=== PATIENT | female | born 1945 | race Caucasian/White ===

== ENCOUNTER 2019-03-09 13:08 | Outpatient (CLI) | payer MEDICARE, OTHER, SELFPAY ==
--- NOTE | 2019-03-09 12:45 | USCV_ITS ---
Josephine Ellis Age: 73 Gender: F : 1945 Exam Date: 03/09/2019 13:18 Ordering Phys: Osbaldo Garza DPM Technologist: [place] [facility] [place]: PVD RIGHT LEFT Brachial 139.00 mmHg Brachial 124.00 mmHg Pressure (mmHg) Waveform Pressure (mmHg) Waveform 168.00 High Thigh 165.00 151.00 Below Knee 160.00 163.00 [employer] 163.00 183.00 DPA 162.00 1.32 Ankle/Brachial Index 1.17 125.00 Pre-Exercise Toe Pressure 57.00 0.90 Pre-Exercise Toe/Brachial Index 0.41 FINDINGS Normal resting ABIs bilaterally Normal resting TBI on the right side Moderately diminished resting TBI on the left side PVR waveforms showing slight blunting of the dicrotic notch bilaterally CONCLUSIONS Normal resting BISI and TBI on the right side, s suggesting no significant arterial obstruction Normal BISI with abnormal TBI on the left side, suggestive of moderate peripheral artery disease, possibly involving the distal vessels Dr Gisela Conn MD [facility] (Electronically Signed) Final Date: 09 March 2019 18:55 S
--- NOTE | 2019-03-09 13:30 | US_ITS ---
WS: [id number] Ultrasound of the distal lateral aspect of the right leg, 03/09/2019 Clinical Data: right ankle bite Comparison: None. Findings: There is a large amount of subcutaneous fluid in the soft tissue superior to the right ankle. No absc ess is seen. There are no cysts or abnormal masses. US/US soft tissue/extremity [id number] Impression: 1. Subcutaneous fluid in the soft tissue superior to the right ankle. 2. Negative for abscess, seroma or cyst.
== END 2019-03-09 13:09 | disposition home or self-care (01) ==
PROVIDERS: Family Provider Family Medicine; PCP Family Medicine; Visit Provider Podiatrist Foot & Ankle Surgery
DX: S91.051A Open bite, right ankle, initial encounter (principal); X58.XXXA Exposure to other specified factors, initial encounter; I73.9 Peripheral vascular disease, unspecified; M79.9 Soft tissue disorder, unspecified
CPT/HCPCS: 76882; 93923

== ENCOUNTER 2019-03-20 12:47 | Outpatient (CLI) | payer MEDICARE, OTHER, SELFPAY ==
[2019-03-20 13:43] LABS: Immunoglobulin IGG 1360 mg/dL (700-1600)
== END 2019-03-20 12:48 | disposition home or self-care (01) ==
LOC: LAB 13:00
PROVIDERS: Family Provider Family Medicine; PCP Family Medicine; Visit Provider Podiatrist Foot & Ankle Surgery
DX: R21 Rash and other nonspecific skin eruption (principal)
CPT/HCPCS: 36415; 82784

== ENCOUNTER → 2019-04-03 08:30 | Outpatient (BNVA) | payer MEDICARE, OTHER, SELFPAY | PROVIDERS: Family Provider Family Medicine; PCP Family Medicine; Visit Provider Podiatrist Foot & Ankle Surgery | DX: R21 Rash and other nonspecific skin eruption (principal); A69.20 Lyme disease, unspecified; D49.2 Neoplasm of unspecified behavior of bone, soft tissue, and skin; L81.9 Disorder of pigmentation, unspecified | CPT/HCPCS: 88305 ==

== ENCOUNTER 2019-07-09 13:16 | Outpatient (CLI) | payer MEDICARE, OTHER, SELFPAY | END 2019-07-09 13:17 | disposition home or self-care (01) | LOC: WOUND 13:17 | PROVIDERS: Family Provider Family Medicine; PCP Family Medicine; Visit Provider Nurse Practitioner Family | DX: I96 Gangrene, not elsewhere classified (principal); L97.812 Non-pressure chronic ulcer of other part of right lower leg with fat layer exposed | CPT/HCPCS: 11042; 87070; 87077; 87176; 87186; 87205 ==

== ENCOUNTER 2019-07-16 07:55 | Outpatient (CLI) | payer MEDICARE, OTHER, SELFPAY | END 2019-07-16 07:56 | disposition home or self-care (01) | LOC: WOUND 07:58 | PROVIDERS: Family Provider Family Medicine; PCP Family Medicine; Visit Provider Nurse Practitioner Family | DX: I96 Gangrene, not elsewhere classified (principal); L97.812 Non-pressure chronic ulcer of other part of right lower leg with fat layer exposed | CPT/HCPCS: 11042 ==

== ENCOUNTER 2019-07-23 09:23 | Outpatient (CLI) | payer MEDICARE, OTHER, SELFPAY | END 2019-07-23 09:24 | disposition home or self-care (01) | LOC: WOUND 09:24 | PROVIDERS: Family Provider Family Medicine; PCP Family Medicine; Visit Provider Nurse Practitioner Family | DX: I87.2 Venous insufficiency (chronic) (peripheral) (principal); L97.812 Non-pressure chronic ulcer of other part of right lower leg with fat layer exposed | CPT/HCPCS: 11042 ==

== ENCOUNTER 2019-07-24 13:07 | Outpatient (CLI) | payer MEDICARE, OTHER, SELFPAY ==
--- NOTE | 2019-07-24 | USCV_ITS ---
Josephine Ellis Age: 73 Gender: F : 1945 Exam Date: 07/24/2019 13:10 Ordering Phys: Kadi Barnes Technologist: Justina Sanders [place] [facility] [place]ication: HISTORY: Patient has ulcers. PROCEDURES: Bilateral duplex Venous Insufficiency study of the Deep and Superficial systems was carried out according to normal protocol with the patient in supine positon for deep system and dependent position for the superficial system. FINDINGS: There is no evidence of bilateral deep vein thrombosis. No evidence of superficial thrombosis in the bilateral saphenous system. No evidence of reflux was noted in the bilateral deep venous system. No venous reflux noted in the bilateral greater saphenous vein. No venous reflux noted in the bilateral small saphenous vein. Venous reflux was demonstrated in the LEFT SFJ with a spectral display of greater than 500 milliseconds. CONCLUSIONS No evidence of DVT in the above-mentioned identifiable veins. No significant venous reflux in the superficial or deep veins The venous dimensions and the depth from the surface are as mentioned above Dr Gisela Conn MD [facility] (Electronically Signed) Final Date: 24 Jul 2019 15:43 S
== END 2019-07-24 13:08 | disposition home or self-care (01) ==
LOC: RAD 13:13
PROVIDERS: PCP Family Medicine; Visit Provider Nurse Practitioner Family
DX: M79.605 Pain in left leg (principal); M79.604 Pain in right leg; L97.929 Non-pressure chronic ulcer of unspecified part of left lower leg with unspecified severity; L97.919 Non-pressure chronic ulcer of unspecified part of right lower leg with unspecified severity
CPT/HCPCS: 93970

== ENCOUNTER 2019-07-30 09:15 | Outpatient (CLI) | payer MEDICARE, OTHER, SELFPAY | END 2019-07-30 09:16 | disposition home or self-care (01) | LOC: WOUND 09:16 | PROVIDERS: PCP Family Medicine; Visit Provider Nurse Practitioner Family | DX: I87.2 Venous insufficiency (chronic) (peripheral) (principal); L97.812 Non-pressure chronic ulcer of other part of right lower leg with fat layer exposed | CPT/HCPCS: 11042 ==

== ENCOUNTER 2019-08-03 14:10 | Outpatient (CLI) | payer MEDICARE, OTHER, SELFPAY | END 2019-08-03 14:11 | disposition home or self-care (01) | LOC: WOUND 14:11 | PROVIDERS: PCP Family Medicine; Visit Provider Nurse Practitioner Family | DX: I87.2 Venous insufficiency (chronic) (peripheral) (principal); L97.812 Non-pressure chronic ulcer of other part of right lower leg with fat layer exposed | CPT/HCPCS: 29581; G0463 ==

== ENCOUNTER 2019-08-05 13:11 | Outpatient (CLI) | payer MEDICARE, OTHER, SELFPAY | END 2019-08-05 13:12 | disposition home or self-care (01) | LOC: WOUND 13:13 | PROVIDERS: PCP Family Medicine; Visit Provider Thoracic Surgery (Cardiothoracic Vascular Surgery) | DX: Z51.89 Encounter for other specified aftercare (principal) | CPT/HCPCS: 29581 ==

== ENCOUNTER 2019-08-10 13:14 | Outpatient (CLI) | payer MEDICARE, OTHER, SELFPAY | END 2019-08-10 13:15 | disposition home or self-care (01) | LOC: WOUND 13:16 | PROVIDERS: PCP Family Medicine; Visit Provider Nurse Practitioner Family | DX: Z09 Encounter for follow-up examination after completed treatment for conditions other than malignant neoplasm (principal) | CPT/HCPCS: 99212; A6545 ==

== ENCOUNTER 2019-12-14 10:19 | Outpatient (CLI) | payer MEDICARE, OTHER, SELFPAY ==
--- NOTE | 2019-12-14 10:28 | MM_ITS ---
WS: [id number] BILATERAL SCREENING DIGITAL MAMMOGRAM WITH CAD HISTORY: SCREENING COMPARISON: 12/02/2018 and 09/17/2018 and 06/06/2017 Bilateral CC and MLO views submitted. Computer aided detection analyzed. Breast composition: There are scattered areas of fibroglandular density. No suspicious masses, microc alcifications or architectural distortion. Benign calcifications within each breast. MM/[place] [id number] IMPRESSION: BI-RADS: 2-Benign FOLLOW UP: 1 Year Follow-up
== END 2019-12-14 10:20 | disposition home or self-care (01) ==
LOC: RADSHAW 10:26
PROVIDERS: PCP Family Medicine; Visit Provider Family Medicine
DX: Z12.31 Encounter for screening mammogram for malignant neoplasm of breast (principal)
CPT/HCPCS: 77067

== ENCOUNTER → 2019-12-17 15:30 | Outpatient (BNVA) | payer MEDICARE, OTHER, SELFPAY | PROVIDERS: PCP Family Medicine; Visit Provider Orthopaedic Surgery | DX: M47.896 Other spondylosis, lumbar region (principal); G95.89 Other specified diseases of spinal cord; M54.5 Low back pain | CPT/HCPCS: 72100; 72114 ==

== ENCOUNTER 2020-01-04 08:31 | Outpatient (CLI) | payer MEDICARE, OTHER, SELFPAY ==
--- NOTE | 2020-01-04 09:00 | IR_ITS ---
WS: [id number] Lumbar myelogram, 01/04/2020 Clinical Data: Lumbar spine pain Comparison: Lumbar spine, 12/17/2019. Fluoroscopy time: 1.1 minutes. Findings: With the usual technique, a 22 gauge spinal needle was inserted into the lumbar subarachnoid space at L2-L3. The contrast material was hand injected. Approximately 15 mL of 240 mg/mL Omnipaque entered the lumba r subarachnoid space. No intramedullary or intradural defects could be seen. There are extradural def ects noted posteriorly at L1-L2, L2-L3, and L3-L4. The contrast material did not penetrate below the L5-S1 level. Flexion, extension and neutral lateral views demonstrated no change in subluxation. The osteoporosis, osteoarthritis and degenerative disc narrowing seen on the prior study remain the same. There is a d extroscoliosis. Again the retrolisthesis of L3 on L4 and L2 on L3 remain unchanged. There is limitati on of motion on flexion and extension. There is no change in the retrolisthesis. There is an anteroli sthesis of L5-S1 also unchanged and unaffected by flexion or extension. Wedging of the T12 and L1 gagan tebral bodies is seen again. There is sclerosis of both SI joints. IR/IR myelogram sp lumbar [id number] Impression: 1. Negative for intramedullary or intradural defects. 2. Extradural defects seen posteriorly at L1-L2, L2-L3 and L3-L4. 3. Osteoarthritis, osteoporosis, and limitation of motion on flexion or and ext ension unchanged. 4. Retrolisthesis at L2-L3, L3-L4 and anterolateral listhesis at L5-S1 unchange d. 5. Sclerosis of both SI joints. 6. Probable extradural defect at L5-S1 with lack of penetration of the contrast material distally.
--- NOTE | 2020-01-04 09:03 | CT_ITS ---
WS: [id number] CT of the lumbar spine, post myelogram, additional two-dimensional coronal and sagittal imaging was o btained. 01/04/2020 Clinical Data: Lumbar stenosis with neurogenic claudication Comparison: CT lumbar spine, 07/11/2016. DLP: 1840.[address] scans at [facility] use at least one of these dose optimization techniques: automat ed exposure control; mA and/or kV adjustment per patient size (includes targeted exams where dose is matched to clinical indication); or iterative reconstruction. Findings: There is extradural narrowing at L2-L3, L3-L4 and L5-S1. There is osteoarthritis of all lum bar vertebral bodies from L1 through L3. There is degenerative disc disease at T12-L1, L1-L2, L2-L3, L3-L4 and L5-S1. Retrolisthesis of L2 on L3 and L3 on L4 remain unchanged. There is an anterolisthesi s of L5 on S1. No compression fractures are seen. There is sclerosis of both SI joints. T12-L1: No canal stenosis, disc bulge or foraminal narrowing is seen. L1-L2: There is mild disc protrusion on the right causing minimal canal stenosis. Osteoarthritis of f acet joints can be seen. L2-L3: There is a posterior disc bulge causing canal stenosis along with facet joint hypertrophy caus ing bilateral foraminal stenosis. L3-L4: There is a posterior disc bulge worse on the left than the right along with facet joint hypert rophy causing canal and foraminal stenosis. L4-L5: There is a posterior uniform disc bulge causing canal stenosis along with facet joint hypertro phy causing bilateral foraminal stenosis. L5-S1: There is a posterior disc bulge causing mild canal stenosis along with facet joint arthritis c ausing foraminal stenosis. CT/CT lumbar spine w con [id number] Impression: 1. Retrolisthesis of L2 on L3 and L3 on L4 unchanged. 2. Anterolisthesis of L5 on S1 unchanged. 3. Multilevel degenerative disc disease and osteoarthritis. 4. Multilevel canal and foraminal stenosis.
[2020-01-04] MEDS: iohexol 240 mg/mL 50 mL Btl INTRATHECA (09:50)
== END 2020-01-04 08:32 | disposition home or self-care (01) ==
LOC: RADWPI 08:33
PROVIDERS: PCP Family Medicine; Visit Provider Orthopaedic Surgery
DX: M48.062 Spinal stenosis, lumbar region with neurogenic claudication (principal); M81.0 Age-related osteoporosis without current pathological fracture; M47.819 Spondylosis without myelopathy or radiculopathy, site unspecified; M51.36 Other intervertebral disc degeneration, lumbar region; M48.061 Spinal stenosis, lumbar region without neurogenic claudication
CPT/HCPCS: 62304; 72120; 72132; Q9966

== ENCOUNTER → 2020-01-08 09:59 | Outpatient (BNVA) | payer MEDICARE, OTHER, SELFPAY | PROVIDERS: PCP Family Medicine; Visit Provider Surgery | DX: Z11.59 Encounter for screening for other viral diseases (principal); R13.10 Dysphagia, unspecified | CPT/HCPCS: 87635 ==

== ENCOUNTER 2020-01-13 08:49 | Day surgery (SDC) | payer MEDICARE, OTHER, SELFPAY ==
[2020-01-12 15:09] VITALS: BMI 30.6
[2020-01-13 08:53] VITALS: BP 142/79; PULSE 71; RESP 18; TEMP 36.6; O2SAT 96
[2020-01-13] MEDS: sodium chloride 0.9% 1,000 ML 30 ML IV (09:14)
--- NOTE | 2020-01-13 09:50 | ANES.PREANE2 ---
Pre-Anesthetic Assessment Pre-Anesthetic Assessment: Height/Weight: Height 1.65 m Weight 83.461 kg Temp Pulse Resp BP Pulse Ox 97.9 F 71 18 142/79 96 01/13/20 08:53 01/13/20 08:53 01/13/20 08:53 01/13/20 08:53 01/13/20 08:53 Preop Diagnosis: dysphagia Proposed Procedure: Operation Date: 01/13/20 10:20 Proposed Procedures p EGD Dilation W/ Balloon 27768 R13.10(Not Applicable) - Adolfo Pearson MD Familial anesthetic complications: None Was Beta Michelle taken within 24 hours: N/A Last intake: Intake Last Liquid Date 01/12/20 Last Liquid Time 21:00 Last Solid Date 01/12/20 Last Solid Time 21:00 Social: Social History: No alcohol and No tobacco Exam: Pre-Anes Outpt Exam: alert, oriented x 3, clear to auscultation bilaterally and regular rate & rhythm Airway: Cervical ROM: WNL MP: 2 Dentition: Full CV/HEM: CV/HEM: HTN GI: Comments: dysphagia Anesthetic Plan: ASA status: 2 Anesthesia: MAC Risk of > 500 ml blood loss (7ml/kg in children): No Meds/Allergies Current Medications: Current Medications Generic Name Dose Route Start Last Admin Trade Name Freq PRN Reason Stop Dose Admin Sodium Chloride 1,000 mls @ 30 ml s/hr 01/13/20 09:00 01/13/20 09:14 Sodium Chloride 0.9% IV 30 mls/hr .Q24H KARO Administration PFSH Anesthesia PFSH: Medical History (Updated 12/17/19 @ 16:27 by Enio Bojorquez DO) Squamous cell carcinoma of right lower leg Surgical History H/O esophagogastroduodenoscopy H/O knee surgery H/O right knee surgery History of hysterectomy for indication other than cancer S/P foot surgery, left Status post colonoscopy Status post laparoscopic cholecystectomy Social History Smoking and tobacco status: never smoked Alcohol intake: never Lives independently: Yes Household members: spouse Marital status: Current occupational status: retired History of recent travel: No Data Anesthesia Cardiac Studies: No Data to Display
[2020-01-13 12:03] VITALS: BP 128/78; PULSE 85; RESP 18; TEMP 36.6; O2SAT 96
[2020-01-13 12:19] VITALS: BP 132/89; PULSE 81; RESP 18; TEMP 36.6; O2SAT 96
--- NOTE | 2020-01-13 21:03 | ANE.PACU2 ---
Inpatient post-anesthesia follow up: Airway intact: Yes Vital signs: Temperature 97.9 F Pulse Rate 81 Respiratory Rate 18 Blood Pressure 132/89 Pulse Oximetry 96 Oxygen Delivery Me thod Room Air Oxygen Flow Rate Fraction of Inspir ed Oxygen Hydration adequate: Yes Nausea and vomiting: No Pain level: 2 Mental status: Baseline
--- NOTE | 2020-01-14 14:45 | W.PM.OPSUD ---
Surgery/Procedure H&P Update DATE OF PROCEDURE: January 13, 2020 DATE H&P PERFORMED: 12/14/19 H&P UPDATE INFORMATION: I have reviewed H&P completed within last 30 days, I have examined patient prior to procedure and No changes to prior documentation PREOP DIAGNOSIS: dysphagia PLANNED PROCEDURE: Operation Date: 01/13/20 10:20 Proposed Procedures p EGD Dilation W/ Balloon 72434 R13.10(Not Applicable) - Adolfo Pearson MD
== END 2020-01-13 13:04 | disposition home or self-care (01) ==
PROVIDERS: PCP Family Medicine; Visit Provider Surgery
DX: R13.10 Dysphagia, unspecified (principal); K44.9 Diaphragmatic hernia without obstruction or gangrene; K22.2 Esophageal obstruction; I10 Essential (primary) hypertension; Z90.710 Acquired absence of both cervix and uterus; Z90.49 Acquired absence of other specified parts of digestive tract; Z79.82 Long term (current) use of aspirin; K21.9 Gastro-esophageal reflux disease without esophagitis; Z85.828 Personal history of other malignant neoplasm of skin
CPT/HCPCS: 12345; 43249; J2704; J3490; J7030

== ENCOUNTER 2020-01-27 09:50 | Outpatient (CLI) | payer MEDICARE, OTHER, SELFPAY ==
--- NOTE | 2020-01-27 09:55 | FL_ITS ---
WS: [id number] Barium swallow and esophagram, upper GI series with air, 01/27/2020 Clinical Data: R13.10 - Dysphagia, unspecified Comparison: Upper GI series, 04/06/2016. Fluoroscopy time: 1.0 minutes. Findings: The patient swallowed the thick and thin barium, and it flowed to the hypopharynx without hesitation. No stricture, mass, polyp or erosion was seen. No aspiration or penetration was seen. The barium passed into the esophagus and there was normal motility throughout. There is moderate narr owing of the distal esophagus which may represent the site of the dilatation. No hiatal hernia, reflu x, stricture, polyp, mass, erosion or ulcer was noted. No reflux was present. The patient has a large paraesophageal hiatal hernia unchanged in position. The stomach showed no erosion, polyp mass or ulcer. The rotation of the stomach and its location in t he lower chest have not changed. The duodenal bulb filled normally without ulcer or erosion. The smal l bowel is located on the right side of the abdomen which has been noted before.. FL/FL upper GI w air* [id number] Impression: 1. Smooth narrowing of the distal esophagus which may be the site of the dilata tion. 2. Large paraesophageal hiatal hernia with a malrotation of the stomach unchang ed. 3. Negative for ulcer, reflux, mass or erosion. 4. Malrotation of small bowel unchanged.
== END 2020-01-27 09:51 | disposition home or self-care (01) ==
LOC: RADWPI 09:55
PROVIDERS: PCP Family Medicine; Visit Provider Surgery
DX: R13.10 Dysphagia, unspecified (principal); K44.9 Diaphragmatic hernia without obstruction or gangrene
CPT/HCPCS: 74246

== ENCOUNTER → 2020-02-11 14:44 | Outpatient (BNVA) | payer MEDICARE, OTHER, SELFPAY | PROVIDERS: PCP Family Medicine; Referring Provider Family Medicine; Visit Provider Nurse Practitioner Family | DX: N39.0 Urinary tract infection, site not specified (principal); Z87.440 Personal history of urinary (tract) infections | CPT/HCPCS: 81003; 87086 ==

== ENCOUNTER → 2020-03-11 10:20 | Outpatient (BNVA) | payer MEDICARE, SELFPAY | PROVIDERS: PCP Family Medicine; Visit Provider Urology | DX: N39.0 Urinary tract infection, site not specified (principal) | CPT/HCPCS: 81003 ==

== ENCOUNTER → 2020-03-21 10:30 | Outpatient (BNVA) | payer MEDICARE, SELFPAY | PROVIDERS: PCP Family Medicine; Visit Provider Anesthesiology Pain Medicine | DX: M48.062 Spinal stenosis, lumbar region with neurogenic claudication (principal); M47.816 Spondylosis without myelopathy or radiculopathy, lumbar region; M51.36 Other intervertebral disc degeneration, lumbar region; M43.10 Spondylolisthesis, site unspecified; Z79.891 Long term (current) use of opiate analgesic | CPT/HCPCS: 99204 ==

== ENCOUNTER → 2020-05-06 12:59 | Outpatient (BNVA) | payer MEDICARE, SELFPAY | PROVIDERS: PCP Family Medicine; Visit Provider Anesthesiology Pain Medicine | DX: M47.816 Spondylosis without myelopathy or radiculopathy, lumbar region (principal); M48.062 Spinal stenosis, lumbar region with neurogenic claudication | CPT/HCPCS: 64493; 64494; 64495 ==

== ENCOUNTER → 2020-05-26 09:24 | Outpatient (BNVA) | payer MEDICARE, SELFPAY | PROVIDERS: PCP Family Medicine; Visit Provider Anesthesiology Pain Medicine | DX: M51.36 Other intervertebral disc degeneration, lumbar region (principal); M48.062 Spinal stenosis, lumbar region with neurogenic claudication; M47.816 Spondylosis without myelopathy or radiculopathy, lumbar region; M43.10 Spondylolisthesis, site unspecified; M79.604 Pain in right leg; Z79.891 Long term (current) use of opiate analgesic | CPT/HCPCS: 99214 ==

== ENCOUNTER → 2020-08-30 14:40 | Outpatient (BNVA) | payer MEDICARE, SELFPAY | PROVIDERS: PCP Family Medicine; Visit Provider Nurse Practitioner Family | DX: N39.0 Urinary tract infection, site not specified (principal) | CPT/HCPCS: 81003 ==

== ENCOUNTER → 2021-04-03 07:57 | Outpatient (BNVA) | payer MEDICARE, SELFPAY | PROVIDERS: PCP Family Medicine; Visit Provider Nurse Practitioner Family | DX: N39.0 Urinary tract infection, site not specified (principal) | CPT/HCPCS: 81003 ==

== ENCOUNTER 2021-07-20 12:24 | Outpatient (CLI) | payer MEDICARE, SELFPAY ==
--- NOTE | 2021-07-20 12:41 | CT_ITS ---
WS: [id number] CT LUMBAR SPINE, noncontrast. HISTORY: BACK PAIN ACUTE TECHNIQUE: Contiguous 2.5 mm axial imaging are performed. Sagittal and coronal reformats are submitte d and reviewed. All CT scans at [facility] use at least one of these dose optimization techni ques: automated exposure control; mA and/or kV adjustment per patient size (includes targeted exams w here dose is matched to clinical indication); or iterative reconstruction. IV contrast: None DLP: 2150.47 mGy.cm COMPARISON: 01/04/2020 Severe degenerative thoracolumbar scoliosis. Increase in the lumbar lordosis. Marked osteopenia. Retr olisthesis of L2 and L3 by 3 and 4 mm, respectively. L5 anterolisthesis by 4.6 mm. New fracture noted through the L4 vertebral body. Fracture extends to the mid body anterior to posterior with only mini mal loss of height by approximately 10-15% on the RIGHT. No additional new fracture. No acute sacral fracture is identified. L1-2: Mild osteophytic ridging and facet arthritis. Annular disc bulging with no stenosis. L2-3: Annular disc bulging and osteophytic ridging. Very small LEFT subarticular disc protrusion. L3-4: Mild diffuse annular disc bulging with ligamentum flavum and facet arthritis. Osteophytic ridgi ng. Disc and osteophyte encroachment upon the ventral thecal sac resulting in mild central and bilate ral subarticular recess stenosis and mild foraminal stenosis. L4-5: Marked facet joint arthritis with moderate annular disc bulging and osteophytic ridging. Modera te RIGHT and mild LEFT foraminal stenosis. L5-S1: Mild osteophytic ridging and annular disc bulging. Osteophytes encroach into the subarticular recesses. Mild bilateral foraminal stenosis. Marked sclerosis involving the RIGHT SI joint. Sclerosis involves the sacral and iliac side of the poncho int. There is air and mild widening of the SI joints and erosions. These findings were also present i 2019 with only mild progression. CT/CT lumbar spine wo con* [id number] IMPRESSION: 1. New L4 compression fracture by approximately 10-15%. No retropulsion. New s arthur 01/04/2020. Appears acute to subacute. 2. Advanced degenerative disc and spondylitic changes throughout the lumbar sp ine with rotary scoliosis and increased lumbar lordosis. 3. Mild central and bilateral subarticular recess and foraminal stenosis at L3 -4 with disc encroachment into the subarticular recesses. 4. Ligamentum flavum hypertrophy at L4-5 and facet arthritis resulting in mild central and subarticular recess stenosis and moderate RIGHT foraminal stenosis . 5. L5 anterolisthesis by 4.6 mm.
--- NOTE | 2021-07-20 12:51 | CT_ITS ---
WS: [id number] CT PELVIS WITHOUT CONTRAST. HISTORY: ACUTE BACK PAIN TECHNIQUE: Contiguous imaging is performed of the pelvis without contrast. Coronal and sagittal refor mats are reviewed. All CT scans at [facility] use at least one of these dose optimization leora hniques: automated exposure control; mA and/or kV adjustment per patient size (includes targeted exam s where dose is matched to clinical indication); or iterative reconstruction. DLP: 2150.47 mGy.cm COMPARISON: 05/22/2018 Diffuse osteopenia. No pelvic fracture is identified. Severe RIGHT SI joint sclerosis with degenerati ve air, erosions and mild widening. Similar findings but to a lesser extent on the LEFT. No insuffici ency fracture is identified. Patient does have known L4 vertebral body fracture which is incompletely visualized on this examination. 5 mm anterolisthesis of L5. No pubic rami fracture. Mild narrowing o f the hip joints. Very mild osteoarthritic changes at the hip joints. No hip fracture. Small umbilical hernia contains fat only. Atherosclerosis aorta. CT/CT pelvis wo con [id number] IMPRESSION: 1. Severe bilateral sacroiliitis, likely osteoarthritis. Psoriatic arthritis i s also a possible etiology for the SI joint degeneration. 2. No pelvic fracture. 3. Partially visualized and recently reported L4 compression fracture.
== END 2021-07-20 12:25 | disposition home or self-care (01) ==
PROVIDERS: PCP Family Medicine; Visit Provider Family Medicine
DX: M54.89 Other dorsalgia (principal); M46.1 Sacroiliitis, not elsewhere classified; M85.80 Other specified disorders of bone density and structure, unspecified site
CPT/HCPCS: 72131; 72192

== ENCOUNTER → 2021-10-02 13:41 | Outpatient (BNVA) | payer MEDICARE, SELFPAY | PROVIDERS: PCP Family Medicine; Visit Provider Nurse Practitioner Family | DX: N39.0 Urinary tract infection, site not specified (principal) | CPT/HCPCS: 81003; 99213 ==

== ENCOUNTER → 2021-10-10 07:50 | Outpatient (BNVA) | payer MEDICARE, SELFPAY | PROVIDERS: PCP Family Medicine; Visit Provider Orthopaedic Surgery | DX: M43.10 Spondylolisthesis, site unspecified (principal); M48.062 Spinal stenosis, lumbar region with neurogenic claudication | CPT/HCPCS: 99214 ==

== ENCOUNTER → 2021-10-17 15:05 | Outpatient (BNVA) | payer MEDICARE, SELFPAY | PROVIDERS: PCP Family Medicine; Visit Provider Family Medicine | DX: M51.36 Other intervertebral disc degeneration, lumbar region (principal); M48.062 Spinal stenosis, lumbar region with neurogenic claudication; M54.9 Dorsalgia, unspecified | CPT/HCPCS: 80053; 85025; 85610 ==

== ENCOUNTER 2021-11-13 08:51 | Outpatient (CLI) | payer MEDICARE, OTHER, SELFPAY ==
--- NOTE | 2021-11-13 08:58 | MM_ITS ---
WS: [id number] BILATERAL SCREENING DIGITAL TOMOSYNTHESIS MAMMOGRAM WITH CAD HISTORY: SCREENING COMPARISON: 12/14/2019 and 09/17/2018 Bilateral CC and MLO views with tomosynthesis and synthetic mammography submitted. Computer aided det ection analyzed. Breast composition: There are scattered areas of fibroglandular density. No suspicious masses, microc alcifications or architectural distortion. Benign scattered calcifications within each breast. MM/[place] [id number] IMPRESSION: BI-RADS: 2-Benign FOLLOW UP: 1 Year Follow-up
== END 2021-11-13 08:52 | disposition home or self-care (01) ==
PROVIDERS: PCP Family Medicine; Visit Provider Family Medicine
DX: Z12.31 Encounter for screening mammogram for malignant neoplasm of breast (principal)
CPT/HCPCS: 77063; 77067

== ENCOUNTER 2021-12-05 10:08 | Outpatient (CLI) | payer MEDICARE, OTHER, SELFPAY | END 2021-12-05 10:09 | disposition home or self-care (01) | PROVIDERS: PCP Family Medicine; Visit Provider Orthopaedic Surgery | DX: Z01.818 Encounter for other preprocedural examination (principal) | CPT/HCPCS: 93005 ==

== ENCOUNTER 2021-12-11 15:50 | Inpatient (IN) | payer MEDICARE, SELFPAY ==
[2021-12-05 09:46] VITALS: BMI 28.9
--- NOTE | 2021-12-05 10:08 | ECG_ITS ---
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 Measurements Intervals [place] Rate: 62 P: 18 HI: 179 QRS: -5 QRSD: 98 T: 27 QT: 386 QTc: 394 Interpretive Statements SINUS RHYTHM Compared to ECG 06/10/2017 14:22:17 No significant changes Electronically Signed On 12-06-2021 8:20:20 CDT by Sandor Kumar M.D. [email or web address] Processing Devices [email or web address]/[id number]
--- NOTE | 2021-12-05 10:22 | ANES.PREANE2 ---
Pre-Anesthetic Assessment Height/Weight: Height 1.65 m Weight 78.925 kg Preop Diagnosis: dysphagia Operation Date: 12/11/21 10:15 Proposed Procedures p Spinal Fusion T9 [id number]/M43.10(Not Applicable) - Enio Bojorquez DO s Posterior Lumbar Interbody Fusion L5/S1(Not Applicable) - Enio Bojorquez DO s Lumbar Spine Decompression L3/4 L4/5 L5/S1(Not Applicable) - Enio Bojorquez DO Familial anesthetic complications: Feels she gets memory loss after each anesthesia, post-op shivering Social No alcohol and No tobacco Exam alert, oriented x 3, clear to auscultation bilaterally and regular rate & rhythm Airway Mallampati: Class II Dentition: full Pulmonary None reported CV/HEM Hypertension None reported Hepatic None reported GI Gastroesophageal Reflux Disease and Hiatal Hernia causes L arm pain Musc/skel Lower Back Pain leg edema, states her mother even had it Neuropsych None reported Anesthetic Plan ASA status: 3 Anesthesia: General Risk of > 500 ml blood loss (7ml/kg in children): No Medications/Allergies Home Medications Medication Instructions Recorded Confirmed Last Taken Type ascorbic acid (vitamin C) 500 mg 1,000 mg PO DAILY 02/26/19 12/05/21 1 Day Ago History capsule ~01/12/20 diclofenac potassium 25 mg capsule 25 mg PO BID 02/26/19 12/05/21 1 Day Ago History ~01/12/20 furosemide 40 mg tablet 40 mg PO QAM 02/26/19 12/05/21 1 Day Ago History ~01/12/20 calcium carbonate 500 mg calcium 500 mg PO DAILY 02/11/20 12/05/21 Unknown History (1,250 mg) tablet (Calcium 500) cinnamon bark 500 mg capsule 500 mg PO DAILY 02/11/20 12/05/21 Unknown History (Cinnamon) multivitamin,gx-wpbf-perzafgh 1 tab PO DAILY 02/11/20 12/05/21 Unknown History (Complete Multivitamin tablet) potassium chloride 20 mEq 20 meq PO DAILY 02/11/20 12/05/21 Unknown History tablet,extended release vitamin B complex (B 1 tab PO DAILY 02/11/20 12/05/21 Unknown History Complex-Vitamin B12 tablet) biotin 5 mg capsule 5 mg PO DAILY 04/03/21 12/05/21 Unknown History hydrocodone 5 mg-acetaminophen 325 0.5 tab PO Q8H PRN pain 1 month 11/27/21 12/05/21 Unknown Rx mg tablet #20 tabs tramadol 50 mg tablet 50 mg PO QID PRN pain 15 days #90 11/27/21 12/05/21 Unknown Rx tabs Allergies Allergy/AdvReac Type Severity Reaction Status Date / Time acetaminophen [From Percocet] Allergy Unknown Unknown Verified 12/05/21 09:41 ketorolac [From Toradol] Allergy Unknown Unknown Verified 12/05/21 09:41 oxycodone [From Percocet] Allergy Unknown Unknown Verified 12/05/21 09:41 PFS Anesthesia Medical History Recurrent UTI Squamous cell carcinoma of right lower leg Surgical History H/O esophagogastroduodenoscopy (01/13/20) H/O knee surgery H/O right knee surgery History of hysterectomy for indication other than cancer S/P foot surgery, left Status post colonoscopy Status post laparoscopic cholecystectomy Family History Mother , AT AGE 91 Stroke Father , at age 87 No problems noted. Social History Smoking and tobacco status: former smoker Second hand smoke exposure: No Alcohol intake: never Lives independently: Yes Household members: spouse Marital status: Current occupational status: retired History of recent travel: No Data Anesthesia : 12/05/21 09:58 Cardiac Studies: No Data to Display
[2021-12-05 10:38] LABS: Anion Gap 12.3 (5-19); Blood Urea Nitrogen 18 mg/dL (8-23); Calcium 9.3 mg/dL (8.5-10.5); Carbon Dioxide 31 mmol/L (22-29); Chloride 101 mmol/L (98-107); Glucose 81 mg/dL (65-115); Osmolality Calculated 291 mOsm/kg (285-295); Potassium 4.3 mmol/L (3.5-5.1); Sodium 140 mmol/L (136-145)
[2021-12-11] VITALS (32 sets, daily range): BP systolic 89–146; BP diastolic 50–83; PULSE 68–93; RESP 12–18; TEMP 36.1–36.9; O2SAT 91–99
--- NOTE | 2021-12-11 | SCC_ITS ---
Procedure done: 1.? T19 - pelvis posterolateral fusion 2. T9to S1 instrumentation 3. lumbo pelvic instrumentation 4. Open SI joint fusion (88534) Right 5. Open SI joint fusion (19454) Left 5. L3/4 laminectomy with partial facetectomies 6. L4/5 laminectomy with partial facetectomies 7. L5/S1 laminectomy with partial facetectomies 8. computer navigation/ stereotactic for spine 9. Bone marrow aspirate from right iliac crest 10. use of autograft 11. use of allograft 0.34 seconds of fluoroscopic guidance, for a cumulative dose of 73.1 mGy, was provided to Dr. Bojorquez by the radiology department. C-arm images of the lumbar spine were saved for the patient's permanent record. [facility]
[2021-12-11] MEDS: sodium chloride 0.9% 1,000 ML 30 ML IV (09:03)
--- NOTE | 2021-12-11 09:36 | P.ANESUD_ITS ---
Pre-Anesthetic Update Pre-Anesthetic Assessment: Date of Surgery/Procedure: 12/11/21 Preop Soraya gnosis: DDD T/L spine, lumbar stenosis with neurogenic claudication Proposed Procedure: Operation Date: 12/11/21 10:00 Proposed Procedures p Spinal Fusion T9 [id number]/M43.10(Not Applicable) - Enio Bojorquez, DO s Posterior Lumbar Interbody Fusion L5/S1(Not Applicable) - Enio Bojorquez, DO s Lumbar Spine Decompression L3/4 L4/5 L5/S1(Not Applicable) - Enio Bojorquez, DO Any changes to Pre-Anesthetic Assessment?: No Last Intake: Intake Last Liquid Date 12/10/21 Last Liquid Time 20:00 Last Solid Date 12/10/21 Last Solid Time 22:30 Vitals: Temperature 97.7 F 12/11/21 08:42 Temperature Source Temporal Artery S can 12/11/21 08:42 Pulse Rate 68 12/11/21 08:42 Respiratory Rate 18 12/11/21 08:42 Blood Pressure 146/77 12/11/21 08:42 Blood Pressure Ginger n 100 12/11/21 08:42 Pulse Oximetry 96 12/11/21 08:42 Oxygen Delivery Me thod 12/11/21 08:43 Exam: Pre-Anes Outpt Exam: alert, oriented x 3, clear to auscultation bilaterally and regular rate & rhythm Cardiac Studies: No Data to Display
--- NOTE | 2021-12-11 09:56 | P.HP_ITS ---
Providers/Chief Complaint Primary Care Provider: Pato Coelho MD Chief Complaint: PSF/DECOMPRESSION/PLIF History of Present Illness Josephine Ellis is a 76 year old female ?low back pain. She rates her pain a 3/10 today to her low back and right buttocks. She states her pain increases as the day progresses to a 8/10. She enjoys working in her yard and gardening and has been unable to do so due to pain. She walks bent forward and will try to stand up straight however this does cause her pain. She has tried bilateral L3/4, L4/5, and L5/S1 facet injections and physical therapy in the past with no relief. She has a history of previous spine surgery?right L5-S1 hemilaminotomy/discectomy/foraminotomy?done by Dr. Gunderson in 03/2015. Review of Systems General: Reports: 10 or more systems reviewed and unremarkable except in HPI a nd below Const: Denies: fever(s) or chills Eyes: Denies: change in vision ENMT: Denies: throat pain Card: Denies: chest pain Resp: Denies: dyspnea or productive cough GI: Reports: abdominal pain; Denies: nausea or vomiting : Denies: urinary incontinence Musc: Reports: back pain, extremity pain and limited range of motion Skin/Breast: Denies: rash Neuro: Reports: numbness in extremities and weakness in extremities; Denies: headache(s) Psych: Denies: anxiety Endo: Denies: polyuria Hemant/Lymph: Denies: easy bleeding All/Imm: Denies: urticaria Medications/Allergies Home Medications Medication Instructions Recorded Confirmed Last Taken Type ascorbic acid (vitamin C) 500 mg 1,000 mg PO DAILY 02/26/19 12/11/21 12/10/21 History capsule diclofenac potassium 25 mg capsule 25 mg PO BID 02/26/19 12/11/21 12/10/21 History furosemide 40 mg tablet 40 mg PO QAM 02/26/19 12/11/21 12/10/21 History calcium carbonate 500 mg calcium 500 mg PO DAILY 02/11/20 12/11/21 12/10/21 History (1,250 mg) tablet (Calcium 500) cinnamon bark 500 mg capsule 500 mg PO DAILY 02/11/20 12/11/21 12/10/21 History (Cinnamon) multivitamin,er-juvt-lpetjbes 1 tab PO DAILY 02/11/20 12/11/21 12/10/21 History (Complete Multivitamin tablet) potassium chloride 20 mEq 20 meq PO DAILY 02/11/20 12/11/21 12/10/21 History tablet,extended release vitamin B complex (B 1 tab PO DAILY 02/11/20 12/11/21 12/10/21 History Complex-Vitamin B12 tablet) biotin 5 mg capsule 5 mg PO DAILY 04/03/21 12/11/21 12/10/21 History tramadol 50 mg tablet 50 mg PO QID PRN pain 15 days #90 11/27/21 12/11/21 1 Rx tabs magnesium 500 mg tablet 500 mg PO DAILY 12/11/21 12/11/21 12/10/21 History Allergies Allergy/AdvReac Type Severity Reaction Status Date / Time ketorolac [From Toradol] Allergy Unknown Unknown Verified 12/05/21 09:41 oxycodone [From Percocet] Allergy Unknown Unknown Verified 12/05/21 09:41 PFSH Acute PFSH: Medical History Recurrent UTI Squamous cell carcinoma of right lower leg Surgical History H/O esophagogastroduodenoscopy (01/13/20) H/O knee surgery H/O right knee surgery History of hysterectomy for indication other than cancer S/P foot surgery, left Status post colonoscopy Status post laparoscopic cholecystectomy Family History Mother , AT AGE 91 Stroke Father , at age 87 No problems noted. Social History Smoking and tobacco status: former smoker Second hand smoke exposure: No Alcohol intake: never Lives independently: Yes Household members: spouse Marital status: Current occupational status: retired History of recent travel: No Vitals/I&O/Wt Last Vital Signs Temp 97.7 F 12/11/21 08:42 Pulse 68 12/11/21 08:42 Resp 18 12/11/21 08:42 BP 146/77 12/11/21 08:42 Pulse Ox 96 12/11/21 08:42 O2 Del Method 12/11/21 08:43 Physical Exam Narrative: CONSTITUTIONAL: The patient is a normal appearing [] in no apparent distress. GENERAL: Patient in no acute distress. CARDIAC: Regular rate and rhythm. CHEST: Normal inspiratory effort, normal respiratory rate. ABDOMEN: Soft and nontender. SKIN: Clear, warm and intact. NEURO?PSYCH: The patient is alert and oriented to person, place and time. Sensorv /SILT Motor StrengthShoulder abduction C5 5/5Wrist extension C6 5/5Elbow extension C7 5/5Hand Correctional Program Specialist C8 5/5Finger abduction T15/5 Radial/ Ulnar/ Median n intact LowerSensory (SILT)Motor StrengthHin flexion L2/3Ant/inner thigh 5/5Hip adduction L2/3 5/5Knee extension L4 Lat thigh, 5/5Toe dorsiflexion L5 5/5Ankle dorsiflexion L5/ C76Cekavks flexion S1 5/5 DTRBleeps 2+Triceps 2+Brachioradialis 2+Patellar 2+Achilles 2+ Data : 12/05/21 09:58 A&P Assessment and plan (1) Spondylolisthesis: T9-Pelvis fusion with decompression Attestations Medical Necessity Statement*: failed conservtive tx Coding Level of Care Code Acute Toy Stuffer for Chg Fwd Diagnoses Spondylolisthesis M43.10
[2021-12-11] MEDS: ceFAZolin 2,000 MG in sodium chloride 0.9% (plus) 50 ML 100 MG IV ×3 (10:09→22:46)
[2021-12-11] MEDS: vancomycin 1,000 MG SDV 1000 MG XX (11:18)
[2021-12-11] MEDS: heparin, porcine 1,000 unit/mL INJ 10 mL 10000 UNIT XX ×2 (11:21→11:24)
[2021-12-11 15:23] LABS: Hematocrit 28.2 % (37.0-47.0)
--- NOTE | 2021-12-11 15:30 | SUR.OPER ---
family updated of surgical status
--- NOTE | 2021-12-11 16:30 | XR_ITS ---
WS: [id number] INTRAOPERATIVE TECHNIQUE: 3 Spot fluoroscopic images for intraoperative purposes. FLUOROSCOPY TIME: 34 seconds CLINICAL INFORMATION: OR PICS COMPARISON: None. FINDINGS: Pedicle screw fixation with interconnecting rides approximately T9-S1 with sacroiliac fixation screws . XR/XR lumbar spine 1V [id number] IMPRESSION: Images obtained for intraoperative purposes.
--- NOTE | 2021-12-11 16:44 | PM.OP ---
Operative Report Date of procedure: December 11, 2021 Pre-op diagnosis: Preop Diagnosis DDD T/L spine, lumbar stenosis with neurogenic claudication Post-op diagnosis: same Procedure done: 1.? T19 - pelvis posterolateral fusion 2. T9to S1 instrumentation 3. lumbo pelvic instrumentation 4. Open SI joint fusion (39221) Right 5. Open SI joint fusion (72347) Left 5. L3/4 laminectomy with partial facetectomies 6. L4/5 laminectomy with partial facetectomies 7. L5/S1 laminectomy with partial facetectomies 8. computer navigation/ stereotactic for spine 9. Bone marrow aspirate from right iliac crest 10. use of autograft 11. use of allograft Surgeon: Enio Bojorquez Platform Operations Director: Dileep Amato Platform Operations Director: The surgical garment fitter, Dileep Amato, THERON was needed for his expertise under the microscope. He was important and necessary throughout the procedure to complete in a safe and timely manner. He assisted with patient positioning prepping and draping tissue retraction suctioning of the operative field protection of the dural sac and tissue closure Estimated blood loss (mL): 1,000 Procedure: 1.? T19 - pelvis posterolateral fusion 2. T9to S1 instrumentation 3. lumbo pelvic instrumentation 4. Open SI joint fusion (77325) Right 5. Open SI joint fusion (97666) Left 5. L3/4 laminectomy with partial facetectomies 6. L4/5 laminectomy with partial facetectomies 7. L5/S1 laminectomy with partial facetectomies 8. computer navigation/ stereotactic for spine 9. Bone marrow aspirate from right iliac crest 10. use of autograft 11. use of allograft Patient is brought to the operative suite.? After undergoing anesthesia, the patient had neuro monitoring attached.? Patient was then placed in the prone position on the Taran table.? All areas of impingement were well-padded.? Patient was then prepped and draped in the normal sterile fashion.? Skin incision was then made over the T10 to S1.? Subperiosteal dissection was made out to the transverse processes of T9 down to L5.? And also exposing the sacral ala over the L5/S1 facet.? The SI joints were also exposed.? Next attention was brought to obtaining the bone marrow aspirate.? The [employer] bone marrow aspirate kit was used to aspirate bone marrow aspirate.? This was done by using the sharp probe to open up the bone.? Aspiration was performed and then the blunt probe was then used to dissect down to through the bone tunnel.? An aspirating well drawn back a millimeter approximately 20 cc of bone marrow aspirate was used.? Admixed with the allograft and autograft bone that will be used. Is brought to placing the fiducial for the computer navigation.? The computer navigation fiducial was hooked up to 2 pins were placed into the right iliac crest.? These 2 pins were later moved at the end of the case.? The C-arm was brought in and spun around the patient and then the information was linked to the computer in order to facilitate placing the screws. Next attention was brought to placing the sacral ala iliac screws.? These were done bilaterally.? The right side was done first.? The gearshift was placed using computer navigation.? And then the pedicle feeler was inserted in order to facilitate that there were no breaches.? This was also placed in order to facilitate marking where the screw was going to go.? Because Next the attention was brought to placing the open sacral iliac joint fusion.? The exposure was done over the sacroiliac joint.? Using the gearshift probe the SI joint was identified and a K wire was placed into the sacroiliac joint.? Tissue protectors were passed around the sacroiliac joint pain and then a drill was placed into the sacroiliac joint going in the parallel fashion into the SI joint.? Next a allograft cage was placed into the SI joint.? This was done superior to the plan.? The same process was repeated inferior to the pin.? Next attention was placed to placing the right sacral ala iliac screw using computer navigation this is a 80 mm 9.5 mm Adams screw. Next attention was brought to the left side.he gearshift was placed using computer navigation.? And then the pedicle feeler was inserted in order to facilitate that there were no breaches.? This was also placed in order to facilitate marking where the screw was going to go.? Because Next the attention was brought to placing the open sacral iliac joint fusion.? The exposure was done over the sacroiliac joint.? Using the gearshift probe the SI joint was identified and a K wire was placed into the sacroiliac joint.? Tissue protectors were passed around the sacroiliac joint pain and then a drill was placed into the sacroiliac joint going in the parallel fashion into the SI joint.? Next a allograft cage was placed into the SI joint.? This was done superior to the plan.? The same process was repeated inferior to the pin.? Next attention was placed to placing the right sacral ala iliac screw using computer navigation this is a 90 mm 9.5 mm Kash screw. A total of 4 cages were placed into the bilateral sacral iliac joints. Next attention was brought to placing the pedicle screws.? The technique for placing the pedicle screws was to use a drill followed by the gearshift probe.? Followed by the ball probe to feel the superior inferior medial lateral li of the pedicles.? Then placement of the screws.? Was done at each pedicle.? Screws were placed at S1 bilaterally, L5 bilaterally L4 bilaterally L3 bilaterally L2 on the left L1 on the right T12 bilaterally T11 bilaterally, T10 bilaterally and T9 bilaterally.? Next attention was brought to performing the laminectomy ofL3.? This was done using the high-speed bur Kerrisons and curettes.? Once the lamina was removed and then attention was brought to performing a partial facetectomy on the contralateral side.? This was done again using the high-speed bur curettes and Kerrisons.? The ligamentum flavum was taken down bilaterally from L3 to L4.? Attention was then brought to the facet on the ipsilateral side.? The facet was taken down.? The L4 nerve was decompressed as it passed around the L4 pedicle bilateral.? The laminectomy was done for purposes of decompressing the nerve ? The L3 nerve was identified as it traversed through the L3/4 foramen bilateral.? Next attention was brought to performing the laminectomy ofL4.? This was done using the high-speed bur Kerrisons and curettes.? Once the lamina was removed and then attention was brought to performing a partial facetectomy on the contralateral side.? This was done again using the high-speed bur curettes and Kerrisons.? The ligamentum flavum was taken down bilaterally from L4 to L5.? Attention was then brought to the facet on the ipsilateral side.? The facet was taken down.? The L5 nerve was decompressed as it passed around the L5 pedicle bilateral.? The laminectomy was done for purposes of decompressing the nerve ? The L4 nerve was identified as it traversed through the L4/5 foramen bilateral. Next attention was brought to performing the laminectomy ofL5.? This was done using the high-speed bur Kerrisons and curettes.? Once the lamina was removed and then attention was brought to performing a partial facetectomy on the contralateral side.? This was done again using the high-speed bur curettes and Kerrisons.? The ligamentum flavum was taken down bilaterally from L5 to S1.? Attention was then brought to the facet on the ipsilateral side.? The facet was taken down.? The S1 nerve was decompressed as it passed around the S1 pedicle bilateral.? The laminectomy was done for purposes of decompressing the nerve ? The L5 nerve was identified as it traversed through the L5 foramen bilateral. Attention was then brought to attaching the rods to the screws placed in the T10 down to S1 bilaterally and attaching onto the sacral ala iliac screw bilaterally.? Caps were torqued into position. Locking the construct in place. Wound was copiously irrigated and then attention was brought to decorticating the facets and transverse processes laterally.? Bone that was taken down from the lamina was used along with osteoamp fibers and sponges were packed into the lateral gutters along the facet joints.? This was done bilaterally. Wound was then closed in a layered fashion starting with the thoracolumbar fascia.? 0-vicryl was used the sub cutaneous tissue was closed with 2-0 vicryl and skin with 4-0 monocryl.? Glue was then used to seal the skin and a steril dressing was applied.? Patient was then placed in the supine position. The endotracheal tube was removed and patient was transferred to the PACU in stable condition.
[2021-12-11] MEDS: morphine 4 mg/mL SDV 1 mL 2 MG IVP ×5 (18:51→23:57)
[2021-12-11] MEDS: lactated ringers 1,000 ML 90 ML IV (18:51)
--- NOTE | 2021-12-11 18:59 | SUR.PHASEI ---
1705 SCDs on pump and working. 1750 500 cc sanginous drainage emptied from hemovac. Dr Bojorquez aware and ordered to infuse 1 unit PRBCs and H/H after blood infused.
--- NOTE | 2021-12-11 20:27 | ANE.PACU2 ---
Inpatient post-anesthesia follow up: Airway intact: Yes Vital signs: Temperature 97.5 F Pulse Rate 87 Respiratory Rate 14 Blood Pressure 105/60 Pulse Oximetry 98 Oxygen Delivery Me thod Nasal Cannula Oxygen Flow Rate 3 Fraction of Inspir ed Oxygen Hydration adequate: Yes Nausea and vomiting: No Pain level: 1 Mental status: Baseline
[2021-12-12] VITALS (14 sets, daily range): BP systolic 97–107; BP diastolic 50–58; PULSE 81–121; RESP 12–24; TEMP 37–37.8; O2SAT 90–98
[2021-12-12] MEDS: HYDROcodone-acetaminophen 5-325 mg Tablet PO ×4 (00:57→17:34)
[2021-12-12 02:09] LABS: Hematocrit 28.8 % (37.0-47.0)
[2021-12-12] MEDS: morphine 4 mg/mL SDV 1 mL 2 MG IVP ×8 (02:46→19:33)
[2021-12-12] MEDS: ceFAZolin 2,000 MG in sodium chloride 0.9% (plus) 50 ML 100 MG IV ×2 (06:23→15:14)
[2021-12-12] MEDS: FUROsemide 40 mg Tablet PO (06:24)
--- NOTE | 2021-12-12 07:19 | PM.PN ---
Subjective Subjective: POD 1 Patient resting. Denies any chest pain, shortness of breath, headaches. Vitals/I&O/Wt Last Vital Signs Temp 100.0 F H 12/12/21 05:15 Pulse 93 12/12/21 05:15 Resp 18 12/12/21 05:38 BP 103/50 12/12/21 05:15 Pulse Ox 93 12/12/21 05:15 O2 Del Method 12/12/21 05:15 O2 Flow Rate 3 12/12/21 05:15 12/11/21 12/12/21 12/12/21 22:59 06:59 14:59 Intake Total 2750 / 2800 540 / 3340 Output Total 1999 / 1999 950 / 2950 Balance 750 / 800 -410 / 390 Physical Exam Narrative: Patient presents alert very somnolent with a good general appearance normal mood and affect. Normal coordination normal stability. Moderate tenderness around the incisional site with the incision appear to have some bloody discharge with Hemovac drain intact. No signs of erythema or drainage. No signs of infection. Patient denies any fevers or chills. 4/5 motor strength both lower extremities with negative straight leg raise bilaterally. Calves are supple no medial thigh tenderness. Pulses are 2+ at the dorsalis pedis and posterior tibial region. Good capillary refill throughout normal sensation light touch both lower extremities. Urinary Catheter Management: Fair: Cath Placed During This Visit: yes Reason for Continuing Indwelling Catheter: Perioperative Use in Selected Surgeries Urinary Catheter Date of Insertion: 12/11/21 Urinary Catheter Time of Insertion: 11:00 Data : 12/12/21 01:57 12/05/21 09:58 A&P Assessment and plan (1) Acute blood loss as cause of postoperative anemia: Physical therapy to evaluate and mobilize. Encourage incentive spirometry for pulmonary toilet. We will have social services counselor evaluate for possible home health care or placement. (2) S/P spinal fusion: Attestations Medical Necessity Statement*: New labs today to evaluate acute blood loss anemia and obtain better pain control. Coding Level of Care Code Acute Window Air Conditioner Installer for Joyce Romero Diagnoses Acute blood loss as cause of postoperative anemia D62 S/P spinal fusion Z98.1
[2021-12-12 08:15] LABS: Hematocrit 27.5 % (37.0-47.0); Hemoglobin 8.7 g/dL (11.5-15.3)
[2021-12-12] MEDS: TRAMadol 50 mg Tablet PO ×2 (08:17→15:15)
[2021-12-12] MEDS: ondansetron 2 mg/ML SDV 2 mL 4 MG IVP (08:18)
[2021-12-12] MEDS: ascorbic acid 500 mg Tablet 1000 MG PO (08:18)
[2021-12-12] MEDS: lactated ringers 1,000 ML 90 ML IV ×2 (08:18→20:05)
[2021-12-12] MEDS: docusate sodium 100 mg Capsule PO ×2 (08:19→20:07)
[2021-12-12] MEDS: lanolin oint 7 gm 1 APPLIC TOPICAL (15:14)
[2021-12-13] VITALS (12 sets, daily range): BP systolic 91–111; BP diastolic 50–73; PULSE 80–119; RESP 16–22; TEMP 36.5–37.3; O2SAT 78–95
[2021-12-13] MEDS: HYDROcodone-acetaminophen 5-325 mg Tablet PO ×2 (02:19→21:25)
[2021-12-13] MEDS: FUROsemide 40 mg Tablet PO (06:02)
[2021-12-13] MEDS: TRAMadol 50 mg Tablet PO (06:02)
--- NOTE | 2021-12-13 06:39 | PM.PN ---
Subjective Subjective: POD 2 Patient resting. Complains of lightheadedness and dizziness. She states the tramadol makes her itch. Denies any chest pain, shortness of breath, headaches. Vitals/I&O/Wt Last Vital Signs Temp 97.7 F 12/13/21 04:34 Pulse 80 12/13/21 04:34 Resp 22 H 12/13/21 04:34 BP 91/56 12/13/21 04:34 Pulse Ox 95 12/13/21 04:34 O2 Del Method 12/12/21 20:24 O2 Flow Rate 3 12/12/21 13:25 12/12/21 12/12/21 12/13/21 14:59 22:59 06:59 Intake Total 0 / 0 1050 / 1050 Output Total 175 / 175 Balance 0 / 0 1050 / 1050 -175 / 875 Physical Exam Narrative: Patient presents alert and oriented x3 with a good general appearance normal mood and affect. Normal coordination normal stability. Mild tenderness around the incisional site with the incision appear clean and dry. Hemovac intact. No signs of erythema or drainage. No signs of infection. Patient denies any fevers or chills. 4/5 motor strength both lower extremities with negative straight leg raise bilaterally. Calves are supple no medial thigh tenderness. Pulses are 2+ at the dorsalis pedis and posterior tibial region. Good capillary refill throughout normal sensation light touch both lower extremities. Urinary Catheter Management: Fair: Cath Placed During This Visit: yes, but has since been removed by the nurse Reason for Continuing Indwelling Catheter: Decision to DC Catheter Urinary Catheter Date of Insertion: 12/11/21 Urinary Catheter Time of Insertion: 11:00 Date Urinary Catheter Removed: 12/12/21 Time Urinary Catheter Discontinued: 16:00 Data : 12/12/21 08:00 12/05/21 09:58 A&P Assessment and plan (1) Acute blood loss as cause of postoperative anemia: Patient is symptomatic complaining of lightheadedness and dizziness with increased heart rate blood pressures in the 90s. She denies any chest pain we will type and cross and transfuse 1 unit of packed red blood cells. Ordered H&H following got transfusion. We will also get a basic metabolic panel. Physical therapy continue to mobilize. oil well services dispatcher to evaluate for placement. Continue incentive spirometry for pulmonary toilet. Discontinue Hemovac drain. Patient states the tramadol makes her itch we will switch to hydrocodone fives 1 every 4-6 hours as needed pain (2) S/P spinal fusion: Attestations Medical Necessity Statement*: Transfuse today continue to mobilize with physical therapy once medically stable possibly home tomorrow. Coding Level of Care Code Acute Senior Stock Plan Administrator for Joyce Romero Diagnoses Acute blood loss as cause of postoperative anemia D62 S/P spinal fusion Z98.1
[2021-12-13 07:41] LABS: Anion Gap 12.8 (5-19); Blood Urea Nitrogen 12 mg/dL (8-23); Calcium 8.3 mg/dL (8.5-10.5); Carbon Dioxide 26 mmol/L (22-29); Chloride 104 mmol/L (98-107); Glucose 118 mg/dL (65-115); Osmolality Calculated 289 mOsm/kg (285-295); Potassium 3.8 mmol/L (3.5-5.1); Sodium 139 mmol/L (136-145)
[2021-12-13] MEDS: lactated ringers 1,000 ML 90 ML IV (07:50)
[2021-12-13] MEDS: docusate sodium 100 mg Capsule PO ×2 (09:49→18:42)
[2021-12-13] MEDS: ascorbic acid 500 mg Tablet 1000 MG PO (09:49)
--- NOTE | 2021-12-13 10:20 | PC.NURSE ---
dr amaro nurse dale barnard notified of non formulary home medication that the pt didnt get today ...dale is sending him a message reguarding this
--- NOTE | 2021-12-13 10:28 | PC.CHAP ---
Pastoral Care Encounter/Spiritual Assessment Type of Contact [] Declined layer out visit [] Patient/Family/Request visit [] Outpatient visit [] Follow-up visit [] Physician referral [] Code/Alert [x] Routine visit [] Staff referral [] Actively dying [] Patient sleeping [] Family support [] [] Out of room [] Palliative care [] [x] Receiving care in room [] Pre-surgical visit [] Trauma [] Long length of stay [] ICU visit [] Other: Relational/Emotional Strength [] Patient feels connected with others/family/visitors/staff [] Distress [] Loneliness/isolation [] Abandonment Spirituality of Patient [] Person of [place] [] Attends Restorationism of their [place] [] Believes in Prayer [] Reads Bible or Gnosticist materials [] There are Spiritual issues to be addressed Communication And Outreach Manager Interventions [x] Prayer [] Active listening [] Non-anxious presence [] Spiritual/emotional support [] Crisis/trauma care [] Spiritual counseling [] Bereavement support [] Provided bereavement packet [] Provided Bible/devotional materials [] Provided toy/stuffed animal, coloring book to patient or family member [] Provided Communion [] Anointing/[place] [] Salvation [] Completed spiritual assessment [] Other: Impact on Illness or Injury [] Angry [] Fearful [] Anxious [] Often cries [] Exhaustion [] Unable to work [] Unable to attend shinto [] Unable to walk/stand [] Unable to read [] Unable to drive [] Unable to eat/drink [] Unable to sleep [] Unable to be with family [] Patient intubated [] Other: Summary Time spent with patient
[2021-12-13 20:07] LABS: Hematocrit 28.1 % (37.0-47.0); Hemoglobin 9.4 g/dL (11.5-15.3)
[2021-12-14] VITALS (7 sets, daily range): BP systolic 98–113; BP diastolic 49–69; PULSE 82–91; RESP 15–18; TEMP 36.6–37.1; O2SAT 92–95
[2021-12-14] MEDS: lactated ringers 1,000 ML 90 ML IV ×2 (02:56→15:00)
[2021-12-14] MEDS: HYDROcodone-acetaminophen 5-325 mg Tablet PO ×4 (03:02→20:39)
[2021-12-14] MEDS: FUROsemide 40 mg Tablet PO (06:00)
--- NOTE | 2021-12-14 06:59 | P.PN_ITS ---
Subjective Subjective: POD 3 Patient more alert and smiling this morning. Back pain is improving. She is moving gas. Denies any shortness of breath, chest pain, headaches. Vitals/I&O/Wt Last Vital Signs Temp 97.8 F 12/14/21 04:52 Pulse 83 12/14/21 04:52 Resp 15 12/14/21 04:52 BP 113/69 12/14/21 04:52 Pulse Ox 94 12/14/21 04:52 O2 Del Method 12/14/21 04:52 O2 Flow Rate 1 12/14/21 04:52 12/13/21 12/13/21 12/14/21 14:59 22:59 06:59 Intake Total 1000 / 1000 1470 / 2470 Output Total 100 / 100 1300 / 1400 100 / 1500 Balance 900 / 900 170 / 1070 -100 / 970 Physical Exam Narrative: Patient presents alert and oriented x3 with a good general appearance normal mood and affect. Normal coordination normal stability. Moderate tenderness around the incisional site with the incision appear to be clean and dry. Extensive bruising to the thoracic region, no signs of i nfection. Patient denies any fevers or chills. 4/5 motor strength both lower extremities with negative straight leg raise bilaterally. Calves are supple no medial thigh tenderness. Pulses are 1+ at the dorsalis pedis and posterior tibial region. Good capillary refill throughout normal sensation light touch both lower extremities. Urinary Catheter Management: Fair: Cath Placed During This Visit: yes, but has since been removed by the nurse Reason for Continuing Indwelling Catheter: Decision to DC Catheter Urinary Catheter Date of Insertion: 12/11/21 Urinary Catheter Time of Insertion: 11:00 Date Urinary Catheter Removed: 12/12/21 Time Urinary Catheter Discontinued: 16:00 Data : 12/13/21 19:30 12/13/21 07:05 A&P Assessment and plan (1) S/P spinal fusion: Continue physical therapy to work on mobilizing in the halls. Discussed with the nurse for laxative of choice to help with bowel movements. Continue incentive spirometry for pulmonary toilet. Discussed at length with the nurse and the patient regarding placement and will have social media job titles evaluate. Concerned that she will need a [place] [facility] facility for more rehab prior to discharge home. She is ready for discharge at this point pending placement. We will see her back in the office in 1 week's time for a wound check. (2) Acute blood loss as cause of postoperative anemia: Attestations Medical Necessity Statement*: Ready for discharge when placement found Coding Level of Care Code Acute Bellhop Service Captain for Chg Fwd Diagnoses S/P spinal fusion Z98.1 Acute blood loss as cause of postoperative anemia D62
[2021-12-14] MEDS: ascorbic acid 500 mg Tablet 1000 MG PO (09:46)
[2021-12-14] MEDS: docusate sodium 100 mg Capsule PO ×2 (09:47→18:05)
--- NOTE | 2021-12-14 11:53 | PC.SOCIAL ---
IMM Update pg 2 of IMM updated and reviewed w/ patient. Copy provided and copy dated, initialed and placed in chart.
[2021-12-15] MEDS: lactated ringers 1,000 ML 90 ML IV (00:14)
[2021-12-15] MEDS: HYDROcodone-acetaminophen 5-325 mg Tablet PO ×3 (01:02→09:53)
[2021-12-15 03:53] VITALS: BP 111/61; PULSE 86; RESP 17; TEMP 37; O2SAT 93
[2021-12-15] MEDS: FUROsemide 40 mg Tablet PO (05:39)
--- NOTE | 2021-12-15 06:45 | PM.PN ---
Subjective Subjective: Patient states she has been getting better every day. She feels really better this morning as did yesterday. She is still struggling to get out of bed herself. She would like to stay in the hospital or go to custodial however the custodial not available. We will see how she does with physical therapy today but hopefully get her discharged this afternoon. Vitals/I&O/Wt Last Vital Signs Temp 98.6 F 12/15/21 03:53 Pulse 86 12/15/21 03:53 Resp 17 12/15/21 03:53 BP 111/61 12/15/21 03:53 Pulse Ox 93 12/15/21 03:53 O2 Del Method 12/15/21 03:53 O2 Flow Rate 1 12/14/21 04:52 12/14/21 12/14/21 12/15/21 14:59 22:59 06:59 Intake Total 1350 / 1350 150 / 1500 831 / 2331 Output Total 150 / 150 Balance 1350 / 1350 150 / 1500 681 / 2181 Physical Exam Narrative: Resting in bed comfortably moving all extremities. Urinary Catheter Management: Fair: Cath Placed During This Visit: yes, but has since been removed by the nurse Reason for Continuing Indwelling Catheter: Decision to DC Catheter Urinary Catheter Date of Insertion: 12/11/21 Urinary Catheter Time of Insertion: 11:00 Date Urinary Catheter Removed: 12/12/21 Time Urinary Catheter Discontinued: 16:00 Data : 12/13/21 19:30 12/13/21 07:05 A&P Assessment and plan (1) S/P spinal fusion: Patient is status post lumbar spine fusion. Would like to get working physical therapy today and hopefully get her discharged today. Attestations Medical Necessity Statement*: pain control Coding Level of Care Code Acute Eggs Inspector for Blug Fwd Diagnoses S/P spinal fusion Z98.1
--- NOTE | 2021-12-15 06:47 | PM.DCS ---
Discharge Providers Date of Admission: 12/11/21 15:50 Date of Discharge: December 15, 2021 Attending Provider at Admission: Enio Bojorquez DO Attending Provider at Discharge: Enio Bojorquez DO Primary Care Provider: Pato Coelho MD Diagnoses at Discharge Discharge Diagnosis (1) S/P spinal fusion: Status: Acute Reason for Visit Reason for Visit: PSF/DECOMPRESSION/PLIF Hospital Course Hospital Course uneventful Physical Exam Urinary Catheter Management: Fair: Cath Placed During This Visit: yes, but has since been removed by the nurse Reason for Continuing Indwelling Catheter: Decision to DC Catheter Urinary Catheter Date of Insertion: 12/11/21 Urinary Catheter Time of Insertion: 11:00 Date Urinary Catheter Removed: 12/12/21 Time Urinary Catheter Discontinued: 16:00 Discharge Data Studies Completed and Pending Completed Studies During Hospitalization Category Date Time Status XR lumbar spine 1V 32211 Routine Exams 12/11/21 16:30 Completed Pending at discharge Category Date Time Status Leukocyte Reduced RBC Routine Lab 12/13/21 09:00 Results Type and Screen Routine Lab 12/13/21 09:00 Results Radiology Impressions Lumbar Spine X-Ray 12/11/21 16:30 IMPRESSION: Images obtained for intraoperative purposes. Laboratory Results Hgb 9.4 g/dL (11.5-15.3) L 12/13/21 19:30 Hct 28.1 % (37.0-47.0) L 12/13/21 19:30 Sodium 139 mmol/L (136-145) 12/13/21 07:05 Potassium 3.8 mmol/L (3.5-5.1) 12/13/21 07:05 Chloride 104 mmol/L (98-107) 12/13/21 07:05 Carbon Dioxide 26 mmol/L (22-29) 12/13/21 07:05 Anion Gap 12.8 (5-19) 12/13/21 07:05 BUN 12 mg/dL (8-23) 12/13/21 07:05 Creatinine 0.6 mg/dL (0.5-0.9) 12/13/21 07:05 GFR Calculation Not Reportable 12/13/21 07:05 Glucose 118 mg/dL (65-115) H 12/13/21 07:05 Calculated Osmolality 289 mOsm/kg (285-295) 12/13/21 07:05 Calcium 8.3 mg/dL (8.5-10.5) L 12/13/21 07:05 Blood Type O Positive 12/13/21 09:00 Rho(D) Type Positive 12/13/21 09:00 Antibody Screen Negative 12/13/21 09:00 Crossmatch See Detail 12/13/21 09:00 Vitals Last Vital Signs Temp 98.6 F 12/15/21 03:53 Pulse 86 12/15/21 03:53 Resp 17 12/15/21 03:53 BP 111/61 12/15/21 03:53 Pulse Ox 93 12/15/21 03:53 O2 Del Method 12/15/21 03:53 O2 Flow Rate 1 12/14/21 04:52 Discharge Plan Discharge Patient Disposition: Home Condition: Stable Prescriptions: New hydrocodone-acetaminophen 5-325 mg tablet 1 - 2 tab PO .Q4-6H Qty: 40 0RF Continued furosemide 40 mg tablet 40 mg PO QAM diclofenac potassium 25 mg capsule 25 mg PO BID ascorbic acid (vitamin C) 500 mg capsule 1,000 mg PO DAILY cinnamon bark [Cinnamon] 500 mg capsule 500 mg PO DAILY potassium chloride 20 mEq tablet extended release 20 meq PO DAILY Complete Multivitamin Tablet 1 tab PO DAILY vitamin B complex [B Complex-Vitamin B12] Tablet 1 tab PO DAILY calcium carbonate [Calcium 500] 500 mg calcium (1,250 mg) tablet 500 mg PO DAILY biotin 5 mg capsule 5 mg PO DAILY tramadol 50 mg tablet 50 mg PO QID PRN (Reason: pain) 15 Days Qty: 90 0RF magnesium 500 mg Tablet 500 mg PO DAILY Discharge Orders: Discharge Order (Routine); Ordered 12/15/21 Ordered By: Enio Bojorquez Other Ambulatory Orders: DME: [facility] (Order) Location: None Selected Ordered By: Enio Bojorquez Discharge Diet: Advance as tolerated Discharge Activity: Limit activity as instructed Patient Instructions: Opioid Safety Activity Restrictions/Additional Instructions: Thank you for [facility] for your care! The following is a list of instructions, from your provider, to follow upon your discharge to ensure you have the optimal recovery from your recent injury orsurgery. Follow-up care is a nesbitt part of your treatment and safety. Be sure to make and go to all appointments, and call your doctor if you are having problems. If you do not already have a follow-up appointment made, call Dr. Bojorquez office in the next 1-3 days to make follow up appointment for 1 weeks at [phone]. It is also a good idea to know your test results and keep a list of the medicines you take. Medications will be prescribed for you at your provider's discretion. These medications are to be used as instructed; if they are taken more often that prescribed they will not be refilled early and in most cases will not be refilled at all. > When a refill is needed,you should contact annel lacey 2-3 business days before your prescription runs out. Medications will NOT be refilled by regional climate change analyst providers after hours! > Many pain medications contain Tylenol (Acetaminophen). Do not consume more than 4,000 mg of Tylenol per day in total with any combination ofmedications. > Pain medications can cause constipation. Please use an over the counter stool softener as directed, while taking pain medications. Consulty our local pharmacist with questions or recommendations on stool softeners. If constipation persists, contact our office or your primary care provider. > While under our care,you are not to receive pain medications or other controlled substances from any other provider unless our office is notified and approves. Any attempts to do so will result in refusal to prescribe any further pain medications and possible dismissal from our practice. ? ? Showering is permitted, however we ask that you do not take a bath, sit in a whirlpool / Jacuzzi, or go swimming for 1 month. For only the first 2 days after surgery, lt wilt be necessary for you to cover your wound/dressing with plastic and tape to keep it dry. ? Walking is essential for the healing process after surgery. We would like you to slowly advance your walking. This should be done on relatively flat clear ground (inside or out) or can be done on a treadmill. Remember this goal does not have to happen all at once, slowly increase your distance and duration. This can be broken into more more than one walk per day as tolerated. Patients who walk as directed after surgery rarely require Physical Therapy. In the unlikely event this issue arises your provider will direct hospital staff to make the appropriate arrangements. ? No lifting over 5 pounds {a gallon of milk) or bending/twisting until further notice. Each of these activities places an unnecessary amount of stress onto the body and can impede the delicate healing process. > Instead of bending at the waist, keep your back straight and bend at the knees. > Instead of twisting your torso, keep your back straight and turn your entire body with your feet. ? You may sleep in any position which makes you comfortable. Many patients find comfort sleeping in a reclining chair. It is not abnormal to have difficulty sleeping for the first several weeks following your surgery. We recommend trying Benadry! or Tylenol PM as directed to help with your sleeping difficulties. Both medications are over the counter and available withoutprescription. ? NO SMOKING!!! Smoking dramatically increases the probability of developing postoperative wound infections. ? Common complaints after lumbar and/or thoracic spine surgery include, but are not limited to: numbness and/or tingling in the legs, pain around the incision and surrounding tissues, muscle spasms, or stiffness of the middle to low back. Contact our office if these symptoms persist or if an acute change occurs. ? No driving for the first 3-5days, and not while taking narcotics [] until seen at your follow-up appointment and cleared. There are no restrictions for riding on short trips, however if you take a longer trip, arrangements should be made to make regular stops to get out of the vehicle and stretch . ? Swelling is an unfortunate event that will take place with any surgery and is the primary source of your postoperative discomfort. While walking and regular approved activities helps control inflammation, there are additional steps you can take to minimizeswelling. > Place ice over the surgical site and surrounding tissue for twenty minutes, followed by applying a low/medium heat (heating pad) for an additional twenty minutes every 1-2 hours as needed for painrelief. > You may use of over the counter anti-inflammatory medications (Ibuprofen, Motrin, Aleve, Advil, etc) as directed on the package label. These types of medicines wm significantly reduce the amount of discomfort you experience after surgery from swelling. It should be noted that if you have and allergy to any of these medications, or a history of ulcers or kidney disease you should consult you primary care provider prior to starting these medications. Discharge Attestations Time Spent in Discharge Care*: less than 30 min Quality Metrics Clinical Quality Measures [ No reported AMI, CVA or VTE this stay] Coding Level of Care Code Acute Chg FW DC note Diagnoses S/P spinal fusion Z98.1
[2021-12-15 08:00] VITALS: BP 132/67; PULSE 73; RESP 16; TEMP 36.4; O2SAT 93
[2021-12-15 08:04] VITALS: BP 111/61; PULSE 86; RESP 17; TEMP 37; O2SAT 93
[2021-12-15] MEDS: ascorbic acid 500 mg Tablet 1000 MG PO (09:16)
[2021-12-15] MEDS: docusate sodium 100 mg Capsule PO (09:16)
[2021-12-15 10:02] VITALS: BP 111/61; PULSE 86; RESP 17; TEMP 37; O2SAT 93
== END 2021-12-15 11:25 | disposition home health service (06) | DRG 457 ==
LOC: MEDSURG 15:50
PROVIDERS: Physician Assistant; Admitting Provider Orthopaedic Surgery; PCP Family Medicine; Visit Provider Orthopaedic Surgery
PROC: 0RG7071 Fusion of 2 to 7 Thoracic Vertebral Joints with Autologous Tissue Substitute, Posterior Approach, Posterior Column, Open Approach (ICD-10-PCS; principal; 2021-12-11 09:50)
PROC: 0RG7071 Fusion of 2 to 7 Thoracic Vertebral Joints with Autologous Tissue Substitute, Posterior Approach, Posterior Column, Open Approach (ICD-10-PCS; CPT 22612; 2021-12-11 09:50)
PROC: 0RG7071 Fusion of 2 to 7 Thoracic Vertebral Joints with Autologous Tissue Substitute, Posterior Approach, Posterior Column, Open Approach (ICD-10-PCS; CPT 63005; 2021-12-11 09:50)
DX: M43.16 Spondylolisthesis, lumbar region (principal); D62 Acute posthemorrhagic anemia; M48.062 Spinal stenosis, lumbar region with neurogenic claudication; Z98.1 Arthrodesis status; Z87.440 Personal history of urinary (tract) infections; Z85.828 Personal history of other malignant neoplasm of skin; Z87.891 Personal history of nicotine dependence; Z79.891 Long term (current) use of opiate analgesic
CPT/HCPCS: 36415; 36430; 51702; 72020; 76000; 80048; 85014; 85018; 86850; 86900; 86920; 97116; 97161; 97530; C1713; C1762; J1100; J1170; J1200; J1644; J2270; J2370; J2405; J2704; J3010; J3370; J3490; J7030; P9016; P9040; P9041

== ENCOUNTER → 2021-12-21 14:28 | Outpatient (BNVA) | payer MEDICARE, OTHER, SELFPAY | PROVIDERS: PCP Family Medicine; Visit Provider Orthopaedic Surgery | DX: Z98.1 Arthrodesis status (principal); Z47.89 Encounter for other orthopedic aftercare | CPT/HCPCS: 99024 ==

== ENCOUNTER → 2021-12-26 08:56 | Outpatient (BNVA) | payer MEDICARE, OTHER, SELFPAY | PROVIDERS: PCP Family Medicine; Visit Provider Orthopaedic Surgery | DX: Z47.89 Encounter for other orthopedic aftercare (principal); Z98.1 Arthrodesis status | CPT/HCPCS: 99024 ==

== ENCOUNTER → 2022-01-09 15:33 | Outpatient (BNVA) | payer MEDICARE, OTHER, SELFPAY | PROVIDERS: PCP Family Medicine; Visit Provider Physician Assistant | DX: Z98.1 Arthrodesis status (principal); Z47.89 Encounter for other orthopedic aftercare | CPT/HCPCS: 72100; 99024 ==

== ENCOUNTER → 2022-01-23 10:35 | Outpatient (BNVA) | payer MEDICARE, OTHER, SELFPAY | PROVIDERS: PCP Family Medicine; Visit Provider Orthopaedic Surgery | DX: Z47.89 Encounter for other orthopedic aftercare (principal); Z98.1 Arthrodesis status | CPT/HCPCS: 72100; 99024 ==

== ENCOUNTER → 2022-03-06 11:13 | Outpatient (BNVA) | payer MEDICARE, SELFPAY | PROVIDERS: PCP Family Medicine; Visit Provider Orthopaedic Surgery | DX: Z47.89 Encounter for other orthopedic aftercare (principal); Z98.1 Arthrodesis status | CPT/HCPCS: 72100; 99024 ==

== ENCOUNTER 2022-03-06 16:03 | Outpatient (RCR) | payer MEDICARE, SELFPAY | END 2022-03-27 23:59 | disposition home or self-care (01) | LOC: SPT 16:03 | PROVIDERS: PCP Family Medicine; Visit Provider Orthopaedic Surgery | DX: Z98.1 Arthrodesis status (principal) | CPT/HCPCS: 97110; 97161 ==

== ENCOUNTER → 2022-03-28 13:03 | Outpatient (BNVA) | payer MEDICARE, SELFPAY | PROVIDERS: PCP Family Medicine; Visit Provider Specialist | DX: M25.551 Pain in right hip (principal); Z96.651 Presence of right artificial knee joint; T84.84XA Pain due to internal orthopedic prosthetic devices, implants and grafts, initial encounter; M25.561 Pain in right knee; Y79.2 Prosthetic and other implants, materials and accessory orthopedic devices associated with adverse incidents | CPT/HCPCS: 73502; 73560; 73565 ==

== ENCOUNTER 2022-03-29 10:41 | Outpatient (RCR) | payer MEDICARE, SELFPAY | END 2022-04-14 23:59 | disposition home or self-care (01) | LOC: SPT 10:41 | PROVIDERS: PCP Family Medicine; Visit Provider Orthopaedic Surgery | DX: Z98.1 Arthrodesis status (principal) | CPT/HCPCS: 97110; 99205 ==

== ENCOUNTER → 2022-04-10 15:23 | Outpatient (BNVA) | payer MEDICARE, OTHER, SELFPAY | PROVIDERS: PCP Family Medicine; Visit Provider Orthopaedic Surgery | DX: T84.84XD Pain due to internal orthopedic prosthetic devices, implants and grafts, subsequent encounter (principal); X58.XXXD Exposure to other specified factors, subsequent encounter; Z98.1 Arthrodesis status | CPT/HCPCS: 72100; 99214 ==

== ENCOUNTER 2022-04-27 08:00 | Outpatient (CLI) | payer MEDICARE, OTHER, SELFPAY ==
--- NOTE | 2022-04-27 08:16 | NM_ITS ---
WS: [id number] THREE-PHASE BONE SCAN HISTORY: history of right knee replacement, RIGHT knee pain. COMPARISON: Radiograph 03/28/2022 Patient is is injected with 24.7 mCi Tc99m HDP intravenously. Immediate angiographic phase imaging is performed over the area of concern. Static blood pool imaging also performed. Two-hour whole-body sc intigrams performed in anterior and posterior projections. Additional large field of view imaging sub mitted as necessary. Status post RIGHT total knee replacement. Angiographic and static blood pool phases are normal. There is no increased uptake involving the RIGHT knee surrounding the prosthesis. There is a small am ount of increased uptake in the lateral compartment of the LEFT knee. Radiographically there is degen erative joint disease with bone upon bone. Moderate increased uptake in one of the midthoracic vertebral bodies, probably T8. No prior radiograp hs. This may be due to osteoporotic compression fracture. No history of malignancy. There is mild add itional moderate uptake within the AC joints, wrist and elbow joints and mid tarsal articulations. Bi lateral SI joint uptake. Normal soft tissue uptake. Activity is noted within the kidneys. NM/NM bone 3 phase 40372 IMPRESSION: 1. Normal bone scan imaging RIGHT knee status post arthroplasty. No evidence f or infection or loosening. 2. LEFT knee lateral compartment osteoarthritic changes. 3. Moderate increased uptake in one of the midthoracic vertebral bodies, proba dougie T8. With no history of prior malignancy this may represent an osteoporotic fracture. This can be further evaluated by thoracic spine radiographs.
== END 2022-04-27 08:01 | disposition home or self-care (01) ==
PROVIDERS: PCP Family Medicine; Visit Provider Specialist
DX: M25.561 Pain in right knee (principal); M17.12 Unilateral primary osteoarthritis, left knee
CPT/HCPCS: 78315; A9561

== ENCOUNTER 2022-05-04 09:07 | Inpatient (IN) | payer MEDICARE, OTHER, SELFPAY ==
[2022-05-01 13:41] VITALS: BMI 29.2
--- NOTE | 2022-05-01 13:58 | P.ANESASSM_ITS ---
Pre-Anesthetic Assessment Height/Weight: Height 1.65 m Weight 79.832 kg Preop Diagnosis: Painful lumbar hardware Operation Date: 05/04/22 12:00 Proposed Procedures p Hardware Removal Lumbar Iliac: 44191, T84.84XA(Not Applicable) - Enio Bojorquez, Familial anesthetic complications: None Social No alcohol and No tobacco Exam alert, oriented x 3, clear to auscultation bilaterally and regular rate & rhythm Airway Mallampati: Class I Dentition: other (missing) Pulmonary None reported CV/HEM None reported None reported Hepatic None reported GI None reported Metabolic None reported Musc/skel Lower Back Pain Neuropsych None reported Anesthetic Plan ASA status: 2 Anesthesia: General Risk of > 500 ml blood loss (7ml/kg in children): No Medications/Allergies Home Medications Medication Instructions Recorded Confirmed Last Taken Type ascorbic acid (vitamin C) 500 mg 1,000 mg PO DAILY 02/26/19 05/01/22 12/10/21 History capsule calcium carbonate 500 mg calcium 500 mg PO DAILY 02/11/20 05/01/22 05/01/22 History (1,250 mg) tablet (Calcium 500) cinnamon bark 500 mg capsule 500 mg PO DAILY 02/11/20 05/01/22 12/10/21 History (Cinnamon) multivitamin,ai-ymey-hzqkdvdv 1 tab PO DAILY 02/11/20 05/01/22 05/01/22 History (Complete Multivitamin tablet) vitamin B complex (B 1 tab PO DAILY 02/11/20 05/01/22 05/01/22 History Complex-Vitamin B12 tablet) biotin 5 mg capsule 5 mg PO DAILY 04/03/21 05/01/22 05/01/22 History magnesium 500 mg tablet 500 mg PO DAILY 12/11/21 05/01/22 05/01/22 History cyclobenzaprine 10 mg tablet 10 mg PO TID PRN muscle spasm #60 12/21/21 05/01/22 Unknown Rx tabs amoxicillin 875 mg-potassium See Rx Instructions .Route 01/17/22 05/01/22 Unknown Rx clavulanate 125 mg tablet .COMPLEX #60 tabs tramadol 50 mg tablet 50 mg PO QID PRN pain 15 days #90 01/23/22 05/01/22 05/01/22 Rx tabs furosemide 40 mg tablet See Rx Instructions .Route 0105/01/22 05/01/22 Rx .COMPLEX #90 tabs potassium chloride 20 mEq See Rx Instructions .Route 03/27/22 05/01/22 05/01/22 Rx tablet,extended release(part/cryst) .COMPLEX #270 tabs Allergies Allergy/AdvReac Type Severity Reaction Status Date / Time ketorolac [From Toradol] Allergy Unknown Unknown Verified 04/10/22 15:28 oxycodone [From Percocet] Allergy Unknown Unknown Verified 04/10/22 15:28 PENDING SALE TO [facility] Anesthesia Medical History Recurrent UTI Squamous cell carcinoma of right lower leg Surgical History H/O esophagogastroduodenoscopy (01/13/20) H/O knee surgery H/O right knee surgery History of hysterectomy for indication other than cancer S/P foot surgery, left Status post colonoscopy Status post laparoscopic cholecystectomy Family History Mother , AT AGE 91 Stroke Father , at age 87 No problems noted. Social History Smoking and tobacco status: former smoker Second hand smoke exposure: No Alcohol intake: never Lives independently: Yes Household members: spouse Marital status: Current occupational status: retired History of recent travel: No Data Anesthesia Cardiac Studies: No Data to Display
[2022-05-01 14:23] LABS: Blood Urea Nitrogen 19 mg/dL (8-23); Calcium 9.7 mg/dL (8.5-10.5); Carbon Dioxide 33 mmol/L (22-29); Chloride 98 mmol/L (98-107); Glucose 115 mg/dL (65-115); Osmolality Calculated 289 mOsm/kg (285-295); Sodium 138 mmol/L (136-145)
[2022-05-04] VITALS (9 sets, daily range): BP systolic 107–161; BP diastolic 50–79; PULSE 73–97; RESP 10–18; TEMP 36.1–36.8; O2SAT 94–100
--- NOTE | 2022-05-04 | XR_ITS ---
WS: [id number] Lumbar spine, C-arm fluoroscopy, 05/04/2022 Clinical Data: BELLA PICS Comparison: Lumbar spine, 04/10/2022 Findings: Dr. Bojorquez adjusted the articulation of the connecting kacey and attachment of one of the orthopedic scr ews fusing the SI joint. XR/XR lumbar spine 1V 33803 Impression: Posterior lumbosacral fusion.
--- NOTE | 2022-05-04 09:24 | ECG_ITS ---
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 Measurements Intervals Bronson Rate: 66 P: 30 OH: 188 QRS: 5 QRSD: 104 T: 31 QT: 390 QTc: 412 Interpretive Statements SINUS RHYTHM Compared to ECG 12/05/2021 10:08:45 No significant changes Electronically Signed On 05-04-2022 15:18:06 PATIENT BILLER by Vazquez Walter M.D. [email or web address] Hoopslawrence county hospitalHeliKo Aviation Servicesupper valley medical center.[id number]
--- NOTE | 2022-05-04 09:37 | P.ANESUD_ITS ---
Pre-Anesthetic Update Pre-Anesthetic Assessment: Date of Surgery/Procedure: 05/04/22 Preop Soraya gnosis: Painful lumbar hardware Proposed Procedure: Operation Date: 05/04/22 10:15 Proposed Procedures p Hardware Removal Lumbar Iliac: 20620, T84.84XAMETAL CUTTING TRINIDAD NEEDED(Not Applicable) - Enio H Maryellen, DO Changes from Pre-Anesthetic Assessment: Increased lower extremity swelling since Saturday from knees to feet, no SOB, chest pain, dizziness. Already took an extra lasix Last Intake: Intake Last Liquid Date 05/03/22 Last Liquid Time 22:00 Last Solid Date 05/03/22 Last Solid Time 22:00 Vitals: Temperature 98.3 F 05/04/22 09:07 Temperature Source Temporal Artery S can 05/04/22 09:07 Pulse Rate 81 05/04/22 09:07 Pulse Rhythm 05/04/22 09:10 Respiratory Rate 18 05/04/22 09:07 Blood Pressure 131/67 05/04/22 09:07 Blood Pressure Ginger n 88 05/04/22 09:07 Pulse Oximetry 95 05/04/22 09:07 Oxygen Delivery Me thod 05/04/22 09:10 Exam: Pre-Anes Outpt Exam: alert, oriented x 3, clear to auscultation bilaterally and regular rate & rhythm Additional Exam Findings (including area of procedure): fine rales Cardiac Studies: No Data to Display
[2022-05-04] MEDS: sodium chloride 0.9% 1,000 ML 30 ML IV (09:57)
--- NOTE | 2022-05-04 10:21 | W.PM.OPSUD ---
Surgery/Procedure H&P Update DATE OF PROCEDURE: May 04, 2022 DATE H&P PERFORMED: 04/10/22 H&P UPDATE INFORMATION: I have reviewed H&P completed within last 30 days, I have examined patient prior to procedure and No changes to prior documentation PREOP DIAGNOSIS: Painful lumbar hardware PLANNED PROCEDURE: Operation Date: 05/04/22 10:15 Proposed Procedures p Hardware Removal Lumbar Iliac: 37792, T84.84XAMETAL CUTTING TRINIDAD NEEDED(Not Applicable) - Enio Bojorquez DO
[2022-05-04] MEDS: ceFAZolin 2,000 MG in sodium chloride 0.9% (plus) 50 ML 100 MG IV (10:23)
[2022-05-04] MEDS: lidocaine-epi 1% 20 mL INJ INJECTION (10:53)
[2022-05-04] MEDS: vancomycin 1,000 MG SDV 1000 MG XX (11:17)
--- NOTE | 2022-05-04 11:40 | P.OP_ITS ---
Operative Report Date of procedure: May 04, 2022 Pre-op diagnosis: Preop Diagnosis Painful lumbar hardware Post-op diagnosis: same Procedure done: Removal of deep hardware from spine. Surgeon: Enio Bojorquez Keypunch Operators Supervisor: Dileep Amato Estimated blood loss (mL): 25 Procedure: Removal of deep hardware from spine Patient is brought the operative suite after undergoing anesthesia was placed in prone position. All areas impingement well-padded. Patient was prepped and draped normal sterile fashion. Skin incision made over the distal part of the incision that was previously there. Wiltsie type approach was made through the soft tissue. The right iliac screw was identified as well as the isai above it. Retractors were made the The Screw Was Removed. The Metal Cutting Bur Was Used To Cut off the Isai between the S1 and the Iliac Screw. The Screw Was Then Backed out. Wounds Were Irrigated and Then the Attention Was Then Brought to the Left Screw Again Ability to Approach Was Used through the Soft Tissue Screw Was Identified the Was Then Removed from the Screw the Isai Was Cut with a Metal Cutting Bur and Then the Screw Was Backed out. Wounds Were Irrigated and Then the Wound Was Closed in Layered Fashion with Vicryl and Monocryl. Sterile Dressings Were Applied and Patient Was Transferred to the PACU in Stable Condition.
--- NOTE | 2022-05-04 12:27 | ANE.PACU2 ---
Inpatient post-anesthesia follow up: Airway intact: Yes Vital signs: Temperature 97.3 F Pulse Rate 77 Respiratory Rate 18 Blood Pressure 126/50 Pulse Oximetry 94 Oxygen Delivery Me thod Room Air Oxygen Flow Rate 6 Fraction of Inspir ed Oxygen Hydration adequate: Yes Nausea and vomiting: No Pain level: 1 Mental status: Baseline
[2022-05-04] MEDS: HYDROcodone-acetaminophen 5-325 mg Tablet 1 TAB PO (12:42)
[2022-05-04] MEDS: cetylpyridinium Lozenge 1 EACH MUCOUS MEM (12:58)
== END 2022-05-04 13:55 | disposition home or self-care (01) | DRG 497 ==
LOC: OR 12:12 → MS 2A 13:50
PROVIDERS: Anesthesiology; Admitting Provider Orthopaedic Surgery; PCP Family Medicine; Visit Provider Orthopaedic Surgery
PROC: 0QP204Z Removal of Internal Fixation Device from Right Pelvic Bone, Open Approach (ICD-10-PCS; principal; 2022-05-04 10:05)
DX: T84.84XA Pain due to internal orthopedic prosthetic devices, implants and grafts, initial encounter (principal); Y79.3 Surgical instruments, materials and orthopedic devices (including sutures) associated with adverse incidents; Z98.1 Arthrodesis status; Z79.891 Long term (current) use of opiate analgesic; Z87.891 Personal history of nicotine dependence; Z85.118 Personal history of other malignant neoplasm of bronchus and lung
CPT/HCPCS: 36415; 72020; 76000; 80048; 93005; J0690; J1100; J2370; J2405; J2704; J2710; J3010; J3370; J3490; J7030

== ENCOUNTER → 2022-05-15 14:59 | Outpatient (BNVA) | payer MEDICARE, OTHER, SELFPAY | PROVIDERS: PCP Family Medicine; Visit Provider Orthopaedic Surgery | DX: Z47.89 Encounter for other orthopedic aftercare (principal); Z98.1 Arthrodesis status | CPT/HCPCS: 99024 ==

== ENCOUNTER → 2022-06-05 13:51 | Outpatient (BNVA) | payer MEDICARE, SELFPAY | PROVIDERS: PCP Family Medicine; Visit Provider Orthopaedic Surgery | DX: M47.814 Spondylosis without myelopathy or radiculopathy, thoracic region (principal); M47.816 Spondylosis without myelopathy or radiculopathy, lumbar region | CPT/HCPCS: 72100; 99024 ==

== ENCOUNTER → 2022-07-26 10:37 | Outpatient (BNVA) | payer MEDICARE, OTHER, SELFPAY | PROVIDERS: PCP Family Medicine; Visit Provider Orthopaedic Surgery | DX: Z47.89 Encounter for other orthopedic aftercare (principal); Z98.1 Arthrodesis status | CPT/HCPCS: 72100; 99024 ==

== ENCOUNTER → 2022-09-18 12:55 | Outpatient (BNVA) | payer MEDICARE, OTHER, SELFPAY | PROVIDERS: PCP Family Medicine; Visit Provider Clinical Nurse Specialist Adult Health | DX: N39.0 Urinary tract infection, site not specified (principal); R39.89 Other symptoms and signs involving the genitourinary system; N81.11 Cystocele, midline | CPT/HCPCS: 81003; 87077; 87086; 87184 ==

== ENCOUNTER → 2022-09-25 12:39 | Outpatient (BNVA) | payer MEDICARE, OTHER, SELFPAY | PROVIDERS: PCP Family Medicine; Visit Provider Family Medicine | DX: E87.6 Hypokalemia (principal); M47.816 Spondylosis without myelopathy or radiculopathy, lumbar region; M47.24 Other spondylosis with radiculopathy, thoracic region | CPT/HCPCS: 80048 ==

== ENCOUNTER → 2022-10-17 10:36 | Outpatient (BNVA) | payer MEDICARE, OTHER, SELFPAY | PROVIDERS: PCP Family Medicine; Visit Provider Family Medicine | DX: N39.0 Urinary tract infection, site not specified (principal) | CPT/HCPCS: 81000; 87086 ==

== ENCOUNTER → 2022-10-30 10:48 | Outpatient (BNVA) | payer MEDICARE, OTHER, SELFPAY | PROVIDERS: PCP Family Medicine; Visit Provider Orthopaedic Surgery | DX: Z98.1 Arthrodesis status (principal); Z47.89 Encounter for other orthopedic aftercare | CPT/HCPCS: 99214 ==

== ENCOUNTER 2022-11-13 16:08 | Inpatient (IN) | payer MEDICARE, SELFPAY ==
--- NOTE | 2022-11-13 16:11 | XRR_ITS ---
PROCEDURE INFORMATION: Exam: XR Right Hip Exam date and time: 11/13/2022 4:16 PM Age: 77 years old Clinical indication: Hip pain; Right hip; Additional info: Right hip pain post fall TECHNIQUE: Imaging protocol: Radiologic exam of the right hip. Views: 1 view hip with pelvis when performed. COMPARISON: CR XR hip RT 2-3V wo/w pel* [id number] 03/28/2022 1:26 PM FINDINGS: Bones/joints: Right hip intertrochanteric oblique minimally displaced fracture. Lumbar spine surgical hardware seen. Soft tissues: Unremarkable. XR/XR hip RT 2-3V wo/w pel* [id number] IMPRESSION: 1. Right hip intertrochanteric oblique minimally displaced fracture. 2. Lumbar spine surgical hardware seen.
--- NOTE | 2022-11-13 16:11 | XRR_ITS ---
PROCEDURE INFORMATION: Exam: XR Chest Exam date and time: 11/13/2022 4:15 PM Age: 77 years old Clinical indication: Injury or trauma; Injury date: 11/13/2022; Injury details: Cough; Post fall TECHNIQUE: Imaging protocol: Radiologic exam of the chest. Views: 1 view. COMPARISON: CR XR chest 1V [id number] 07/11/2016 6:57 PM FINDINGS: Lungs: See Heart/Mediastinum finding. Pleural spaces: Unremarkable. No pleural effusion. No pneumothorax. Heart/Mediastinum: Large hiatal hernia. Cardiomegaly and mild pulmonary vascular congestion. Bones/joints: Unremarkable. XR/XR chest 1V portable [id number] IMPRESSION: 1. Large hiatal hernia. 2. Cardiomegaly and mild pulmonary vascular congestion.
[2022-11-13 16:16] VITALS: BP 166/78; PULSE 97; RESP 18; TEMP 36.8; O2SAT 91; BMI 28.3
--- NOTE | 2022-11-13 16:26 | W.ED.FALL ---
HPI - Fall General: Chief Complaint: Fall Stated Complaint: Fall Time Seen by Provider: 11/13/22 16:09 Source: patient and EMS Mode of arrival: EMS Limitations: no limitations History of Present Illness: 77-year-old female states she tripped and fell on a ground-level fall landed on her right side. States laying on her right hip she had pain in that hip since the fall she has not been able ambulate. Patient received fentanyl in route and her pain is since resolved but is worse if she tries to move. Denies any other injuries denies hitting her head denies any loss consciousness. Associated symptoms-after fall: Denies abdominal pain, chest pain, headache(s) or neck pain Review of Systems Const: Denies: fever(s) or chills ENMT: Denies: throat pain or dental pain Card: Denies: chest pain Resp: Denies: dyspnea GI: Denies: abdominal pain, nausea, vomiting or diarrhea Musc: Reports: extremity pain; Denies: neck pain or back pain Skin/Breast: Denies: rash Neuro: Denies: headache(s) PFSH ED PFSH: Medical History Recurrent UTI Squamous cell carcinoma of right lower leg Urinary incontinence Surgical History H/O esophagogastroduodenoscopy (01/13/20) H/O knee surgery H/O right knee surgery History of hysterectomy for indication other than cancer History of shoulder surgery Hx of bladder repair surgery bladder tied S/P foot surgery, left Status post colonoscopy Status post laparoscopic cholecystectomy Family History Mother , AT AGE 91 Stroke Father , at age 87 No problems noted. Social History Smoking and tobacco status: former smoker Second hand smoke exposure: No Alcohol intake: never Substance/Drug Use: never Lives independently: Yes Household members: spouse Marital status: Current occupational status: retired Physical Exam Const: COMMON NORMALS: no acute distress and patient oriented x3 HENMT: COMMON NORMALS: normocephalic and atraumatic HEAD & SCALP: normocephalic and atraumatic Eye: COMMON NORMALS: conjunctivae normal CONJUNCTIVA: Yes conjunctivae normal Neck/C-Spine: COMMON NORMALS: supple CERVICAL SPINE: No pain with cervical ROM and No Cervical spine tenderness Chest: COMMONS NORMALS: normal inspection of the chest Resp: COMMON NORMALS: normal respiratory effort Cardio: COMMON NORMALS: regular rate and regular rhythm RATE: regular rate RHYTHM: regular rhythm Back/Pelvis: OTHER: p Extremity: NARRATIVE EXTREMITY EXAM: Tenderness over right hip Neuro: COMMON NORMALS: patient oriented x3 Psych: COMMON NORMALS: mental status grossly normal Skin: COMMON NORMALS: no rashes or lesions noted GENERAL SKIN EXAM: no rashes or lesions noted Course Vital Signs: Vital signs: Vital Signs Temperature 98.2 F 11/13/22 16:16 Pulse Rate 97 11/13/22 16:16 Respiratory Rate 18 11/13/22 16:16 Blood Pressure 166/78 11/13/22 16:16 Pulse Oximetry 91 11/13/22 16:16 Oxygen Delivery Me thod Room Air 11/13/22 16:16 MDM - Fall Medical Decision Making Patient presents with a right hip fracture from a fall spoke to orthopedist along with hospitalist will admit at this time. Medical Records I reviewed the patient's medical records. 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
--- NOTE | 2022-11-13 16:27 | ECG_ITS ---
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 Measurements Intervals [place] Rate: 75 P: 53 NE: 187 QRS: 21 QRSD: 89 T: 50 QT: 363 QTc: 407 Interpretive Statements SINUS RHYTHM WITH SINUS ARRHYTHMIA Compared to ECG 05/04/2022 09:46:01 No significant changes Electronically Signed On 11-13-2022 16:34:42 CDT by Sandor Kumar M.D. [id number]
--- NOTE | 2022-11-13 16:43 | PM.HP ---
Providers/Chief Complaint Primary Care Provider: Pato Coelho MD Chief Complaint: Fall History of Present Illness Josephine Ellis is a 77 year old female with no significant past medical history other than recurrent UTIs, presented to the ER today after tripping over a chair and falling. Post fall she complained of pain on the right side of her hip so presented to the ER. In the ER patient was found to have a greater trochanteric fracture of the right hip hence hospitalist service was consulted. No blood work so far available though CBC CMP and INR has been ordered. Patient otherwise denies any nausea, vomiting, headache, dizziness, runny nose, chest pain. Previous surgical procedure was spinal fusion and removal of deep hardware which was complicated by acute blood loss anemia. On examination patient laying in antalgic position denies any chest pain with saturation of around low 80s to low 90s on room air. Patient herself denies any difficulty in breathing. Review of Systems General: Reports: 10 or more systems reviewed and unremarkable except in HPI and below Const: Denies: fever(s), chills, body aches, change in appetite, change in weight, malaise, night sweats, diaphoresis, change in sleep pattern, daytime sleepiness or snoring Eyes: Denies: change in vision, blurry vision, photophobia, eye discomfort or eye discharge ENMT: Denies: throat pain, enlarged tonsils, hoarseness, mouth pain, oral sores, dry mouth, tinnitus, nasal congestion or post nasal drip Card: Denies: chest pain, palpitations, irregular heart rhythm, edema, swelling of feet/ankles, lightheadedness, syncope, pre-syncope, dyspnea on exertion, orthopnea, leg pain with exertion or acrocyanosis Resp: Denies: dyspnea, productive cough, non-productive cough, wheezing, stridor, pain on inspiration, change in phlegm color, hemoptysis or chest congestion GI: Denies: abdominal pain, nausea, vomiting, hematemesis, coffee ground emesis, dysphagia, heartburn, diarrhea, constipation, bloating, GI cramping, change in bowel habits, pain on defecation, hematochezia or melena : Denies: flank pain, dysuria, urinary frequency, urinary urgency, urinary hesitancy, nocturia or hematuria Musc: Denies: neck pain, back pain, extremity pain, joint pain, joint swelling, joint redness, joint stiffness or limited range of motion Neuro: Denies: headache(s), numbness in extremities, weakness in extremities, sensory changes, lack of coordination, difficulty walking, frequent falls, dizziness, vertigo, confusion, Slurred speech present, difficulty communicating thoughts or seizure-like activity Psych: Denies: anxiety, depression, mood swings, panic attacks, hopelessness or irritability Endo: Denies: polyuria, polydipsia, tired all the time, cold intolerance, excessive sweating, flushing or heat intolerance Hemant/Lymph: Denies: easy bruising or easy bleeding All/Imm: Denies: tongue swelling, facial swelling or acute wheezing Medications/Allergies Home Medications Medication Instructions Recorded Confirmed Last Taken Type ascorbic acid (vitamin C) 500 mg 1,000 mg PO DAILY 02/26/19 10/30/22 05/03/22 History capsule calcium carbonate 500 mg calcium 500 mg PO DAILY 02/11/20 10/30/22 05/03/22 History (1,250 mg) tablet (Calcium 500) cinnamon bark 500 mg capsule 500 mg PO DAILY 02/11/20 10/30/22 04/25/22 History (Cinnamon) multivitamin,cf-[id number]-[id number] 1 tab PO DAILY 02/11/20 10/30/22 05/03/22 History (Complete Multivitamin tablet) vitamin B complex (B 1 tab PO DAILY 02/11/20 10/30/22 05/03/22 History Complex-Vitamin B12 tablet) biotin 5 mg capsule 5 mg PO DAILY 04/03/21 10/30/22 05/03/22 History magnesium 500 mg tablet 500 mg PO DAILY 12/11/21 10/30/22 05/03/22 History furosemide 40 mg tablet See Rx Instructions .Route 03/27/22 10/30/22 05/03/22 Rx .COMPLEX #90 tabs potassium chloride 20 mEq See Rx Instructions .Route 03/27/22 10/30/22 05/03/22 Rx tablet,extended release(part/cryst) .COMPLEX #270 tabs TLSO Brace #1 ea 06/05/22 10/30/22 Unknown Rx hydrocodone 5 mg-acetaminophen 325 1 tab PO BID PRN pain 1 month #60 09/25/22 10/30/22 Unknown Rx mg tablet tabs nitrofurantoin 100 mg PO Q12H 10 days #20 caps 10/05/22 10/30/22 Unknown Rx monohydrate/macrocrystals 100 mg capsule (Macrobid) ciprofloxacin HCl 250 mg tablet 250 mg PO BID #20 tabs 10/17/22 10/30/22 Unknown Rx Allergies Allergy/AdvReac Type Severity Reaction Status Date / Time ketorolac [From Toradol] Allergy Unknown Unknown Verified 11/13/22 16:26 oxycodone [From Percocet] Allergy Unknown Unknown Verified 11/13/22 16:26 PFSH Acute PFSH: Medical History (Updated 11/13/22 @ 16:58 by Sidney Smith MD) Acute blood loss as cause of postoperative anemia Dysphagia Lumbar stenosis with neurogenic claudication Painful orthopaedic hardware Recurrent UTI Squamous cell carcinoma of right lower leg Thoracic radiculopathy due to osteoarthritis of spine Urinary incontinence Surgical History (Updated 11/13/22 @ 16:44 by Sidney Smith MD) H/O esophagogastroduodenoscopy (01/13/20) H/O knee surgery H/O right knee surgery History of hysterectomy for indication other than cancer History of shoulder surgery History of total right knee replacement Hx of bladder repair surgery bladder tied S/P foot surgery, left S/P spinal fusion Status post colonoscopy Status post laparoscopic cholecystectomy Family History Mother , AT AGE 91 Stroke Father , at age 87 No problems noted. Social History Smoking and tobacco status: former smoker Second hand smoke exposure: No Alcohol intake: never Substance/Drug Use: never Lives independently: Yes Household members: spouse Marital status: Current occupational status: retired Vitals/I&O/Wt Last Vital Signs Temp 98.2 F 11/13/22 16:16 Pulse 97 11/13/22 16:16 Resp 18 11/13/22 16:16 BP 166/78 11/13/22 16:16 Pulse Ox 91 11/13/22 16:16 O2 Del Method Room Air 11/13/22 16:16 Weight last 48 hrs Weight 77.111 kg Physical Exam Narrative: General: No acute distress, AO x3 HEENT: PERRLA, pupils bilaterally equal and reactive Chest: Normal vesicular breath sounds, no added sounds, equal good air entry bilaterally CVS: S1-S2 regular, no murmurs, no tachycardia, no gallops, no rubs Abdomen: Soft, nontender, no organomegaly, bowel sounds present Neuro: No focal deficits, no facial deformity, AO x3, power 5/5 in all limbs A&P Assessment and plan (1) Closed fracture of right hip: Mechanical fall. Orthopedics has been consulted from the ER. Plan for ORIF. N.p.o. after midnight. Monitor hemoglobin. PT postoperatively, perioperative antibiotics as per orthopedic team. SCD for DVT prophylaxis hold off on medical prophylaxis given need for OR. Morphine 2 mg every 4 hourly as needed for pain along with home dose of [place] twice daily as needed for pain. Qualifiers: Encounter type: initial encounter Qualified Code(s): S72.001A - Fracture of unspecified part of neck of right femur, initial encounter for closed fracture (2) Hypoxia: Most likely in setting of pain as patient is slightly tachycardic as well. EKG appreciated. Patient denies any chest pain. Check D-dimer. X-ray negative for any consolidation. Oxygen supplementation keeping saturation over 90%. Plan Further treatment plan as per CBC, CMP and INR ordered in the ER which are still awaited. Full code Regular diet, n.p.o. after midnight SCDs for DVT prophylaxis Famotidine for PUD prophylaxis Discharge plan: Plan to discharge home with home health versus SNF depending on PT evaluation postoperatively. Attestations Medical Necessity Statement*: Admission: 2 midnights for management of right hip fracture Diagnoses Closed fracture of right hip S72.001A Encounter type: initial encounter Hypoxia R09.02
[2022-11-13 16:57] VITALS: BP 132/64; PULSE 74; RESP 18; O2SAT 98
[2022-11-13 17:01] LABS: Basophils # 0.1 10^3/uL (0.0-0.1); Basophils % 0.7 %; Eosinophils # 0.2 10^3/uL (0.0-0.8); Hematocrit 35.7 % (36-47); Lymphocytes # 1.1 10^3/uL (0.8-4.8); Lymphocytes % 7.6 %; Mean Corpuscular HGB Conc 31.1 g/dL (30-55); Mean Corpuscular Hemoglobin 30.3 pg (27-33); Mean Corpuscular Volume 97.5 fl (85-98); Mean Platelet Volume 8.9 fL (7.4-10.4); Monocytes # 0.7 10^3/uL (0.2-0.9); Monocytes % 4.6 %; Neutrophils # 12.51 10^3/uL (1.8-7.7); Neutrophils % 85.1 %; Nucleated Red Blood Cells % 0 %; Platelet Count 292 10^3/cmm (157-399); Red Blood Count 3.66 10^6/uL (3.85-5.65); Red Cell Distribution Width 13.8 % (12.1-15.1)
[2022-11-13 17:07] VITALS: RESP 18; O2SAT 99
[2022-11-13] MEDS: morphine 4 mg/mL SDV 1 mL IVP (17:07)
[2022-11-13 17:13] LABS: INR 1.06 (0.8-1.2)
[2022-11-13 17:24] LABS: Alanine Aminotransferase 12 U/L (0-33); Albumin Level 3.7 g/dL (3.5-5.2); Alkaline Phosphatase 130 U/L (35-105); Anion Gap 14.3 (5-19); Aspartate Amino Transferase 23 U/L (0-32); Blood Urea Nitrogen 15 mg/dL (8-23); Calcium 9.2 mg/dL (8.5-10.5); Carbon Dioxide 30 mmol/L (22-29); Chloride 101 mmol/L (98-107); Creatinine Clr Calc Pharmacy 62.3907; Globulin 3.7 g/dL (1.3-4.6); Glucose 98 mg/dL (65-115); Osmolality Calculated 293 mOsm/kg (285-295); Potassium 4.3 mmol/L (3.5-5.1); Sodium 141 mmol/L (136-145); Total Bilirubin 0.3 mg/dL (0.15-1.2); Total Protein 7.4 g/dL (6.6-8.7)
[2022-11-13 17:30] LABS: D Dimer >= 20.00 ug/mLFEU (0-0.59); Procalcitonin 0.04 ng/mL (0-0.5)
[2022-11-13] MEDS: cefTRIAXone 1,000 MG in sodium chloride 0.9% (plus) 50 ML 100 MG IV (17:44)
[2022-11-13 18:02] LABS: Thyroid Stimulating Hormone 2.55 uIU/mL (0.27-4.20); Vitamin B12 486 pg/mL (232-1245)
[2022-11-13 18:17] VITALS: BP 167/82; PULSE 74; RESP 18; O2SAT 92
[2022-11-13 19:02] LABS: Add Urine Culture? No; Add Urine Microscopic? YES; Bacteria Urine TRACE /hpf; Bilirubin Urine Neg (Negative); Blood Urine 3+ (Negative); Glucose Urine UA Norm (Normal); Ketones Urine Negative (Negative); Leukocyte Esterase Urine 2+ (Negative); Nitrate Urine Negative (Negative); Protein Urine Neg (Negative); RBC Urine 0-4 /hpf (0-2); Specific Gravity, Urine 1.005 (1.005-1.030); Squamous Epithelial Cell Urine 15-25 /hpf (0-5); Urine Appearance Hazy (CLEAR); Urine Color Yellow (Yellow); Urobilinogen Urine Norm (Negative); pH Urine 5 (5-7)
[2022-11-13 19:11] VITALS: BP 167/82; PULSE 74; RESP 18; TEMP 36.8; O2SAT 92
[2022-11-13 21:26] VITALS: BP 129/61; PULSE 85; RESP 16; TEMP 36.7; O2SAT 92
[2022-11-13] MEDS: sodium chloride 0.9% 1,000 ML 75 ML IV (21:40)
[2022-11-13] MEDS: famotidine 20 mg Tablet PO (21:40)
[2022-11-13] MEDS: HYDROcodone-acetaminophen 5-325 mg Tablet 1 TAB PO (21:40)
[2022-11-14] VITALS (19 sets, daily range): BP systolic 104–140; BP diastolic 47–82; PULSE 81–100; RESP 14–22; TEMP 36.6–38.4; O2SAT 83–99
--- NOTE | 2022-11-14 | XR_ITS ---
WS: [id number] XR hip RT 1V wo/w pel [id number] REASON FOR EXAM: OR PICS FINDINGS: Short intramedullary kacey and large femoral nail fixation of intertrochanteric fracture. Fracture fragments are in good position and alignment. Surgical appliances are intact and in proper position and alignment. IMPRESSION: Fixation of right hip fracture without abnormality as above.
[2022-11-14 04:51] LABS: Basophils # 0.1 10^3/uL (0.0-0.1); Basophils % 0.8 %; Eosinophils # 0.2 10^3/uL (0.0-0.8); Eosinophils % 3.1 %; Lymphocytes % 12.6 %; Mean Corpuscular HGB Conc 30.9 g/dL (30-55); Mean Corpuscular Hemoglobin 30.5 pg (27-33); Mean Corpuscular Volume 98.8 fl (85-98); Mean Platelet Volume 8.6 fL (7.4-10.4); Monocytes # 0.4 10^3/uL (0.2-0.9); Monocytes % 4.9 %; Neutrophils # 5.89 10^3/uL (1.8-7.7); Neutrophils % 78.2 %; Nucleated Red Blood Cells % 0 %; Platelet Count 231 10^3/cmm (157-399); Red Blood Count 3.44 10^6/uL (3.85-5.65); Red Cell Distribution Width 13.8 % (12.1-15.1); White Blood Count 7.53 10^3/uL (3.29-11.43)
[2022-11-14] MEDS: morphine 4 mg/mL SDV 1 mL 2 MG IVP ×4 (04:51→20:46)
[2022-11-14 05:15] LABS: Chol HDL Ratio 2.54 mg/dL (0.0-4.40); Cholesterol 127 mg/dL (0-200); HDL Cholesterol 50 mg/dL (60-100); LDL Cholesterol Calculated 59 mg/dL (50-129); LDL HDL Ratio 1.18 RATIO (0.00-3.22); Triglycerides 90 mg/dL (0-150)
[2022-11-14 05:16] LABS: Estmated Average Glucose 108; Hemoglobin A1C 5.4 % (4.0-6.0)
[2022-11-14 05:26] LABS: Alanine Aminotransferase 9 U/L (0-33); Albumin Level 3.2 g/dL (3.5-5.2); Alkaline Phosphatase 107 U/L (35-105); Anion Gap 10.1 (5-19); Aspartate Amino Transferase 18 U/L (0-32); Blood Urea Nitrogen 12 mg/dL (8-23); Calcium 8.8 mg/dL (8.5-10.5); Carbon Dioxide 29 mmol/L (22-29); Chloride 105 mmol/L (98-107); Creatinine Clr Calc Pharmacy 62.3907; Globulin 3.1 g/dL (1.3-4.6); Glucose 96 mg/dL (65-115); Magnesium 1.8 mg/dL (1.7-2.3); Osmolality Calculated 290 mOsm/kg (285-295); Phosphorus 3.5 mg/dL (2.5-4.5); Potassium 4.1 mmol/L (3.5-5.1); Sodium 140 mmol/L (136-145); Total Bilirubin 0.4 mg/dL (0.15-1.2); Total Protein 6.3 g/dL (6.6-8.7)
[2022-11-14 05:32] LABS: Folate Level < 20.0 ng/mL (4.8-37.3)
[2022-11-14] MEDS: sodium chloride 0.9% 1,000 ML 75 ML IV ×2 (09:40→19:22)
[2022-11-14] MEDS: acetaminophen 325 mg Tablet 650 MG PO (09:46)
[2022-11-14 10:45] LABS: Adenovirus Not Detected (NOT DETECT); Chlamydia Pneumoniae Not Detected (NOT DETECT); Coronavirus 229E,HKU1,NL63,OC4 Not Detected (NOT DETECT); Human Metapneumovirus Not Detected (NOT DETECT); Human Rhinovirus/Enterovirus Not Detected (NOT DETECT); Influenza A Not Detected (NOT DETECT); Influenza A H1 Not Detected (NOT DETECT); Influenza A H1-2009 Not Detected (NOT DETECT); Influenza A H3 Not Detected (NOT DETECT); Influenza B Not Detected (NOT DETECT); Mycoplasma Pneumoniae Not Detected (NOT DETECT); Parainfluenza Virus Type 1 Not Detected (NOT DETECT); Parainfluenza Virus Type 2 Not Detected (NOT DETECT); Parainfluenza Virus Type 3 Not Detected (NOT DETECT); Parainfluenza Virus Type 4 Not Detected (NOT DETECT); Respiratory Syncytial Virus A Not Detected (NOT DETECT); Respiratory Syncytial Virus B Not Detected (NOT DETECT); SARS-COV-2 Not Detected (NOT DETECT)
--- NOTE | 2022-11-14 10:47 | PC.CHAP ---
Pastoral Care Encounter/Spiritual Assessment Type of Contact [] Declined laborer high density press visit [] Patient/Family/Request visit [] Outpatient visit [] Follow-up visit [] Physician referral [] Code/Alert [x] Routine visit [] Staff referral [] Actively dying [] Patient sleeping [x] Family support [] [] Out of room [] Palliative care [] [] Receiving care in room [] Pre-surgical visit [] Trauma [] Long length of stay [] ICU visit [] Other: Relational/Emotional Strength [x] Patient feels connected with others/family/visitors/staff [] Distress [] Loneliness/isolation [] Abandonment Spirituality of Patient [] Person of [place] [] Attends Rastafari of their [place] [x] Believes in Prayer [] Reads Bible or Congregational materials [] There are Spiritual issues to be addressed Decorator Inspector Interventions [x] Prayer [x] Active listening [] Non-anxious presence [] Spiritual/emotional support [] Crisis/trauma care [] Spiritual counseling [] Bereavement support [] Provided bereavement packet [] Provided Bible/devotional materials [] Provided toy/stuffed animal, coloring book to patient or family member [] Provided Communion [] Anointing/[place] [] Salvation [] Completed spiritual assessment [] Other: Impact on Illness or Injury [] Angry [] Fearful [] Anxious [] Often cries [] Exhaustion [] Unable to work [] Unable to attend anabaptism [] Unable to walk/stand [] Unable to read [] Unable to drive [] Unable to eat/drink [] Unable to sleep [] Unable to be with family [] Patient intubated [] Other: Summary Time spent with patient 10 min
--- NOTE | 2022-11-14 12:34 | PM.CONSULT ---
Providers/Reason For Consult Consulting Physician/Specialty*: Isabell Umanzor MD Reason for Consult*: Right intertrochanteric hip fracture Requesting Physician: Dr. Agnes Boyle Attending Physician: Sidney Smith MD Primary Care Provider: Pato Coelho MD History of Present Illness History of Present Illness Josephine Ellis is a 77 year old female who is known to me through my prior treatment of her . The patient presented through the emergency department yesterday with history of a fall at home. Reportedly, she tripped over a chair and fell onto her right side. She was unable to ambulate and had significant pain on the right side, so she presented to the emergency department. Upon evaluation there, she was found to have a right intertrochanteric hip fracture. The patient has previously had spinal fusion. My review of the x-rays demonstrates an intertrochanteric hip fracture with minimal displacement. Review of Systems General: Reports: 10 or more systems reviewed and unremarkable except in HPI and below Const: Denies: fever(s), chills, body aches, change in appetite, change in weight, malaise, night sweats, diaphoresis, change in sleep pattern, daytime sleepiness or snoring Eyes: Denies: change in vision, blurry vision, photophobia, eye discomfort or eye discharge ENMT: Denies: throat pain, enlarged tonsils, hoarseness, mouth pain, oral sores, dental pain, dry mouth, tinnitus, nasal congestion or post nasal drip Card: Denies: chest pain, palpitations, irregular heart rhythm, edema, swelling of feet/ankles, lightheadedness, syncope, pre-syncope, dyspnea on exertion, orthopnea, leg pain with exertion or acrocyanosis Resp: Denies: dyspnea, productive cough, non-productive cough, wheezing, stridor, pain on inspiration, change in phlegm color, hemoptysis or chest congestion GI: Denies: abdominal pain, nausea, vomiting, hematemesis, coffee ground emesis, dysphagia, heartburn, diarrhea, constipation, bloating, GI cramping, change in bowel habits, pain on defecation, hematochezia or melena : Denies: flank pain, dysuria, urinary frequency, urinary urgency, urinary hesitancy, nocturia or hematuria Musc: Denies: neck pain, back pain, extremity pain, joint pain, joint swelling, joint redness, joint stiffness or limited range of motion Skin/Breast: Denies: rash Neuro: Denies: headache(s), numbness in extremities, weakness in extremities, sensory changes, lack of coordination, difficulty walking, frequent falls, dizziness, vertigo, confusion, Slurred speech present, difficulty communicating thoughts or seizure-like activity Psych: Denies: anxiety, depression, mood swings, panic attacks, hopelessness or irritability Endo: Denies: polyuria, polydipsia, tired all the time, cold intolerance, excessive sweating, flushing or heat intolerance Hemant/Lymph: Denies: easy bruising or easy bleeding All/Imm: Denies: tongue swelling, facial swelling or acute wheezing Medications/Allergies Home Medications Medication Instructions Recorded Confirmed Last Taken Type ascorbic acid (vitamin C) 500 mg 1,000 mg PO DAILY 02/26/19 11/14/22 11/13/22 History capsule calcium carbonate 500 mg calcium 500 mg PO DAILY 02/11/20 11/14/22 11/13/22 History (1,250 mg) tablet (Calcium 500) cinnamon bark 500 mg capsule 500 mg PO DAILY 02/11/20 11/14/22 11/13/22 History (Cinnamon) multivitamin,wh-smmm-moiniyng 1 tab PO DAILY 02/11/20 11/14/22 11/13/22 History (Complete Multivitamin tablet) vitamin B complex (B 1 tab PO DAILY 02/11/20 11/14/22 11/13/22 History Complex-Vitamin B12 tablet) biotin 5 mg capsule 5 mg PO DAILY 04/03/21 11/14/22 11/13/22 History magnesium 500 mg tablet 500 mg PO DAILY 12/11/21 11/14/22 11/13/22 History TLSO Brace #1 ea 06/05/22 11/14/22 Unknown Rx hydrocodone 5 mg-acetaminophen 325 1 tab PO BID PRN pain 1 month #60 09/25/22 11/14/22 Unknown Rx mg tablet tabs furosemide 40 mg tablet 40 mg PO DAILY 11/14/22 11/14/22 11/13/22 History potassium chloride 20 mEq 60 meq PO DAILY 11/14/22 11/14/22 11/13/22 History tablet,extended release(part/cryst) Allergies Allergy/AdvReac Type Severity Reaction Status Date / Time ketorolac [From Toradol] Allergy Unknown Unknown Verified 11/13/22 16:26 oxycodone [From Percocet] Allergy Unknown Unknown Verified 11/13/22 16:26 Current Medications Generic Name Dose Route Start Last Admin Trade Name Freq PRN Reason Stop Dose Admin Acetaminophen 650 mg 11/13/22 21:26 11/14/22 09:46 Acetaminophen 325 Mg Tablet PO 650 mg Q6H PRN Administration Mild Pain Or Temp >/= 101 Hydrocodone Bitart/Acetaminophen 1 tab 11/13/22 21:26 11/13/22 21:40 Hydrocodone-Acetaminophen 5-325 Mg Tablet PO 1 tab BID PRN Administration moderate pain Famotidine 20 mg 11/13/22 21:26 11/14/22 07:42 Famotidine 20 Mg Tablet PO Not Given BID KARO Ceftriaxone Sodium 1,000 mg/ 50 mls @ 100 mls/hr 11/13/22 17:15 11/13/22 23:12 Sodium Chloride IV Infused Q24H KARO Infusion Protocol Sodium Chloride 1,000 mls @ 75 mls/hr 11/13/22 21:26 11/14/22 09:40 Sodium Chloride 0.9% IV 75 mls/hr .[id number] KARO Administration Morphine Sulfate 2 mg 11/13/22 21:26 11/14/22 09:40 Morphine 4 Mg/Ml Sdv 1 Ml IVP 2 mg Q4H PRN Administration SEVERE PAIN PFSH Acute PFSH: Medical History (Updated 11/14/22 @ 13:28 by Isabell Umanzor MD) Acute blood loss as cause of postoperative anemia Dysphagia Lumbar stenosis with neurogenic claudication Painful orthopaedic hardware Recurrent UTI Squamous cell carcinoma of right lower leg Thoracic radiculopathy due to osteoarthritis of spine Urinary incontinence Surgical History (Updated 11/13/22 @ 16:44 by Sidney Smith MD) H/O esophagogastroduodenoscopy (01/13/20) H/O knee surgery H/O right knee surgery History of hysterectomy for indication other than cancer History of shoulder surgery History of total right knee replacement Hx of bladder repair surgery bladder tied S/P foot surgery, left S/P spinal fusion Status post colonoscopy Status post laparoscopic cholecystectomy Family History Mother , AT AGE 91 Stroke Father , at age 87 No problems noted. Social History Smoking and tobacco status: former smoker Second hand smoke exposure: No Alcohol intake: never Substance/Drug Use: never Lives independently: Yes Household members: spouse Marital status: Current occupational status: retired Dietary Habits: Current diet type/program: regular Caffeine: Yes Caffeine intake frequency: coffee Exercise: What type of physical activity do you participate in?: walking Safety: Seatbelt use: always Drive intoxicated or ride with intoxicated hazardous materials driver?: never Home Safety: Working smoke detector in home: Yes Fire extinguisher in home: Yes Carbon monoxide detector in home: Yes Firearms in home: Yes Personal Safety: Do you feel safe at home: Yes Victim of physical abuse: No Victim of emotional abuse: No Victim of sexual abuse: No NHANES Social Connection/Isolation: Are you now , , , , never or living with a partner?: Social isolation score (0-1 are the most socially isolated patients): 1 Vitals/I&O/Wt Last Vital Signs Temp 99.2 F 11/14/22 11:38 Pulse 81 11/14/22 11:38 Resp 22 H 11/14/22 11:38 BP 108/51 11/14/22 11:38 Pulse Ox 91 11/14/22 11:38 O2 Del Method Room Air 11/14/22 11:38 FiO2 96 11/14/22 02:00 11/13/22 11/14/22 11/14/22 22:59 06:59 14:59 Intake Total 50 / 50 900 / 900 Balance 50 / 50 900 / 900 Weight last 48 hrs Weight 170 lb Physical Exam Const: COMMON NORMALS: no acute distress, average body habitus, patient oriented x3 and alert GENERAL APPEARANCE: cooperative and comfortable ORIENTATION/CONSCIOUSNESS: Yes awake HENMT: COMMON NORMALS: normocephalic and atraumatic HEAD & SCALP: normocephalic and atraumatic Eye: GENERAL EYE: appearance normal, both eyes and all related structures Chest: COMMONS NORMALS: normal inspection of the chest Resp: COMMON NORMALS: normal respiratory effort EFFORT & INSPECTION: Yes able to speak in complete sentences and Yes symmetric chest movement Extremity: RIGHT LOWER EXTREMITY: Yes hip joint (There is discomfort to any range of motion of the right lower extremity) Right hip: Yes inspection (No obvious deformity), Yes ROM (Not evaluated secondary to fracture), Yes neurovascular exam (Intact distally) and Yes other (No evidence of DVT) Neuro: COMMON NORMALS: patient oriented x3 SENSORIUM/ORIENTATION: Yes alert Psych: COMMON NORMALS: mental status grossly normal APPEARANCE: Yes grossly normal ATTITUDE: Yes calm and Yes engaged ATTENTION/CONCENTRATION: Yes attention grossly intact Skin: COMMON NORMALS: no rashes or lesions noted GENERAL SKIN EXAM: no rashes or lesions noted Urinary Catheter Management: Fair: Cath Placed During This Visit: yes Reason for Continuing Indwelling Catheter: Perioperative Use in Selected Surgeries Urinary Catheter Date of Insertion: 11/13/22 Urinary Catheter Time of Insertion: 18:19 Data 11/14/22 04:37 11/14/22 04:37 Xray Ortho: My impression: X-rays were obtained at the emergency department. These images demonstrate a minimally displaced intertrochanteric right hip fracture with no evidence of shortening. The AP pelvis view also demonstrates previous spine hardware. A&P Assessment and plan (1) Closed intertrochanteric fracture of right hip: Patient was seen and admitted through the emergency department as noted above. She was admitted to the hospitalist service for medical evaluation and optimization for open reduction internal fixation of her right intertrochanteric hip fracture. The patient is seen in the room with her family. She is advised of the plan for surgery, and she is educated as to the risks and complication of the surgical procedure. She wishes to proceed. At this time, we are planning open reduction internal fixation of a right intertrochanteric hip fracture with gamma nail. The patient will remain in the hospital at least another night following this for postoperative rehab. Consult Attestations Medical Necessity Statement: Treatment of acute right intertrochanteric hip fracture Coding Level of Care Code Acute Code for [facility] Diagnoses Closed intertrochanteric fracture of right hip S72.141A
[2022-11-14] MEDS: sodium chloride 0.9% 1,000 ML 30 ML IV (14:58)
[2022-11-14] MEDS: acetaminophen 1,000 MG/100 ML PIGGYBACK 400 MG IV (14:59)
[2022-11-14] MEDS: gabapentin 300 mg Capsule PO (15:00)
--- NOTE | 2022-11-14 15:11 | P.ANESASSM_ITS ---
Pre-Anesthetic Assessment Height/Weight: Height 1.65 m Weight 77.111 kg Temp Pulse Resp BP Pulse Ox O2 Del Method FiO2 99.2 F 81 18 108/51 91 Room Air 96 11/14/22 11:38 11/14/22 11:38 11/14/22 13:24 11/14/22 11:38 11/14/22 11:38 11/14/22 11:38 11/14/22 02:00 Operation Date: 11/14/22 15:30 Proposed Procedures p Open reduction internal fixation right intertrochanteric hip fracture(Right) - Isabell Umanzor MD Was Beta Michelle taken within 24 hours: N/A Was Clonidine taken within 24 hours: N/A Last intake: Intake Last Liquid Date 11/13/22 Last Liquid Time 08:00 Last Solid Date 11/13/22 Last Solid Time 17:00 Social No tobacco Exam alert, oriented x 3, clear to auscultation bilaterally and regular rate & rhythm Airway Submandibular: within normal limits Cervical ROM: within normal limits Mallampati: Class II History/ROS No significant history except as noted and No significant complaints Anesthetic Plan ASA status: 3 Anesthesia: General Risk of > 500 ml blood loss (7ml/kg in children): No Medications/Allergies Home Medications Medication Instructions Recorded Confirmed Last Taken Type ascorbic acid (vitamin C) 500 mg 1,000 mg PO DAILY 02/26/19 11/14/22 11/13/22 History capsule calcium carbonate 500 mg calcium 500 mg PO DAILY 02/11/20 11/14/22 11/13/22 History (1,250 mg) tablet (Calcium 500) cinnamon bark 500 mg capsule 500 mg PO DAILY 02/11/20 11/14/22 11/13/22 History (Cinnamon) multivitamin,[id number] 1 tab PO DAILY 02/11/20 11/14/22 11/13/22 History (Complete Multivitamin tablet) vitamin B complex (B 1 tab PO DAILY 02/11/20 11/14/22 11/13/22 History Complex-Vitamin B12 tablet) biotin 5 mg capsule 5 mg PO DAILY 04/03/21 11/14/22 11/13/22 History magnesium 500 mg tablet 500 mg PO DAILY 12/11/21 11/14/22 11/13/22 History TLSO Brace #1 ea 06/05/22 11/14/22 Unknown Rx hydrocodone 5 mg-acetaminophen 325 1 tab PO BID PRN pain 1 month #60 09/25/22 11/14/22 Unknown Rx mg tablet tabs furosemide 40 mg tablet 40 mg PO DAILY 11/14/22 11/14/22 11/13/22 History potassium chloride 20 mEq 60 meq PO DAILY 11/14/22 11/14/22 11/13/22 History tablet,extended release(part/cryst) Allergies Allergy/AdvReac Type Severity Reaction Status Date / Time ketorolac [From Toradol] Allergy Unknown Unknown Verified 11/13/22 16:26 oxycodone [From Percocet] Allergy Unknown Unknown Verified 11/13/22 16:26 Current Medications Generic Name Dose Route Start Last Admin Trade Name Freq PRN Reason Stop Dose Admin Acetaminophen 650 mg 11/13/22 21:26 11/14/22 09:46 Acetaminophen 325 Mg Tablet PO 650 mg Q6H PRN Administration Mild Pain Or Temp >/= 101 Hydrocodone Bitart/Acetaminophen 1 tab 11/13/22 21:26 11/13/22 21:40 Hydrocodone-Acetaminophen 5-325 Mg Tablet PO 1 tab BID PRN Administration moderate pain Famotidine 20 mg 11/13/22 21:26 11/14/22 07:42 Famotidine 20 Mg Tablet PO Not Given BID KARO Ceftriaxone Sodium 1,000 mg/ 50 mls @ 100 mls/hr 11/13/22 17:15 11/13/22 23:12 Sodium Chloride IV Infused Q24H KARO Infusion Protocol Sodium Chloride 1,000 mls @ 75 mls/hr 11/13/22 21:26 11/14/22 09:40 Sodium Chloride 0.9% IV 75 mls/hr .[id number] KARO Administration Sodium Chloride 1,000 mls @ 30 mls/hr 11/14/22 15:00 11/14/22 14:58 Sodium Chloride 0.9% IV 11/15/22 14:59 30 mls/hr .Q24H KARO Administration Morphine Sulfate 2 mg 11/13/22 21:26 11/14/22 13:24 Morphine 4 Mg/Ml Sdv 1 Ml IVP 2 mg Q4H PRN Administration SEVERE PAIN PFSH Anesthesia Medical History (Updated 11/14/22 @ 13:28 by Isabell Umanzor MD) Acute blood loss as cause of postoperative anemia Dysphagia Lumbar stenosis with neurogenic claudication Painful orthopaedic hardware Recurrent UTI Squamous cell carcinoma of right lower leg Thoracic radiculopathy due to osteoarthritis of spine Urinary incontinence Surgical History (Updated 11/13/22 @ 16:44 by Sidney Smith MD) H/O esophagogastroduodenoscopy (01/13/20) H/O knee surgery H/O right knee surgery History of hysterectomy for indication other than cancer History of shoulder surgery History of total right knee replacement Hx of bladder repair surgery bladder tied S/P foot surgery, left S/P spinal fusion Status post colonoscopy Status post laparoscopic cholecystectomy Family History Mother , AT AGE 91 Stroke Father , at age 87 No problems noted. Social History Smoking and tobacco status: former smoker Second hand smoke exposure: No Alcohol intake: never Substance/Drug Use: never Lives independently: Yes Household members: spouse Marital status: Current occupational status: retired Data Anesthesia 11/14/22 04:37 11/14/22 04:37 Short CBC 11/13/22 11/14/22 Range/Units 16:54 04:37 WBC 14.70 H 7.53 (3.29-11.43) 10^3/uL Hgb 11.10 L 10.50 L (11.27-16.99) g/dL Hct 35.7 L 34.0 L (36-47) % MCV 97.5 98.8 H (85-98) fl Plt Count 292 231 (157-399) 10^3/cmm Neut % (Auto) 85.1 78.2 % Neut # (Auto) 12.51 H 5.89 (1.8-7.7) 10^3/uL BMP 11/13/22 11/14/22 16:54 04:37 Sodium 141 140 Potassium 4.3 4.1 Chloride 101 105 Carbon Dioxide 30 H 29 BUN 15 12 Creatinine 0.7 0.6 Glucose 98 96 Calcium 9.2 8.8 Liver Function 11/13/22 11/14/22 Range/Units 16:54 04:37 Total Bilirubin 0.3 0.4 (0.15-1.2) mg/dL AST 23 18 (0-32) U/L ALT 12 9 (0-33) U/L Alkaline Phosphatase 130 H 107 H (35-105) U/L Albumin 3.7 3.2 L (3.5-5.2) g/dL Urine 11/13/22 Range/Units 18:40 Urine Color Yellow (Yellow) Urine Appearance Hazy A (CLEAR) Urine pH 5 (5-7) Ur Specific [place] 1.005 (1.005-1.030) Urine Protein Neg (Negative) Urine Glucose (UA) Norm (Normal) Urine Ketones Negative (Negative) Urine Nitrate Negative (Negative) Urine Bilirubin Neg (Negative) Ur Leukocyte Esterase 2+ H (Negative) Urine RBC 0-4 H (0-2) /hpf Urine WBC 10-15 H (0-5) /hpf COVID Results 11/14/22 08:43 Coronavirus 229E (PCR) Not detected SARS-CoV-2 (PCR) Not detected Coags 11/13/22 16:54 PT 14.20 INR 1.06 D-Dimer >= 20.00 H Cardiac Studies: No Data to Display
--- NOTE | 2022-11-14 15:57 | P.PN_ITS ---
Subjective Subjective: No acute events overnight. Patient has remained hemodynamically stable but had a fever earlier today morning with Tmax of 101.1 Fahrenheit. On examination seen with multiple family members at bedside. Denies any new complaints. Remains comfortable with pain only on moving the leg. Blood was appreciated for resolving leukocytosis, stable hemoglobin, stable CMP. Vitals/I&O/Wt Last Vital Signs Temp 99.2 F 11/14/22 11:38 Pulse 81 11/14/22 11:38 Resp 18 11/14/22 13:24 BP 108/51 11/14/22 11:38 Pulse Ox 91 11/14/22 11:38 O2 Del Method Room Air 11/14/22 11:38 FiO2 96 11/14/22 02:00 11/14/22 11/14/22 11/14/22 06:59 14:59 22:59 Intake Total 50 / 50 900 / 900 100 / 1000 Balance 50 / 50 900 / 900 100 / 1000 Weight last 48 hrs Weight 77.111 kg Physical Exam Narrative: General: No acute distress, AO x3 HEENT: PERRLA, pupils bilaterally equal and reactive Chest: Normal vesicular breath sounds, no added sounds, equal good air entry bilaterally CVS: S1-S2 regular, no murmurs, no tachycardia, no gallops, no rubs Abdomen: Soft, nontender, no organomegaly, bowel sounds present Neuro: No focal deficits, no facial deformity, AO x3, power 5/5 in all limbs Urinary Catheter Management: Fair: Cath Placed During This Visit: yes Reason for Continuing Indwelling Catheter: Perioperative Use in Selected Surgeries Urinary Catheter Date of Insertion: 11/13/22 Urinary Catheter Time of Insertion: 18:19 Data 11/14/22 04:37 11/14/22 04:37 A&P Assessment and plan (1) Closed fracture of right hip: Mechanical fall. Day 1 of admission. NPO. Awaiting orthopedic consultation. Plan for ORIF. Orthopedic consulted from ER. Postoperatively monitor hemoglobin. PT postoperatively. Anticoagulation postoperatively as per surgical team SCD for DVT prophylaxis hold off on medical prophylaxis given need for OR. Morphine 2 mg every 4 hourly as needed for pain along with home dose of [place] twice daily as needed for pain. Qualifiers: Encounter type: initial encounter Qualified Code(s): S72.001A - Fracture of unspecified part of neck of right femur, initial encounter for closed fracture (2) Hypoxia: Hypoxia has resolved. Most likely in setting of pain as patient is slightly tachycardic as well. EKG appreciated. Patient denies any chest pain. D-dimer elevated on admission most likely secondary to fracture. As patient is currently on room air comfortable saturating over 90% concerns for PE very low. X-ray negative for any consolidation. Oxygen supplementation keeping saturation over 90%. Plan Febrile episode: 1 episode of fever earlier today morning. Follow-up blood culture, urine culture. Continue with empiric ceftriaxone for now. Check respiratory viral panel, blood culture. Full code N.p.o. for possible ORIF SCDs for DVT prophylaxis Famotidine for PUD prophylaxis Discharge plan: Plan to discharge home with home health versus SNF depending on PT evaluation postoperatively. Attestations Medical Necessity Statement*: Requires further hospitalization for hip fracture requiring ORIF Diagnoses Closed fracture of right hip S72.001A Encounter type: initial encounter Hypoxia R09.02
[2022-11-14] MEDS: ceFAZolin 2,000 MG in sodium chloride 0.9% (plus) 50 ML 100 MG IV (16:22)
[2022-11-14] MEDS: ceFAZolin 1,000 mg SDV 1000 MG IRRIGATION (17:18)
[2022-11-14] MEDS: BUPivacaine 0.5% INJ 30 mL INJECTION (17:27)
[2022-11-14] MEDS: lidocaine-epi 1% 20 mL INJ INJECTION (17:27)
--- NOTE | 2022-11-14 18:23 | P.OP_ITS ---
Operative Report Date of procedure: November 14, 2022 Pre-op diagnosis: Right intertrochanteric hip fracture Post-op diagnosis: Right intertrochanteric hip fracture Procedure done: Open reduction internal fixation right intertrochanteric hip fracture Implants: [place] gamma 3 nail system with a size 11 mm x 180 mm x 125 degree trochanteric nail, a 10.5 mm x 105 mm proximal lag screw and a distal screw size 5 mm x 40 mm Pathology: none sent Surgeon: Isabell Umanzor MD Emergency Medical Technician Basic: [facility] operating room technicians Anesthesia: General (Per LMA, ASA 3) Estimated blood loss (mL): 120 IV fluids (mL): 1,000 Urine output (mL): 1,400 Complications: None Findings: Minimally displaced slightly angulated right intertrochanteric hip fracture Condition: stable Brief History: Josephine Ellis is a 77 year old female who is known to me through my prior treatment of her .? The patient presented through the emergency department yesterday with history of a fall at home.? Reportedly, she tripped over a chair and fell onto her right side.? She was unable to ambulate and had significant pain on the right side, so she presented to the emergency department.? Upon evaluation there, she was found to have a right intertrochanteric hip fracture.? The patient has previously had spinal fusion.? My review of the x-rays demonstrates an intertrochanteric hip fracture with minimal displacement. Patient was seen in her room, and x-rays were evaluated. Plans were made for an open reduction internal fixation of her right intertrochanteric hip fracture. Questions were asked and answered. Consents were signed. Procedure: Patient is brought to the operating theater. After undergoing adequate general anesthesia with LMA, ASA 3, the patient was transferred to the fracture table, positioned on the table and fluoroscopic guidance obtained throughout the surgical procedure. Prior to the commencement of the surgical procedure, a surgical pause was performed. At the time of the surgical pause, we confirmed the site and side of surgery as well as preoperative surgical markings and appropriate and timely administration of IV antibiotics, Ancef 2 g. Availability of equipment was also confirmed. Fluoroscopy was used to confirm the fracture was appropriately reduced in both AP and lateral planes. An incision was then made slightly above the greater trochanter to allow access to the greater trochanter. An awl was used to enter the greater trochanter and a guidewire was subsequently placed. Once the guidewire was confirmed to be in appropriate position in AP and lateral planes, reaming was accomplished over this to allow for the proximal diameter of the nail. Guidewire was then re moved. An 11 mm x 180 mm x 125 degree gamma 3 trochanteric nail was placed into appropriate position with positioning being confirmed in AP and lateral planes on the x-ray. It passed without difficulty. Guidewire was then passed through the jigging system into the femoral head. We wanted to be center or slightly inferior and posterior to center. Guidewire was placed into appropriate position. Once the guidewire was in appropriate position and this position was confirmed by x-ray. This was then measured and we chose a 10.5 mm x 105 mm mm lag screw. We reamed to allow for the lag screw to be placed. The lag screw was then passed into the femoral head through the trochanteric nail. This was passed uneventfully and again position was confirmed in AP and lateral planes. Compression was obtained under fluoroscopic guidance. The set screw was then placed in position, tightened completely, and subsequently backed off one-eighth turn. The construct was left in position and attention was directed distally. Cannulas were again used to determine appropriate placement for the distal screw. This was placed in position without difficulty. It was measured off of the drill. The appropriate length screw was then obtained and placed in position without difficulty. Once the screw was in position, we confirmed appropriate placement of the components, and we removed the jigging system. Attention was then directed to closure. The hip was copiously irrigated with normal saline with antibiotics. Following this it was dried and closed. Tensor fascia annabel was closed proximally with 0 Vicryl in an interrupted fashion. Subcutaneous tissues were closed with 2-0 Monocryl, and the skin was closed with a continuous 3-0 Monocryl subcuticular stitch. This was then covered with Dermabond, Steri-Strip s, and OpSite. Prior to dressing placement, the wound was injected with a local anesthetic. The patient was removed from the fracture table and returned to recovery in satisfactory condition. The patient will be discharged to the floor for postoperative rehabilitation and pain management. There were no specimens obtained. Related Problem List Diagnoses (1) Closed intertrochanteric fracture of right hip:
--- NOTE | 2022-11-14 18:24 | ANE.PACU2 ---
Inpatient post-anesthesia follow up: Airway intact: Yes Vital signs: Temperature 98.1 F Pulse Rate 94 Respiratory Rate 17 Blood Pressure 135/55 Pulse Oximetry 96 Oxygen Delivery Me thod Nasal Cannula Oxygen Flow Rate 2 Fraction of Inspir ed Oxygen 96 Hydration adequate: Yes Nausea and vomiting: No Pain level: 3 Mental status: Baseline
[2022-11-14] MEDS: cefTRIAXone 1,000 MG in sodium chloride 0.9% (plus) 50 ML 100 MG IV (19:30)
[2022-11-15] VITALS (10 sets, daily range): BP systolic 93–111; BP diastolic 49–57; PULSE 67–94; RESP 14–17; TEMP 36.6–37.1; O2SAT 91–96
[2022-11-15] MEDS: ceFAZolin 2,000 MG in sodium chloride 0.9% (plus) 50 ML 100 MG IV ×3 (01:06→17:00)
[2022-11-15 05:00] LABS: Basophils % 0.1 %; Hematocrit 29.4 % (36-47); Lymphocytes # 0.5 10^3/uL (0.8-4.8); Lymphocytes % 6.3 %; Mean Corpuscular HGB Conc 30.3 g/dL (30-55); Mean Corpuscular Hemoglobin 29.7 pg (27-33); Mean Platelet Volume 9.1 fL (7.4-10.4); Monocytes # 0.2 10^3/uL (0.2-0.9); Monocytes % 2.7 %; Neutrophils # 7.04 10^3/uL (1.8-7.7); Neutrophils % 90.5 %; Nucleated Red Blood Cells % 0 %; Platelet Count 214 10^3/cmm (157-399); Red Cell Distribution Width 13.4 % (12.1-15.1); White Blood Count 7.78 10^3/uL (3.29-11.43)
[2022-11-15 05:20] LABS: Alanine Aminotransferase 8 U/L (0-33); Alkaline Phosphatase 90 U/L (35-105); Anion Gap 11.2 (5-19); Aspartate Amino Transferase 17 U/L (0-32); Blood Urea Nitrogen 7 mg/dL (8-23); Calcium 8.5 mg/dL (8.5-10.5); Carbon Dioxide 27 mmol/L (22-29); Chloride 107 mmol/L (98-107); Creatinine Clr Calc Pharmacy 62.3907; Globulin 2.9 g/dL (1.3-4.6); Glucose 152 mg/dL (65-115); Osmolality Calculated 293 mOsm/kg (285-295); Potassium 4.2 mmol/L (3.5-5.1); Sodium 141 mmol/L (136-145); Total Bilirubin 0.2 mg/dL (0.15-1.2); Total Protein 5.9 g/dL (6.6-8.7)
[2022-11-15] MEDS: aspirin 325 mg EC Tablet PO (08:17)
[2022-11-15] MEDS: famotidine 20 mg Tablet PO ×2 (08:17→17:58)
[2022-11-15] MEDS: docusate sodium 100 mg Capsule PO ×2 (08:17→17:58)
[2022-11-15] MEDS: multivitamin therapeutic Tablet 1 TAB PO (08:17)
[2022-11-15] MEDS: HYDROcodone-acetaminophen 5-325 mg Tablet 1 TAB PO (09:35)
[2022-11-15] MEDS: morphine 4 mg/mL SDV 1 mL 2 MG IVP (13:38)
--- NOTE | 2022-11-15 14:09 | P.PN_ITS ---
Subjective Subjective: No acute events overnight. Patient underwent ORIF yesterday. Tolerated procedure well. Working with physical therapy today. Patient otherwise has remained hemodynamically stable and afebrile in last 24 hours. Blood work appreciated for drop in hemoglobin to 8.9, stable CBC otherwise, CMP stable. Vitals/I&O/Wt Last Vital Signs Temp 98.6 F 11/15/22 11:34 Pulse 80 11/15/22 11:34 Resp 17 11/15/22 13:38 BP 111/55 11/15/22 11:34 Pulse Ox 96 11/15/22 11:34 O2 Del Method Room Air 11/15/22 03:59 O2 Flow Rate 2 11/14/22 20:03 FiO2 96 11/14/22 02:00 11/14/22 11/15/22 11/15/22 22:59 06:59 14:59 Intake Total 3277.5 / 4177.5 50 / 4227.5 1650 / 1650 Output Total 3120 / 3120 250 / 3370 700 / 700 Balance 157.5 / 1057.5 -200 / 857.5 950 / 950 Weight last 48 hrs Weight 77.111 kg Physical Exam Narrative: General: No acute distress, AO x3 HEENT: PERRLA, pupils bilaterally equal and reactive Chest: Normal vesicular breath sounds, no added sounds, equal good air entry bilaterally CVS: S1-S2 regular, no murmurs, no tachycardia, no gallops, no rubs Abdomen: Soft, nontender, no organomegaly, bowel sounds present Neuro: No focal deficits, no facial deformity, AO x3, power 5/5 in all limbs Urinary Catheter Management: Fair: Cath Placed During This Visit: yes Reason for Continuing Indwelling Catheter: Perioperative Use in Selected Surgeries Urinary Catheter Date of Insertion: 11/13/22 Urinary Catheter Time of Insertion: 18:19 Data 11/15/22 04:20 11/15/22 04:20 Micro: Microbiology 11/14/22 19:40 Blood Culture - Preliminary Blood SPECIMEN COLLECTED 11/14/22 19:32 Blood Culture - Preliminary Blood SPECIMEN COLLECTED A&P Assessment and plan (1) Closed fracture of right hip: Mechanical fall. Post-ORIF day 1. PT, perioperative antibiotics, anticoagulation as per surgical team. Hemoglobin down to 8.9 today. Will repeat in evening. Most likely postoperative anemia. Transfuse if hemoglobin drops below 8 or patient is hemodynamically unstable. Stop IV fluids. Patient tolerating oral well. Morphine 2 mg every 4 hourly as needed for pain along with home dose of [place] every 6 as needed for pain. Qualifiers: Encounter type: initial encounter Qualified Code(s): S72.001A - Fracture of unspecified part of neck of right femur, initial encounter for close d fracture (2) Hypoxia: Hypoxia has resolved. Most likely in setting of pain as patient is slightly tachycardic as well. EKG appreciated. Patient denies any chest pain. D-dimer elevated on admission most likely secondary to fracture. As patient is currently on room air comfortable saturating over 90% concerns for PE very low. X-ray negative for any consolidation. Oxygen supplementation keeping saturation over 90%. Plan Febrile episode: No leukocytosis. No fever in last 24 hours. Respiratory viral panel negative. Follow-up blood culture and urine culture. For now continue with empiric ceftriaxone. Full code Regular diet SCDs for DVT prophylaxis Famotidine for PUD prophylaxis Discharge plan: Patient would prefer to go with home health for further physical therapy. Plan to discharge possible home with home health though awaiting PT evaluation. Attestations Medical Necessity Statement*: Requires further hospitalization for postoperative care for post ORIF in setting of hip fracture while hemoglobin is monitored Diagnoses Closed fracture of right hip S72.001A Encounter type: initial encounter Hypoxia R09.02
--- NOTE | 2022-11-15 16:00 | P.PN_ITS ---
Subjective Subjective: Patient is status post open reduction internal fixation of her closed right intertrochanteric hip fracture. She tolerated this well and has been working with physical therapy. She is planning discharge to home, and she is not quite yet safe for independent ambulation. Her help at home is her who recently also had a hip fracture and is limited in his abilities to help her. Medications: Reviewed: Yes Vitals/I&O/Wt Last Vital Signs Temp 98.2 F 11/16/22 07:26 Pulse 82 11/16/22 07:26 Resp 18 11/16/22 07:26 BP 113/55 11/16/22 07:26 Pulse Ox 90 11/16/22 07:26 O2 Del Method Room Air 11/16/22 07:26 O2 Flow Rate 2 11/14/22 20:03 FiO2 96 11/14/22 02:00 11/15/22 11/16/22 11/16/22 22:59 06:59 14:59 Intake Total 340 / 1990 Balance 340 / 1290 Physical Exam Const: COMMON NORMALS: no acute distress, average body habitus, patient oriented x3 and alert GENERAL APPEARANCE: cooperative and comfortable ORIENTATION/CONSCIOUSNESS: Yes awake HENMT: COMMON NORMALS: normocephalic and atraumatic HEAD & SCALP: normocephalic and atraumatic Eye: GENERAL EYE: appearance normal, both eyes and all related structures Chest: COMMONS NORMALS: normal inspection of the chest Resp: COMMON NORMALS: normal respiratory effort EFFORT & INSPECTION: Yes able to speak in complete sentences and Yes symmetric chest movement Extremity: RIGHT LOWER EXTREMITY: Yes hip joint (Dressings are dry and intact.) Right hip: Yes inspection (There is no significant swelling noted.), Yes palpation (No fluid collections are palpable.), Yes ROM (Not evaluated.) and Yes neurovascular exam (Intact distally) Neuro: COMMON NORMALS: patient oriented x3 SENSORIUM/ORIENTATION: Yes alert Psych: COMMON NORMALS: mental status grossly normal APPEARANCE: Yes grossly normal ATTITUDE: Yes calm and Yes engaged ATTENTION/CONCENTRATION: Yes attention grossly intact Skin: COMMON NORMALS: no rashes or lesions noted GENERAL SKIN EXAM: no rashes or lesions noted Urinary Catheter Management: Fair: Cath Placed During This Visit: yes Reason for Continuing Indwelling Catheter: Perioperative Use in Selected Surgeries Urinary Catheter Date of Insertion: 11/13/22 Urinary Catheter Time of Insertion: 18:19 Data 11/16/22 04:15 11/16/22 04:15 Micro: Microbiology 11/14/22 19:40 Blood Culture - Preliminary Blood NEGATIVE TO DATE 11/14/22 19:32 Blood Culture - Preliminary Blood NEGATIVE TO DATE A&P Assessment and plan (1) Closed intertrochanteric fracture of right hip: Patient was seen and admitted through the emergency department with a diagnosis of right intertrochanteric hip fracture. She was admitted to the hospitalist service for medical evaluation and optimization for open reduction internal fixation of her right intertrochanteric hip fracture. Patient underwent open reduction internal fixation of her fracture on November 14. She tolerated this well. Today is her first postoperative day, and the patient worked with physical therapy. She is still somewhat limited in her ability to be independent, and therefore, she will need to remain an additional night as she is planning to be discharged home. Her currently is limited in his ability to help her secondary to recent hip fracture himself. Attestations Medical Necessity Statement*: Patient requires ongoing hospitalization for follow-up after hip fracture with ORIF. Coding Level of Care Code Acute Code for [facility] Fwd Diagnoses Closed intertrochanteric fracture of right hip S72.141A
[2022-11-15] MEDS: cefTRIAXone 1,000 MG in sodium chloride 0.9% (plus) 50 ML 100 MG IV (17:58)
[2022-11-15 19:16] LABS: Hematocrit 27.6 % (36-47)
[2022-11-15] MEDS: acetaminophen 325 mg Tablet 650 MG PO (21:54)
[2022-11-16] VITALS (14 sets, daily range): BP systolic 105–133; BP diastolic 47–76; PULSE 67–86; RESP 14–18; TEMP 36.6–36.9; O2SAT 90–97
[2022-11-16] MEDS: HYDROcodone-acetaminophen 5-325 mg Tablet 1 TAB PO ×2 (05:02→12:54)
[2022-11-16 05:05] LABS: Basophils # 0.1 10^3/uL (0.0-0.1); Basophils % 0.7 %; Eosinophils # 0.2 10^3/uL (0.0-0.8); Eosinophils % 3.1 %; Hematocrit 24.6 % (36-47); Lymphocytes # 1.3 10^3/uL (0.8-4.8); Mean Corpuscular HGB Conc 31.3 g/dL (30-55); Mean Corpuscular Hemoglobin 30.8 pg (27-33); Mean Corpuscular Volume 98.4 fl (85-98); Mean Platelet Volume 9.6 fL (7.4-10.4); Monocytes # 0.5 10^3/uL (0.2-0.9); Monocytes % 6.4 %; Neutrophils # 5.31 10^3/uL (1.8-7.7); Neutrophils % 72.3 %; Nucleated Red Blood Cells % 0 %; Platelet Count 215 10^3/cmm (157-399); Red Cell Distribution Width 13.8 % (12.1-15.1); White Blood Count 7.35 10^3/uL (3.29-11.43)
[2022-11-16 05:22] LABS: Alanine Aminotransferase 7 U/L (0-33); Albumin Level 2.9 g/dL (3.5-5.2); Alkaline Phosphatase 83 U/L (35-105); Anion Gap 10.1 (5-19); Aspartate Amino Transferase 16 U/L (0-32); Blood Urea Nitrogen 10 mg/dL (8-23); Calcium 8.4 mg/dL (8.5-10.5); Carbon Dioxide 28 mmol/L (22-29); Chloride 108 mmol/L (98-107); Creatinine Clr Calc Pharmacy 62.3907; Globulin 2.7 g/dL (1.3-4.6); Glucose 98 mg/dL (65-115); Osmolality Calculated 293 mOsm/kg (285-295); Potassium 4.1 mmol/L (3.5-5.1); Sodium 142 mmol/L (136-145); Total Bilirubin 0.2 mg/dL (0.15-1.2); Total Protein 5.6 g/dL (6.6-8.7)
--- NOTE | 2022-11-16 09:37 | P.DS_ITS ---
Discharge Providers Date of Admission: 11/13/22 21:26 Date of Discharge: November 16, 2022 Attending Provider at Admission: Sidney Smith MD Attending Provider at Discharge: Sidney Smith MD Primary Care Provider: Pato Coelho MD Diagnoses at Discharge Discharge Diagnosis (1) Closed intertrochanteric fracture of right hip: Status: Acute Reason for Visit Reason for Visit: Fall Hospital Course Hospital Course Josephine Ellis is a 77 year old female with no significant past medical history other than recurrent UTIs, presented to the ER today after tripping over a chair and falling.? Post fall she complained of pain on the right side of her hip so presented to the ER.? In the ER patient was found to have a greater trochanteric fracture of the right hip hence hospitalist service was consulted.? No blood work so far available though CBC CMP and INR has been ordered. Patient otherwise denies any nausea, vomiting, headache, dizziness, runny nose, chest pain.? Previous surgical procedure was spinal fusion and removal of deep hardware which was complicated by acute blood loss anemia.? On examination patient laying in antalgic position denies any chest pain with saturation of around low 80s to low 90s on room air.? Patient herself denies any difficulty in breathing. Admitted to the hospital for further evaluation and management of hip fracture. Orthopedics was consulted. She underwent ORIF on 11/14. Postoperative stay was consulted by her developing postoperative anemia for which she required 1 unit of blood transfusion. Patient worked well with physical therapy though was slightly limited because of pain. Safe discharge planning was discussed in detail with the patient and she expressed wishes for discharge home with home health for physical therapy. Patient does have good support around home to take care of her needs. Physical Exam Narrative: General: No acute distress, AO x3 HEENT: PERRLA, pupils bilaterally equal and reactive Chest: Normal vesicular breath sounds, no added sounds, equal good air entry bilaterally CVS: S1-S2 regular, no murmurs, no tachycardia, no gallops, no rubs Abdomen: Soft, nontender, no organomegaly, bowel sounds present Neuro: No focal deficits, no facial deformity, AO x3, power 5/5 in all limbs Urinary Catheter Management: Fair: Cath Placed During This Visit: yes Reason for Continuing Indwelling Catheter: Perioperative Use in Selected Surgeries Urinary Catheter Date of Insertion: 11/13/22 Urinary Catheter Time of Insertion: 18:19 Discharge Data Studies Completed and Pending Completed Studies During Hospitalization Category Date Time Status CXRP [XR chest 1V portable [id number]] Stat Exams 11/13/22 16:11 Completed XR hip RT 1V wo/[place] [id number] Routine Exams 11/14/22 Completed XR hip RT 2-3V wo/w pel* [id number] Stat Exams 11/13/22 16:11 Completed Pending at discharge Category Date Time Status Blood Culture Stat Lab 11/14/22 19:40 Results Radiology Impressions Chest X-Ray 11/13/22 16:11 IMPRESSION: 1. Large hiatal hernia. 2. Cardiomegaly and mild pulmonary vascular congestion. Hip/Pelvis X-Ray 11/13/22 16:11 IMPRESSION: 1. Right hip intertrochanteric oblique minimally displaced fracture. 2. Lumbar spine surgical hardware seen. Laboratory Results WBC 7.35 10^3/uL (3.29-11.43) 11/16/22 04:15 RBC 2.50 10^6/uL (3.85-5.65) L 11/16/22 04:15 Hgb 7.70 g/dL (11.27-16.99) L 11/16/22 04:15 Hct 24.6 % (36-47) L 11/16/22 04:15 MCV 98.4 fl (85-98) H 11/16/22 04:15 MCH 30.8 pg (27-33) 11/16/22 04:15 MCHC 31.3 g/dL (30-55) 11/16/22 04:15 RDW 13.8 % (12.1-15.1) 11/16/22 04:15 Plt Count 215 10^3/cmm (157-399) 11/16/22 04:15 MPV 9.6 fL (7.4-10.4) 11/16/22 04:15 Neut % (Auto) 72.3 % 11/16/22 04:15 Lymph % (Auto) 17.0 % 11/16/22 04:15 [place] % (Auto) 6.4 % 11/16/22 04:15 Eos % (Auto) 3.1 % 11/16/22 04:15 Baso % (Auto) 0.7 % 11/16/22 04:15 Neut # (Auto) 5.31 10^3/uL (1.8-7.7) 11/16/22 04:15 Lymph # (Auto) 1.3 10^3/uL (0.8-4.8) 11/16/22 04:15 [place] # (Auto) 0.5 10^3/uL (0.2-0.9) 11/16/22 04:15 Eos # (Auto) 0.2 10^3/uL (0.0-0.8) 11/16/22 04:15 Baso # (Auto) 0.1 10^3/uL (0.0-0.1) 11/16/22 04:15 Nucleated RBC % (auto) 0 % 11/16/22 04:15 Nucleated RBCs # 0.0 /100WBC 11/16/22 04:15 PT 14.20 SECONDS (12.1-14.9) 11/13/22 16:54 INR 1.06 (0.8-1.2) 11/13/22 16:54 D-Dimer >= 20.00 ug/mLFEU (0-0.59) H 11/13/22 16:54 Sodium 142 mmol/L (136-145) 11/16/22 04:15 Potassium 4.1 mmol/L (3.5-5.1) 11/16/22 04:15 Chloride 108 mmol/L (98-107) H 11/16/22 04:15 Carbon Dioxide 28 mmol/L (22-29) 11/16/22 04:15 Anion Gap 10.1 (5-19) 11/16/22 04:15 BUN 10 mg/dL (8-23) 11/16/22 04:15 Creatinine 0.5 mg/dL (0.5-0.9) 11/16/22 04:15 GFR Calculation Not Reportable 11/16/22 04:15 Glucose 98 mg/dL (65-115) 11/16/22 04:15 Estimat Average Glucose 108 11/14/22 04:37 Hemoglobin A1c 5.4 % (4.0-6.0) 11/14/22 04:37 Calculated Osmolality 293 mOsm/kg (285-295) 11/16/22 04:15 Calcium 8.4 mg/dL (8.5-10.5) L 11/16/22 04:15 Phosphorus 3.5 mg/dL (2.5-4.5) 11/14/22 04:37 Magnesium 1.8 mg/dL (1.7-2.3) 11/14/22 04:37 Total Bilirubin 0.2 mg/dL (0.15-1.2) 11/16/22 04:15 AST 16 U/L (0-32) 11/16/22 04:15 ALT 7 U/L (0-33) 11/16/22 04:15 Alkaline Phosphatase 83 U/L (35-105) 11/16/22 04:15 Total Protein 5.6 g/dL (6.6-8.7) L 11/16/22 04:15 Albumin 2.9 g/dL (3.5-5.2) L 11/16/22 04:15 Globulin 2.7 g/dL (1.3-4.6) 11/16/22 04:15 Triglycerides 90 mg/dL (0-150) 11/14/22 04:37 Cholesterol 127 mg/dL (0-200) 11/14/22 04:37 LDL Cholesterol, Calc 59 mg/dL (50-129) 11/14/22 04:37 HDL Cholesterol 50 mg/dL (60-100) L 11/14/22 04:37 LDL/HDL Ratio 1.18 RATIO (0.00-3.22) 11/14/22 04:37 Cholesterol/HDL Ratio 2.54 mg/dL (0.0-4.40) 11/14/22 04:37 Vitamin B12 486 pg/mL (232-1245) 11/13/22 16:54 Folate < 20.0 ng/mL (4.8-37.3) 11/14/22 04:37 Procalcitonin 0.04 ng/mL (0-0.5) 11/13/22 16:54 TSH 2.55 uIU/mL (0.27-4.20) 11/13/22 16:54 Urine Color Yellow (Yellow) 11/13/22 18:40 Urine Appearance Hazy (CLEAR) A 11/13/22 18:40 Urine pH 5 (5-7) 11/13/22 18:40 Ur Specific [place] 1.005 (1.005-1.030) 11/13/22 18:40 Urine Protein Neg (Negative) 11/13/22 18:40 Urine Glucose (UA) Norm (Normal) 11/13/22 18:40 Urine Ketones Negative (Negative) 11/13/22 18:40 Urine Blood 3+ (Negative) H 11/13/22 18:40 Urine Nitrate Negative (Negative) 11/13/22 18:40 Urine Bilirubin Neg (Negative) 11/13/22 18:40 Urine Urobilinogen Norm mg/dL (Negative) 11/13/22 18:40 Ur Leukocyte Esterase 2+ (Negative) H 11/13/22 18:40 Urine RBC 0-4 /hpf (0-2) H 11/13/22 18:40 Urine WBC 10-15 /hpf (0-5) H 11/13/22 18:40 Ur Squamous Epith Cells 15-25 /hpf (0-5) H 11/13/22 18:40 Amorphous Sediment Not Reportable 11/13/22 18:40 Urine Bacteria Trace /hpf (NONE) 11/13/22 18:40 Nasal Influ A H1 2009 PCR Not detected (NOT DETECT) 11/14/22 08:43 Adenovirus (PCR) Not detected (NOT DETECT) 11/14/22 08:43 C. pneumoniae DNA (PCR) Not detected (NOT DETECT) 11/14/22 08:43 Coronavirus 229E (PCR) Not detected (NOT DETECT) 11/14/22 08:43 Human Metapneumovir PCR Not detected (NOT DETECT) 11/14/22 08:43 Influenza A (H1) PCR Not detected (NOT DETECT) 11/14/22 08:43 Influenza A (H3) PCR Not detected (NOT DETECT) 11/14/22 08:43 Influenza Type A (PCR) Not detected (NOT DETECT) 11/14/22 08:43 Influenza Type B (PCR) Not detected (NOT DETECT) 11/14/22 08:43 M. pneumoniae (PCR) Not detected (NOT DETECT) 11/14/22 08:43 Parainfluenza 1 (PCR) Not detected (NOT DETECT) 11/14/22 08:43 Parainfluenza 2 (PCR) Not detected (NOT DETECT) 11/14/22 08:43 Parainfluenza 3 (PCR) Not detected (NOT DETECT) 11/14/22 08:43 Parainfluenza 4 (PCR) Not detected (NOT DETECT) 11/14/22 08:43 RSV Type A (PCR) Not detected (NOT DETECT) 11/14/22 08:43 RSV Type B (PCR) Not detected (NOT DETECT) 11/14/22 08:43 Entero/Rhino (PCR) Not detected (NOT DETECT) 11/14/22 08:43 SARS-CoV-2 (PCR) Not detected (NOT DETECT) 11/14/22 08:43 Vitals Last Vital Signs Temp 98.2 F 11/16/22 07:26 Pulse 82 11/16/22 07:26 Resp 18 11/16/22 07:26 BP 113/55 11/16/22 07:26 Pulse Ox 90 11/16/22 07:26 O2 Del Method Room Air 11/16/22 07:26 O2 Flow Rate 2 11/14/22 20:03 FiO2 96 11/14/22 02:00 Discharge Plan Discharge Patient Disposition: Home Health Service Condition: Stable Prescriptions: New aspirin 325 mg Tablet,Delayed Release (Dr/Ec) 325 mg PO DAILY Qty: 30 0RF polysaccharide iron complex [Ferrex 150] 150 mg iron capsule 150 mg PO DAILY Qty: 30 0RF levofloxacin 500 mg tablet 500 mg PO Q24H 5 Days Qty: 5 0RF Continued ascorbic acid (vitamin C) 500 mg capsule 1,000 mg PO DAILY cinnamon bark [Cinnamon] 500 mg capsule 500 mg PO DAILY Complete Multivitamin Tablet 1 tab PO DAILY vitamin B complex [B Complex-Vitamin B12] Tablet 1 tab PO DAILY calcium carbonate [Calcium 500] 500 mg calcium (1,250 mg) tablet 500 mg PO DAILY biotin 5 mg capsule 5 mg PO DAILY (DME) TLSO Brace See Rx Instructions .Route .MEDSUPPLY Qty: 1 0RF Rx Instructions: As directed hydrocodone-acetaminophen 5-325 mg tablet 1 tab PO BID PRN (Reason: pain) 30 Days Qty: 60 0RF magnesium 500 mg Tablet 500 mg PO DAILY Held furosemide 40 mg tablet 40 mg PO DAILY Hold Instructions: Resume on 11/23/22. potassium chloride 20 mEq tablet,ER particles/crystals 60 meq PO DAILY Hold Instructions: Resume on 11/23/22. Discharge Orders: Discharge Order (Routine); Ordered 11/16/22 Ordered By: Sidney Luis Other Ambulatory Orders: DME: Miscellaneous (Order) Location: None Selected Ordered By: Sidney Smith Referrals: Isabell Umanzor MD [Physician] - 12/03/22 3:00 pm () Pato Coelho MD [Primary Care Provider] - 4-7 days (We have notified your physician's clinic of the need for a follow-up appointment to be scheduled. If you have not heard from them within the next 2 business days, please call them directly. You may also reach out to our food and beverage assistant manager at [phone] and she can assist you.) Discharge Diet: Cardiac Discharge Activity: Resume usual activity and Increase activity as tolerated Patient Instructions: Opioid Safety Activity Restrictions/Additional Instructions: Continue with physical therapy as described in detail. Please follow-up with a primary care provider within next 1 week. He should have repeat CBC and any follow-up with a primary care provider. Please follow-up with orthopedics on set appointment Discharge Attestations Time Spent in Discharge Care*: greater than 30 min Specific Discharge Activities: educating patient, educating and/or supporting family/caregiver, discussing with pcp/other providers, discussing with case planner/social workers/dc planners, documenting/other paperwork and evaluating patient/reviewing data Status at Discharge: Cognitive status at discharge: cognitively intact , Behavioral status at discharge: cooperative , Functional status at discharge: uses cane/walker , Overall status at discharge: patient is progressing back to baseline Quality Metrics Clinical Quality Measures [ No reported AMI, CVA or VTE this stay] Coding Level of Care Code 72648 Total time (in minutes) for Discharge: 45 Diagnoses Closed intertrochanteric fracture of right hip S72.141A
[2022-11-16] MEDS: multivitamin therapeutic Tablet 1 TAB PO (09:40)
[2022-11-16] MEDS: aspirin 325 mg EC Tablet PO (09:40)
[2022-11-16] MEDS: famotidine 20 mg Tablet PO (09:40)
[2022-11-16] MEDS: sodium chloride 0.9% 100 mL Bag 50 ML IV (11:18)
[2022-11-16 11:54] LABS: Iron 38 ug/dL (37-145); Total Iron Binding Capacity 146 mcg/dl; Unsaturated Iron Binding 108 ug/dL (112-347)
--- NOTE | 2022-11-16 12:18 | PC.SOCIAL ---
IMM Update pg 2 of IMM updated and reviewed w/ patient. Copy provided and Copy dated, initialed and placed in chart.
--- NOTE | 2022-11-16 13:09 | PM.PN ---
Subjective Subjective: Patient is seen today in her room. She is receiving blood products prior to her discharge. She states she feels much more comfortable with ambulation than she did yesterday. Medications: Reviewed: Yes Vitals/I&O/Wt Last Vital Signs Temp 98.1 F 11/16/22 11:34 Pulse 77 11/16/22 11:47 Resp 16 11/16/22 11:47 BP 125/60 11/16/22 11:47 Pulse Ox 97 11/16/22 11:47 O2 Del Method Room Air 11/16/22 11:17 O2 Flow Rate 2 11/14/22 20:03 FiO2 96 11/14/22 02:00 11/15/22 11/16/22 11/16/22 22:59 06:59 14:59 Intake Total 340 / 1990 240 / 240 Balance 340 / 1290 240 / 240 Physical Exam Const: COMMON NORMALS: no acute distress, average body habitus, patient oriented x3 and alert GENERAL APPEARANCE: cooperative and comfortable ORIENTATION/CONSCIOUSNESS: Yes awake HENMT: COMMON NORMALS: normocephalic and atraumatic HEAD & SCALP: normocephalic and atraumatic Eye: GENERAL EYE: appearance normal, both eyes and all related structures Chest: COMMONS NORMALS: normal inspection of the chest Resp: COMMON NORMALS: normal respiratory effort EFFORT & INSPECTION: Yes able to speak in complete sentences and Yes symmetric chest movement Extremity: RIGHT LOWER EXTREMITY: Yes hip joint (Dressings are dry and intact. Patient is up in a chair.) Right hip: Yes neurovascular exam (Intact distally) Neuro: COMMON NORMALS: patient oriented x3 SENSORIUM/ORIENTATION: Yes alert Psych: COMMON NORMALS: mental status grossly normal APPEARANCE: Yes grossly normal ATTITUDE: Yes calm and Yes engaged ATTENTION/CONCENTRATION: Yes attention grossly intact Skin: COMMON NORMALS: no rashes or lesions noted GENERAL SKIN EXAM: no rashes or lesions noted Urinary Catheter Management: Fair: Cath Placed During This Visit: yes Reason for Continuing Indwelling Catheter: Perioperative Use in Selected Surgeries Urinary Catheter Date of Insertion: 11/13/22 Urinary Catheter Time of Insertion: 18:19 Data 11/16/22 04:15 11/16/22 04:15 Micro: Microbiology 11/14/22 19:40 Blood Culture - Preliminary Blood NEGATIVE TO DATE 11/14/22 19:32 Blood Culture - Preliminary Blood NEGATIVE TO DATE A&P Assessment and plan (1) Closed intertrochanteric fracture of right hip: Patient was seen and admitted through the emergency department with a diagnosis of right intertrochanteric hip fracture. She was admitted to the hospitalist service for medical evaluation and optimization for open reduction internal fixation of her right intertrochanteric hip fracture. Patient underwent open reduction internal fixation of her fracture on November 14. She tolerated this well. Been working with physical therapy, and has improved in her independence in ambulation. She feels comfortable as does her family with her being discharged to home. Attestations Medical Necessity Statement*: Discharge to home plan for today. Coding Level of Care Code Acute Code for [employer] [facility] Diagnoses Closed intertrochanteric fracture of right hip S72.141A
[2022-11-22 13:09] LABS: Vit D 1,25 (Oh)2, Total 32 pg/mL (18-72); Vit D2 1,25 (Oh)2 <8 pg/mL; Vit D3 1,25 (Oh)2 32 pg/mL
== END 2022-11-16 17:20 | disposition home health service (06) | DRG 482 ==
LOC: ER 17:28 → MEDSURG 21:49
PROVIDERS: Specialist; Admitting Provider Student in an Organized Health Care Education/Training Program; Emergency Provider Emergency Medicine; PCP Family Medicine; Visit Provider Student in an Organized Health Care Education/Training Program
PROC: 0QH636Z Insertion of Intramedullary Internal Fixation Device into Right Upper Femur, Percutaneous Approach (ICD-10-PCS; CPT 27245; principal; 2022-11-14 15:30)
DX: S72.111A Displaced fracture of greater trochanter of right femur, initial encounter for closed fracture (principal); W01.0XXA Fall on same level from slipping, tripping and stumbling without subsequent striking against object, initial encounter; Z87.440 Personal history of urinary (tract) infections; Z98.1 Arthrodesis status; Z85.828 Personal history of other malignant neoplasm of skin; M47.814 Spondylosis without myelopathy or radiculopathy, thoracic region; Z96.651 Presence of right artificial knee joint; Z87.891 Personal history of nicotine dependence; R00.0 Tachycardia, unspecified; R09.02 Hypoxemia; Z79.891 Long term (current) use of opiate analgesic
CPT/HCPCS: 36415; 36430; 51702; 71045; 73501; 73502; 76000; 80053; 80061; 81001; 82607; 82652; 82746; 83036; 83540; 83550; 83735; 84100; 84145; 84443; 85014; 85018; 85025; 85378; 85610; 86850; 86900; 86920; 87040; 87486; 87581; 87633; 93005; 94664; 96365; 96375; 97110; 97116; 97161; 97166; 97530; 99285; C1713; J0131; J0690; J0696; J1100; J1170; J2270; J2371; J2405; J2704; J3010; J3490; J7030; P9016; P9045

== ENCOUNTER → 2022-12-03 15:03 | Outpatient (BNVA) | payer MEDICARE, SELFPAY | PROVIDERS: PCP Family Medicine; Visit Provider Specialist | DX: Z98.890 Other specified postprocedural states; S72.144D Nondisplaced intertrochanteric fracture of right femur, subsequent encounter for closed fracture with routine healing; X58.XXXD Exposure to other specified factors, subsequent encounter | CPT/HCPCS: 73502; 99024 ==

== ENCOUNTER → 2022-12-04 13:04 | Outpatient (BNVA) | payer MEDICARE, OTHER, SELFPAY | PROVIDERS: PCP Family Medicine; Visit Provider Family Medicine | DX: S72.141A Displaced intertrochanteric fracture of right femur, initial encounter for closed fracture (principal); X58.XXXA Exposure to other specified factors, initial encounter | CPT/HCPCS: 80053; 85025 ==

== ENCOUNTER 2023-01-03 11:58 | Outpatient (CLI) | payer MEDICARE, OTHER, SELFPAY ==
--- NOTE | 2023-01-03 12:04 | XR_ITS ---
WS: [id number] Chest with left rib detail, 5 views, 01/03/2023 Clinical Data: right rib pain Comparison: Portable chest, 11/13/2022 Findings: The lungs show no nodules, masses, or effusions. There is pleural scarring and patchy opacity in the left lower lobe which probably represents residual scarring and atelectasis. The heart is normal. No pneumonia or pneumothorax is seen. There is a hiatal hernia behind the heart. The aortic arch shows calcification and tortuosity. The ribs are intact. No rib fractures seen. No subcutaneous emphysema is present. There is an extensive thoracolumbar posterior fusion. Impression: 1. Patchy opacity in left lower lobe which may represent scarring and atelectasis. 2. Extensive posterior thoracolumbar fusion. 3. Negative for left rib fracture.
== END 2023-01-03 11:59 | disposition home or self-care (01) ==
LOC: RAD 11:59
PROVIDERS: PCP Family Medicine; Visit Provider Family Medicine
DX: R07.81 Pleurodynia (principal); K44.9 Diaphragmatic hernia without obstruction or gangrene
CPT/HCPCS: 71101; 90686

== ENCOUNTER → 2023-01-23 15:14 | Outpatient (BNVA) | payer MEDICARE, SELFPAY | PROVIDERS: PCP Family Medicine; Visit Provider Nurse Practitioner | DX: Z98.890 Other specified postprocedural states (principal); S72.144D Nondisplaced intertrochanteric fracture of right femur, subsequent encounter for closed fracture with routine healing; M54.41 Lumbago with sciatica, right side; X58.XXXD Exposure to other specified factors, subsequent encounter | CPT/HCPCS: 73502; 99024 ==

== ENCOUNTER → 2023-02-27 13:48 | Outpatient (BNVA) | payer MEDICARE, OTHER, SELFPAY | PROVIDERS: PCP Family Medicine; Visit Provider Nurse Practitioner | DX: M70.61 Trochanteric bursitis, right hip (principal); S72.144D Nondisplaced intertrochanteric fracture of right femur, subsequent encounter for closed fracture with routine healing; M54.41 Lumbago with sciatica, right side; X58.XXXD Exposure to other specified factors, subsequent encounter | CPT/HCPCS: 73502; 99213 ==

== ENCOUNTER → 2023-03-15 13:23 | Outpatient (BNVA) | payer MEDICARE, OTHER, SELFPAY | PROVIDERS: PCP Family Medicine; Visit Provider Family Medicine | DX: N39.0 Urinary tract infection, site not specified (principal) | CPT/HCPCS: 81000; 87086 ==

== ENCOUNTER → 2023-03-20 14:25 | Outpatient (BNVA) | payer MEDICARE, SELFPAY | PROVIDERS: PCP Family Medicine; Visit Provider Nurse Practitioner | DX: M70.61 Trochanteric bursitis, right hip; M54.41 Lumbago with sciatica, right side | CPT/HCPCS: 20610; 99213; J1040; J2795; J3301 ==

== ENCOUNTER 2023-05-20 16:32 | Emergency (ER) | payer MEDICARE, OTHER, SELFPAY ==
[2023-05-20] VITALS (7 sets, daily range): BP systolic 120–149; BP diastolic 62–78; PULSE 82–108; RESP 18; TEMP 36.8; O2SAT 90–97; BMI 28.3
--- NOTE | 2023-05-20 17:01 | ED_ITS ---
Documented by User: ESHA Castillo 05/20/23 20:56 HPI - Female Genitourinary 2 General: Chief complaint: Urogenital-Female Stated complaint: bladder problems Time Seen by Provider: 05/20/23 16:55 Source: patient and family Mode of arrival: ambulatory Limitations: no limitations History of Present Illness: Patient is a 77-year-old female with history of recurrent UTI who presents to the emergency department complaining of worsening suprapubic pain. Patient notes that since December she has had recurrent UTIs in which she has been treated with multiple different antibiotics. She used to see Dr. Springer who treated her recurrent UTIs, but has since been following up in [place]. She currently is on amoxicillin for urinary tract infection, but notes that she is getting steadily weaker and her pain in her abdomen is worsening. She notes dysuria and states that she passes clumps when she urinates. She also is noting some incontinence with urine. She notes that her pain is worsened when she is voiding, but she now can feel it at all times whereas before it was only when she urinates. Patient says that she was due for a CT in March, but never was called and the CT was never taken. She does report that she is due for a urology appointment in June, but the pain and urinary symptoms are getting too severe to handle at home. She notes some associated fatigue, chills, and blood in her urine. Additionally, she notes that she has not had an appetite and has been steadily losing weight. She denies any fevers, breathing difficulties, chest pains or palpitations. Patient comments that last year she was diagnosed with a prolapsed bladder, however she has never had a cystourethrogram or any other instrumental evaluation of her bladder. MD elicited complaint: dysuria, UTI , pelvic pain, urinary incontinence and difficulty urinating Pertinent past history: recurrent UTIs Onset (ago): month(s) Location of symptoms: suprapubic Severity: moderate Consistency: progressively worsening Vaginal discharge: none Vaginal bleeding: none Urinary symptoms: Difficulty Urinating, Dysuria and Hematuria Exacerbating factors: urination Relieving factors: none Associated symptoms: Reports abdominal pain (Suprapubic); Deny headache(s) or nausea Treatment prior to arrival: other (Antibiotics) Sexual activity: No Patient : No Review of Systems 2 General: Reports: 10 or more systems reviewed and unremarkable except in HPI and below Const: Reports: chills, change in appetite, change in weight and fatigue; Denies: fever(s) or diaphoresis ENMT: Denies: throat pain or hoarseness Card: Denies: chest pain, palpitations or lightheadedness Resp: Denies: dyspnea, productive cough or wheezing GI: Reports: abdominal pain (Suprapubic); Denies: nausea, vomiting, diarrhea, constipation, bloating, change in stool character or hematochezia : Reports: difficulty voiding, dysuria, urinary incontinence, hematuria and pelvic pain; Denies: flank pain, urinary frequency or urinary urgency Musc: Denies: neck pain or back pain Skin/Breast: Denies: rash or new lesions Neuro: Reports: weakness in extremities; Denies: headache(s) or dizziness PFSH ED 2 PFSH: Medical History Greater trochanteric bursitis of right hip Lumbago with sciatica, right side Thoracic radiculopathy due to osteoarthritis of spine Urinary incontinence Painful orthopaedic hardware Acute blood loss as cause of postoperative anemia Recurrent UTI Lumbar stenosis with neurogenic claudication Dysphagia Squamous cell carcinoma of right lower leg Surgical History History of shoulder surgery Hx of bladder repair surgery bladder tied History of total right knee replacement S/P spinal fusion Status post laparoscopic cholecystectomy Status post colonoscopy H/O esophagogastroduodenoscopy (01/13/20) History of hysterectomy for indication other than cancer H/O right knee surgery S/P foot surgery, left H/O knee surgery Family History Mother , AT AGE 91 Stroke Father , at age 87 No problems noted. Social History Smoking and tobacco/nicotine status: former use of tobacco/nicotine Second hand smoke exposure: No Alcohol intake: never Substance/Drug Use: never Lives independently: Yes Household members: spouse Marital status: Current occupational status: retired Physical Exam 2 Const: COMMON NORMALS: no acute distress, average body habitus, patient oriented x3, no limitations, healthy appearing, alert and well nourished G ENERAL APPEARANCE: cooperative and comfortable ORIENTATION/CONSCIOUSNESS: Yes awake HENMT: COMMON NORMALS: normocephalic, atraumatic, hearing grossly normal bilaterally, external ears normal, Normal external nose present, Normal nasal mucous membranes and turbinates present and moist oral mucous membranes HEAD & SCALP: normocephalic and atraumatic NOSE: Normal external nose present and Normal nasal mucous membranes and turbinates present EXTERNAL EAR: Yes external ears normal Eye: COMMON NORMALS: Equal, round and reactive pupils present, EOMs intact bilaterally, conjunctivae normal and normal visual price by confrontation C ONJUNCTIVA: Yes conjunctivae normal PUPIL: Yes Equal, round and reactive pupils present Neck/C-Spine: COMMON NORMALS: full ROM, supple, no meningeal signs and no JVD Resp: COMMON NORMALS: normal respiratory effort, No retractions, No use of accessory muscles and clear to auscultation bilaterally AUSCULTATION: clear to auscultation bilaterally, no crackles, no rales, no rhonchi and no wheezes Cardio: COMMON NORMALS: no JVD, regular rate, regular rhythm, S1 normal heart sound present, S2 normal heart sound present, No gallops present (Cardio), No clicks present (Cardio), No murmurs present (Cardio), No rub (Cardio) and Peripheral pulses 2+ throughout RATE: regular rate RHYTHM: regular rhythm HEART SOUNDS: S1 normal heart sound present and S2 normal heart sound present PERIPHERAL PULSES: Peripheral pulses 2+ throughout GI: COMMON NORMALS: Normal to inspection, nondistended, normoactive bowel sounds present, Soft to palpation, non-tender, No hepatosplenomegaly present and no masses AUSCULTATION: Yes normoactive bowel sounds PALPATION: Yes Soft to palpation, No Guarding due to palpation present (GI), No Rigid due to palpation, Yes No hepatosplenomegaly present and Yes Bladder palpation abnormal RECTAL EXAM: deferred : COMMON NORMALS: Yes no CVA tenderness BLADDER/KIDNEY EXAM: Yes no CVA tenderness and Yes Bladder palpation abnormal Bladder abnormal details: tender and distended midway to the umbilicus Back/Pelvis: COMMON NORMALS: no CVA tenderness Extremity: COMMON NORMALS: normal to inspection and full ROM Neuro: COMMON NORMALS: patient oriented x3, moves all extremities, no focal motor deficits and no sensory deficits noted SENSORIUM/ORIENTATION: Yes alert MENINGEAL SIGNS: Yes no meningeal signs Psych: COMMON NORMALS: mental status grossly normal, cooperative and speech normal SPEECH: Yes normal speech Skin: COMMON NORMALS: no rashes or lesions noted GENERAL SKIN EXAM: no rashes or lesions noted Course 2 Vital Signs: Vital signs: Vital Signs Temperature 98.2 F 05/20/23 16:37 Pulse Rate 82 05/21/23 03:38 Respiratory Rate 18 05/21/23 00:51 Blood Pressure 107/59 05/21/23 00:51 Pulse Oximetry 94 05/21/23 03:38 Oxygen Delivery Me thod Room Air 05/21/23 03:38 MDM - Female Medical Decision Making This patient was evaluated in the emergency department today for increasing suprapubic abdominal pain associated with recurrent UTIs. On arrival patient nontoxic-appearing with unremarkable vitals. Examination positive for some reproducible suprapubic tenderness to palpation, with palpable bladder. CBC showed signs of decreased hemoglobin, but otherwise unremarkable. CMP additionally is unremarkable. Urine showed expected signs of residual infection as she is currently on amoxicillin. CT obtained showed necrotic mass in the bladder extending into the lumen, as well as into an adjacent loop of small bowel, consistent with neoplasm. I consulted with Dr. Khan, urologist at [facility] who will consult the patient and recommends transfer. Subsequently spoke with Dr. Ordonez, hospitalist, who accepts patient for transfer and has no other recommendations at this time. Informed patient and family of CT findings and plan to transfer to [facility] for urology consultation. They agree with this plan. Patient awaiting transfer by ambulance. Chart reviewed Medical Records I reviewed the patient's medical records. Lab Data I reviewed the patient's lab results. 05/20/23 17:54 05/20/23 17:54 Radiology Impressions Abdomen/Pelvis CT 05/20/23 17:13 IMPRESSION: There is a large lobulated centrally necrotic mass in the dome of the bladder extending into the lumen of the bladder measuring at least 9.2 x 6.8 x 4.8 cm and extending into an adjacent loop small bowel on (series 4, image 64 through 68). This is consistent with neoplasm. An enterovesical fistula is not excluded. Laboratory Results WBC 9.59 10^3/uL (3.29-11.43) 05/20/23 17:54 RBC 3.37 10^6/uL (3.85-5.65) L 05/20/23 17:54 Hgb 10.00 g/dL (11.27-16.99) L 05/20/23 17:54 Hct 32.5 % (36-47) L 05/20/23 17:54 MCV 96.4 fl (85-98) 05/20/23 17:54 MCH 29.7 pg (27-33) 05/20/23 17:54 MCHC 30.8 g/dL (30-55) 05/20/23 17:54 RDW 14.6 % (12.1-15.1) 05/20/23 17:54 Plt Count 489 10^3/cmm (157-399) H 05/20/23 17:54 MPV 8.4 fL (7.4-10.4) 05/20/23 17:54 Neut % (Auto) 71.8 % 05/20/23 17:54 Lymph % (Auto) 17.9 % 05/20/23 17:54 [place] % (Auto) 6.3 % 05/20/23 17:54 Eos % (Auto) 2.6 % 05/20/23 17:54 Baso % (Auto) 1.0 % 05/20/23 17:54 Neut # (Auto) 6.88 10^3/uL (1.8-7.7) 05/20/23 17:54 Lymph # (Auto) 1.7 10^3/uL (0.8-4.8) 05/20/23 17:54 [place] # (Auto) 0.6 10^3/uL (0.2-0.9) 05/20/23 17:54 Eos # (Auto) 0.3 10^3/uL (0.0-0.8) 05/20/23 17:54 Baso # (Auto) 0.1 10^3/uL (0.0-0.1) 05/20/23 17:54 Nucleated RBC % (auto) 0 % 05/20/23 17:54 Nucleated RBCs # 0.0 /100WBC 05/20/23 17:54 Sodium 139 mmol/L (136-145) 05/20/23 17:54 Potassium 3.9 mmol/L (3.5-5.1) 05/20/23 17:54 Chloride 101 mmol/L (98-107) 05/20/23 17:54 Carbon Dioxide 29 mmol/L (22-29) 05/20/23 17:54 Anion Gap 12.9 (5-19) 05/20/23 17:54 BUN 9 mg/dL (8-23) 05/20/23 17:54 Creatinine 0.5 mg/dL (0.5-0.9) 05/20/23 17:54 GFR Calculation Not Reportable 05/20/23 17:54 Glucose 77 mg/dL (65-115) 05/20/23 17:54 Calculated Osmolality 285 mOsm/kg (285-295) 05/20/23 17:54 Calcium 9.1 mg/dL (8.5-10.5) 05/20/23 17:54 Total Bilirubin 0.2 mg/dL (0.15-1.2) 05/20/23 17:54 AST 22 U/L (0-32) 05/20/23 17:54 ALT 7 U/L (0-33) 05/20/23 17:54 Alkaline Phosphatase 125 U/L (35-105) H 05/20/23 17:54 Total Protein 6.9 g/dL (6.6-8.7) 05/20/23 17:54 Albumin 3.0 g/dL (3.5-5.2) L 05/20/23 17:54 Globulin 3.9 g/dL (1.3-4.6) 05/20/23 17:54 Urine Color Yellow (Yellow) 05/20/23 17:04 Urine Appearance Sl cloudy (CLEAR) A 05/20/23 17:04 Urine pH 7 (5-7) 05/20/23 17:04 Ur Specific Smiley 1.010 (1.005-1.030) 05/20/23 17:04 Urine Protein 2+ (Negative) H 05/20/23 17:04 Urine Glucose (UA) Norm (Normal) 05/20/23 17:04 Urine Ketones Negative (Negative) 05/20/23 17:04 Urine Blood 3+ (Negative) H 05/20/23 17:04 Urine Nitrate Negative (Negative) 05/20/23 17:04 Urine Bilirubin Neg (Negative) 05/20/23 17:04 Urine Urobilinogen Norm mg/dL (Negative) 05/20/23 17:04 Ur Leukocyte Esterase 2+ (Negative) H 05/20/23 17:04 Urine RBC 5-10 /hpf (0-2) H 05/20/23 17:04 Urine WBC 15-25 /hpf (0-5) H 05/20/23 17:04 Ur Squamous Epith Cells 10-15 /hpf (0-5) H 05/20/23 17:04 Triple Phos Crystals 0-4 /hpf H 05/20/23 17:04 Amorphous Sediment 2+ /hpf 05/20/23 17:04 Urine Bacteria 2+ /hpf (NONE) H 05/20/23 17:04 All radiology interpretation(s) finalized by discharge EKG Data EKG 1: EKG Data: 05/20/23 EKG interpretation time: 17:24 Prior EKG tracings: available for review Interpretation: EKG reviewed by me. Normal sinus rhythm. Rate 89. Normal axis. Normal intervals. No acute ST segment changes. No significant change from previous on 11/13/2022. Discharge Plan Discharge Patient Disposition: Xfer Short-Term Hosp Clinical Impression: Bladder neoplasm, Recurrent UTI Condition: Stable Referrals: Pato Coelho MD [Primary Care Provider] - Coding Level of Care Code ED Distilling Department Supervisor for Chg Fwd Documented by User: Geoff Moore DO 05/21/23 04:57 HPI - Female Genitourinary 2 General: Chief complaint: Urogenital-Female Stated complaint: bladder problems Time Seen by Provider: 05/20/23 16:55 PFSH ED 2 PFSH: Medical History Greater trochanteric bursitis of right hip Lumbago with sciatica, right side Thoracic radiculopathy due to osteoarthritis of spine Urinary incontinence Painful orthopaedic hardware Acute blood loss as cause of postoperative anemia Recurrent UTI Lumbar stenosis with neurogenic claudication Dysphagia Squamous cell carcinoma of right lower leg Surgical History History of shoulder surgery Hx of bladder repair surgery bladder tied History of total right knee replacement S/P spinal fusion Status post laparoscopic cholecystectomy Status post colonoscopy H/O esophagogastroduodenoscopy (01/13/20) History of hysterectomy for indication other than cancer H/O right knee surgery S/P foot surgery, left H/O knee surgery Family History Mother , AT AGE 91 Stroke Father , at age 87 No problems noted. Social History Smoking and tobacco/nicotine status: former use of tobacco/nicotine Second hand smoke exposure: No Alcohol intake: never Substance/Drug Use: never Lives independently: Yes Household members: spouse Marital status: Current occupational status: retired Course 2 Vital Signs: Vital signs: Vital Signs Temperature 98.2 F 05/20/23 16:37 Pulse Rate 82 05/21/23 03:38 Respiratory Rate 18 05/21/23 00:51 Blood Pressure 107/59 05/21/23 00:51 Pulse Oximetry 94 05/21/23 03:38 Oxygen Delivery Me thod Room Air 05/21/23 03:38 MDM - Female Medical Decision Making Chart reviewed Lab Data 05/20/23 17:54 05/20/23 17:54 Radiology Impressions Abdomen/Pelvis CT 05/20/23 17:13 IMPRESSION: There is a large lobulated centrally necrotic mass in the dome of the bladder extending into the lumen of the bladder measuring at least 9.2 x 6.8 x 4.8 cm and extending into an adjacent loop small bowel on (series 4, image 64 through 68). This is consistent with neoplasm. An enterovesical fistula is not excluded. Laboratory Results WBC 9.59 10^3/uL (3.29-11.43) 05/20/23 17:54 RBC 3.37 10^6/uL (3.85-5.65) L 05/20/23 17:54 Hgb 10.00 g/dL (11.27-16.99) L 05/20/23 17:54 Hct 32.5 % (36-47) L 05/20/23 17:54 MCV 96.4 fl (85-98) 05/20/23 17:54 MCH 29.7 pg (27-33) 05/20/23 17:54 MCHC 30.8 g/dL (30-55) 05/20/23 17:54 RDW 14.6 % (12.1-15.1) 05/20/23 17:54 Plt Count 489 10^3/cmm (157-399) H 05/20/23 17:54 MPV 8.4 fL (7.4-10.4) 05/20/23 17:54 Neut % (Auto) 71.8 % 05/20/23 17:54 Lymph % (Auto) 17.9 % 05/20/23 17:54 [place] % (Auto) 6.3 % 05/20/23 17:54 Eos % (Auto) 2.6 % 05/20/23 17:54 Baso % (Auto) 1.0 % 05/20/23 17:54 Neut # (Auto) 6.88 10^3/uL (1.8-7.7) 05/20/23 17:54 Lymph # (Auto) 1.7 10^3/uL (0.8-4.8) 05/20/23 17:54 [place] # (Auto) 0.6 10^3/uL (0.2-0.9) 05/20/23 17:54 Eos # (Auto) 0.3 10^3/uL (0.0-0.8) 05/20/23 17:54 Baso # (Auto) 0.1 10^3/uL (0.0-0.1) 05/20/23 17:54 Nucleated RBC % (auto) 0 % 05/20/23 17:54 Nucleated RBCs # 0.0 /100WBC 05/20/23 17:54 Sodium 139 mmol/L (136-145) 05/20/23 17:54 Potassium 3.9 mmol/L (3.5-5.1) 05/20/23 17:54 Chloride 101 mmol/L (98-107) 05/20/23 17:54 Carbon Dioxide 29 mmol/L (22-29) 05/20/23 17:54 Anion Gap 12.9 (5-19) 05/20/23 17:54 BUN 9 mg/dL (8-23) 05/20/23 17:54 Creatinine 0.5 mg/dL (0.5-0.9) 05/20/23 17:54 GFR Calculation Not Reportable 05/20/23 17:54 Glucose 77 mg/dL (65-115) 05/20/23 17:54 Calculated Osmolality 285 mOsm/kg (285-295) 05/20/23 17:54 Calcium 9.1 mg/dL (8.5-10.5) 05/20/23 17:54 Total Bilirubin 0.2 mg/dL (0.15-1.2) 05/20/23 17:54 AST 22 U/L (0-32) 05/20/23 17:54 ALT 7 U/L (0-33) 05/20/23 17:54 Alkaline Phosphatase 125 U/L (35-105) H 05/20/23 17:54 Total Protein 6.9 g/dL (6.6-8.7) 05/20/23 17:54 Albumin 3.0 g/dL (3.5-5.2) L 05/20/23 17:54 Globulin 3.9 g/dL (1.3-4.6) 05/20/23 17:54 Urine Color Yellow (Yellow) 05/20/23 17:04 Urine Appearance Sl cloudy (CLEAR) A 05/20/23 17:04 Urine pH 7 (5-7) 05/20/23 17:04 Ur Specific [place] 1.010 (1.005-1.030) 05/20/23 17:04 Urine Protein 2+ (Negative) H 05/20/23 17:04 Urine Glucose (UA) Norm (Normal) 05/20/23 17:04 Urine Ketones Negative (Negative) 05/20/23 17:04 Urine Blood 3+ (Negative) H 05/20/23 17:04 Urine Nitrate Negative (Negative) 05/20/23 17:04 Urine Bilirubin Neg (Negative) 05/20/23 17:04 Urine Urobilinogen Norm mg/dL (Negative) 05/20/23 17:04 Ur Leukocyte Esterase 2+ (Negative) H 05/20/23 17:04 Urine RBC 5-10 /hpf (0-2) H 05/20/23 17:04 Urine WBC 15-25 /hpf (0-5) H 05/20/23 17:04 Ur Squamous Epith Cells 10-15 /hpf (0-5) H 05/20/23 17:04 Triple Phos Crystals 0-4 /hpf H 05/20/23 17:04 Amorphous Sediment 2+ /hpf 05/20/23 17:04 Urine Bacteria 2+ /hpf (NONE) H 05/20/23 17:04 Discharge Plan Discharge Patient Disposition: Xfer Short-Term Hosp Clinical Impression: Bladder neoplasm, Recurrent UTI Condition: Stable Referrals: Pato Coelho MD [Primary Care Provider] - Coding Level of Care Code ED Distilling Department Supervisor for Chg Nick
--- NOTE | 2023-05-20 17:13 | CTR_ITS ---
PROCEDURE INFORMATION: Exam: CT Abdomen And Pelvis With Contrast Exam date and time: 05/20/2023 6:29 PM Age: 77 years old Clinical indication: Abdominal pain; Other: Worsening suprapubic pain; Prior surgery; Surgery date: 6+ months; Surgery type: Hyst, elliot TECHNIQUE: Imaging protocol: Computed tomography of the abdomen and pelvis with contrast. Radiation optimization: All CT scans at this facility use at least one of these dose optimization techniques: automated exposure control; mA and/or kV adjustment per patient size (includes targeted exams where dose is matched to clinical indication); or iterative reconstruction. Contrast material: OMNI 350; Contrast volume: 100 ml; Contrast route: INTRAVENOUS (IV); COMPARISON: CT pelvis wo con [id number] 07/20/2021 12:56 PM RADIATION DOSE METRICS: Total DLP (mGy-cm): 1028.63 FINDINGS: Liver: Normal. No mass. Gallbladder and bile ducts: Normal. No calcified stones. No ductal dilation. Pancreas: Normal. No ductal dilation. Spleen: Normal. No splenomegaly. Adrenal glands: Normal. No mass. Kidneys and ureters: Normal. No hydronephrosis. Stomach and bowel: Large diaphragmatic hernia containing the entire stomach and multiple nonobstructed loops of bowel. Appendix: The appendix is not visualized but there are no secondary signs of acute appendicitis. Intraperitoneal space: Unremarkable. No free air. No significant fluid collection. Vasculature: Unremarkable. No abdominal aortic aneurysm. Lymph nodes: Unremarkable. No enlarged lymph nodes. Urinary bladder: There is a large lobulated centrally necrotic mass in the dome of the bladder extending into the lumen of the bladder measuring at least 9.2 x 6.8 x 4.8 cm and extending into an adjacent loop small bowel on (series 4, image 64 through 68). This is consistent with neoplasm. Reproductive: Unremarkable as visualized. Bones/joints: Partially visualized intramedullary kacey in the proximal right femur within proximal interlocking screw. No evidence of hardware failure or loosening. Interval posterior fusion extending from the lower thoracic spine through the lumbar spine and proximal sacrum without evidence of hardware failure or loosening. Extensive sclerotic changes surrounding the left and right SI joints with progressive erosive changes in the right and left SI joints. Soft tissues: Unremarkable. CT/CT abdomen pelvis w con* [id number] IMPRESSION: There is a large lobulated centrally necrotic mass in the dome of the bladder extending into the lumen of the bladder measuring at least 9.2 x 6.8 x 4.8 cm and extending into an adjacent loop small bowel on (series 4, image 64 through 68). This is consistent with neoplasm. An enterovesical fistula is not excluded.
--- NOTE | 2023-05-20 17:22 | ECG_ITS ---
[facility] Test Date: 2023-05-20 Pat Name: Josephine Ellis Department: Room: Gender: Female Clinical Trials Specialist: : 1945 Requested By: Altaf Holland Order Number: [id number] Hannah MD: Sandor Kumar M.D. Measurements Intervals [place] Rate: 89 P: 34 AK: 167 QRS: 13 QRSD: 90 T: 57 QT: 336 QTc: 409 Interpretive Statements SINUS RHYTHM Compared to ECG 11/13/2022 16:27:36 Sinus arrhythmia no longer present Electronically Signed On 05-20-2023 21:52:24 CDT by Sandor Kumar M.D. [id number]
[2023-05-20] MEDS: sodium chloride 0.9% 1,000 ML 999 ML IV (17:49)
[2023-05-20 18:07] LABS: Basophils # 0.1 10^3/uL (0.0-0.1); Eosinophils # 0.3 10^3/uL (0.0-0.8); Eosinophils % 2.6 %; Hematocrit 32.5 % (36-47); Lymphocytes # 1.7 10^3/uL (0.8-4.8); Lymphocytes % 17.9 %; Mean Corpuscular HGB Conc 30.8 g/dL (30-55); Mean Corpuscular Hemoglobin 29.7 pg (27-33); Mean Corpuscular Volume 96.4 fl (85-98); Mean Platelet Volume 8.4 fL (7.4-10.4); Monocytes # 0.6 10^3/uL (0.2-0.9); Monocytes % 6.3 %; Neutrophils # 6.88 10^3/uL (1.8-7.7); Neutrophils % 71.8 %; Nucleated Red Blood Cells % 0 %; Platelet Count 489 10^3/cmm (157-399); Red Blood Count 3.37 10^6/uL (3.85-5.65); Red Cell Distribution Width 14.6 % (12.1-15.1); White Blood Count 9.59 10^3/uL (3.29-11.43)
[2023-05-20 18:19] LABS: Alanine Aminotransferase 7 U/L (0-33); Alkaline Phosphatase 125 U/L (35-105); Aspartate Amino Transferase 22 U/L (0-32); Blood Urea Nitrogen 9 mg/dL (8-23); Calcium 9.1 mg/dL (8.5-10.5); Carbon Dioxide 29 mmol/L (22-29); Chloride 101 mmol/L (98-107); Creatinine Clr Calc Pharmacy 58.0029; Globulin 3.9 g/dL (1.3-4.6); Glucose 77 mg/dL (65-115); Osmolality Calculated 285 mOsm/kg (285-295); Sodium 139 mmol/L (136-145); Total Bilirubin 0.2 mg/dL (0.15-1.2); Total Protein 6.9 g/dL (6.6-8.7)
[2023-05-20] MEDS: iohexol 350 mg/mL 500 mL Btl (per mL) IV (18:30)
[2023-05-20 18:35] LABS: Urine Color Yellow (Yellow)
[2023-05-20 18:36] LABS: Add Urine Microscopic? YES; Bacteria Urine 2+ /hpf; Bilirubin Urine Neg (Negative); Blood Urine 3+ (Negative); Glucose Urine UA Norm (Normal); Ketones Urine Negative (Negative); Leukocyte Esterase Urine 2+ (Negative); Nitrate Urine Negative (Negative); Protein Urine 2+ (Negative); Urobilinogen Urine Norm (Negative); WBC Urine 15-25 /hpf (0-5); pH Urine 7 (5-7)
[2023-05-20 18:37] LABS: Add Urine Culture? No; Amorphous Sediment Urine 2+ /hpf; Triple Phosphate Crystal Urine 0-4 /hpf
[2023-05-20 18:42] LABS: Anion Gap 12.9 (5-19); Potassium 3.9 mmol/L (3.5-5.1)
--- NOTE | 2023-05-20 22:32 | PC.NURSE ---
family and pt updated on transfer delay. pt requested food and ED PA gave the ok to eat and drink until midnight. pt was given a sandwich, pudding, jello, and a sprite zero at this time
[2023-05-21 00:51] VITALS: BP 107/59; PULSE 91; RESP 18; O2SAT 99
[2023-05-21 03:38] VITALS: PULSE 82; O2SAT 94
[2023-05-21 05:33] VITALS: PULSE 107; O2SAT 95
[2023-05-21 08:05] VITALS: RESP 18; O2SAT 99
[2023-05-21 13:14] VITALS: BP 106/51; PULSE 85; O2SAT 93
--- NOTE | 2023-05-21 14:30 | PC.NURSE ---
Resting in bed with eyes closed, respirations even and nonlabored
--- NOTE | 2023-05-21 15:18 | PC.NURSE ---
Pt ambulated to the bathroom with her cane, tolerated well. Non-slip socks provided. Pt sitting up in chair, denies other needs at this time. Male visitor in room
[2023-05-21 17:00] VITALS: BP 109/71; PULSE 86; O2SAT 96
[2023-05-21] MEDS: meclizine 25 mg tablet 50 MG PO (17:21)
== END 2023-05-21 17:39 | disposition short-term general hospital (02) ==
PROVIDERS: Emergency Medicine; Emergency Provider Physician Assistant; PCP Family Medicine
DX: N39.0 Urinary tract infection, site not specified (principal); Z87.440 Personal history of urinary (tract) infections; D49.4 Neoplasm of unspecified behavior of bladder; Z87.891 Personal history of nicotine dependence
CPT/HCPCS: 36415; 51702; 74177; 80053; 81001; 85025; 93005; 99285; J7030; J8597; Q9967

== ENCOUNTER 2023-06-04 08:12 | Oncology outpatient (recurring) (ONCR) | payer MEDICARE, OTHER, SELFPAY | END 2023-06-25 23:59 | disposition home or self-care (01) | PROVIDERS: PCP Family Medicine; Visit Provider Internal Medicine | DX: C67.9 Malignant neoplasm of bladder, unspecified (principal); D64.9 Anemia, unspecified | CPT/HCPCS: 36415; 99205 ==

== ENCOUNTER → 2023-06-19 09:32 | Outpatient (BNVA) | payer MEDICARE, SELFPAY | PROVIDERS: PCP Family Medicine; Referring Provider Internal Medicine; Visit Provider Surgery | DX: C67.9 Malignant neoplasm of bladder, unspecified (principal); Z95.828 Presence of other vascular implants and grafts | CPT/HCPCS: 99204 ==

== ENCOUNTER 2023-06-21 08:22 | Day surgery (SDC) | payer MEDICARE, SELFPAY ==
[2023-06-21] VITALS (12 sets, daily range): BP systolic 105–136; BP diastolic 56–88; PULSE 84–114; RESP 18; TEMP 36.4–36.7; O2SAT 90–98; BMI 28.3
--- NOTE | 2023-06-21 08:27 | SC_ITS ---
WS: [id number] C-ARM RADIOGRAPHS CHEST; 2 IMAGES HISTORY: For port placement COMPARISON: None available. Intraoperative imaging during LEFT subclavian Mediport placement. The actual tip is not visualized we ll by fluoroscopy. IMPRESSION: Intraoperative imaging during LEFT Mediport placement.
--- NOTE | 2023-06-21 09:13 | P.HPUD_ITS ---
Surgery/Procedure H&P Update DATE OF PROCEDURE: June 21, 2023 DATE H&P PERFORMED: 06/19/23 H&P UPDATE INFORMATION: I have reviewed H&P completed within last 30 days, I have examined patient prior to procedure, No changes to prior documentation and H&P is in [facility] [facility] EMR on date indicated PLANNED PROCEDURE: Operation Date: 06/21/23 10:00 Proposed Procedures p Portacath Placement [id number]: C67.9(Not Applicable) - Altaf German MD
--- NOTE | 2023-06-21 09:13 | W.PM.OPSUD ---
Surgery/Procedure H&P Update DATE OF PROCEDURE: June 21, 2023 DATE H&P PERFORMED: 06/19/23 H&P UPDATE INFORMATION: I have reviewed H&P completed within last 30 days, I have examined patient prior to procedure, No changes to prior documentation and H&P is in [facility] EMR on date indicated PLANNED PROCEDURE: Operation Date: 06/21/23 10:00 Proposed Procedures p Portacath Placement [id number]: C67.9(Not Applicable) - Altaf German MD
[2023-06-21] MEDS: sodium chloride 0.9% 1,000 ML 30 ML IV (09:15)
--- NOTE | 2023-06-21 09:34 | ANES.PREANE2 ---
Pre-Anesthetic Assessment Height/Weight: Height 1.6 m Weight 72.575 kg Temp Pulse Resp BP Pulse Ox O2 Del Method 98.0 F 84 18 136/75 98 Room Air 06/21/23 08:46 06/21/23 08:46 06/21/23 08:46 06/21/23 08:46 06/21/23 08:46 06/21/23 08:46 Operation Date: 06/21/23 10:00 Proposed Procedures p Portacath Placement 70480: C67.9(Not Applicable) - Altaf German MD Familial anesthetic complications: None Was Beta Michelle taken within 24 hours: N/A Was Clonidine taken within 24 hours: N/A Last intake: Intake Last Liquid Date 06/20/23 Last Liquid Time 23:55 Last Solid Date 06/20/23 Last Solid Time 18:00 Social No alcohol and No tobacco Exam alert, oriented x 3, clear to auscultation bilaterally and regular rate & rhythm Airway Mallampati: Class I Dentition: full CV/HEM Anemia Anesthetic Plan ASA status: 3 Anesthesia: MAC Risk of > 500 ml blood loss (7ml/kg in children): No Medications/Allergies Home Medications Medication Instructions Recorded Confirmed Last Taken Type ascorbic acid (vitamin C) 500 mg 1,000 mg PO DAILY 02/26/19 06/21/23 06/20/23 History capsule vitamin B complex (B 1 tab PO DAILY 02/11/20 06/21/23 06/20/23 History Complex-Vitamin B12 tablet) biotin 5 mg capsule 5 mg PO DAILY 04/03/21 06/21/23 06/20/23 History TLSO Brace #1 ea 06/05/22 06/19/23 Unknown Rx calcium carbonate 500 mg PO DAILY 05/21/23 06/21/23 06/20/23 History multivitamin 1 tab PO DAILY 05/21/23 06/21/23 06/20/23 History Allergies Allergy/AdvReac Type Severity Reaction Status Date / Time ketorolac [From Toradol] Allergy Unknown Unknown Verified 06/20/23 13:49 oxycodone [From Percocet] Allergy Unknown Unknown Verified 06/20/23 13:49 Current Medications Generic Name Dose Route Start Last Admin Trade Name Freq PRN Reason Stop Dose Admin Sodium Chloride 1,000 mls @ 30 mls/hr 06/21/23 08:00 06/21/23 09:15 Sodium Chloride 0.9% IV 06/22/23 07:59 30 mls/hr .Q24H KARO Administration PFSH Anesthesia Medical History Anemia Urothelial carcinoma of bladder with invasion of muscle Greater trochanteric bursitis of right hip Lumbago with sciatica, right side Thoracic radiculopathy due to osteoarthritis of spine Urinary incontinence Painful orthopaedic hardware Acute blood loss as cause of postoperative anemia Recurrent UTI Lumbar stenosis with neurogenic claudication Dysphagia Squamous cell carcinoma of right lower leg Surgical History History of shoulder surgery Hx of bladder repair surgery bladder tied History of total right knee replacement S/P spinal fusion Status post laparoscopic cholecystectomy Status post colonoscopy H/O esophagogastroduodenoscopy (01/13/20) History of hysterectomy for indication other than cancer H/O right knee surgery S/P foot surgery, left H/O knee surgery Family History Mother , AT AGE 91 Stroke Father , at age 87 No problems noted. Social History Smoking and tobacco/nicotine status: former use of tobacco/nicotine Second hand smoke exposure: No Alcohol intake: never Substance/Drug Use: never Lives independently: Yes Household members: spouse Marital status: Current occupational status: retired Data Anesthesia Cardiac Studies: No Data to Display
[2023-06-21] MEDS: ceFAZolin 2,000 MG in sodium chloride 0.9% (plus) 50 ML 100 MG IV (09:42)
[2023-06-21] MEDS: heparin, porcine 1,000 unit/mL INJ 10 mL 6000 UNIT INJECTION (10:28)
[2023-06-21] MEDS: lidocaine-epi 1% 20 mL INJ INJECTION (10:29)
--- NOTE | 2023-06-21 10:42 | XRR_ITS ---
PROCEDURE INFORMATION: Exam: XR Chest Exam date and time: 06/21/2023 11:05 AM Age: 77 years old Clinical indication: Device placement; Other: Port placement; Prior surgery; Surgery date: Post-operative (0-2 days) TECHNIQUE: Imaging protocol: Radiologic exam of the chest. Views: 1 view. COMPARISON: CR XR ribs LT mn 3V w CXR1V [id number] 01/03/2023 12:06 PM FINDINGS: Tubes, catheters and devices: New left chest port with catheter tunneled into the left internal jugular vein and terminating near the superior cavoatrial junction. Lungs: Unchanged compressive atelectasis in the left lower lung. Otherwise, unremarkable. Pleural spaces: Unremarkable. No pleural effusion. No pneumothorax. Heart/Mediastinum: Unremarkable. No cardiomegaly. Bones/joints: Unchanged mild scoliosis and surgical hardware attached to the spine. Soft tissues: Unchanged large hiatal and left diaphragmatic hernia. XR/XR chest 1V portable [id number] IMPRESSION: 1. No acute disease. 2. Additional details as above.
--- NOTE | 2023-06-21 10:51 | PM.OP ---
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 Procedure done: Insertion of left IJ tunneled port Implants: Bard Port-A-Cath Pathology: none Surgeon: Altaf German MD Barrel Builder: KB OR Staff Estimated blood loss: 10 Complications: none Brief History: 77-year-old female who presented to my clinic for evaluation and placement of Port-A-Cath for management of bladder cancer. After discussion of all risk benefits and documented in my preop note with side to proceed Procedure: Patient was brought into the OR, she was placed in a supine position. Mother anesthesia was given. Bilateral necks with prepped and draped in the usual sterile fashion. Timeout was conducted. I then proceeded to notify the right IJ vein at the level of the neck. There was evidence of aberrant arterial anatomy with an early branch of the carotid artery coming on top of the right IJ vein completely obliterating it distally. Therefore I decided to attempt more proximal access on the middle third of the neck. Identified the vein with ultrasound, injected local anesthesia and then attempted to cannulate the vein with an 18-gauge needle. The vein was unable to be cannulated and I instead cannulated the early branch from the carotid artery. I immediately recognized this with ultrasound and decided to retract the needle. No significant bleeding was noted no significant hematoma formation was noted. Due to these aberrant anatomy and difficulty cannulating the right IJ vein I decided to proceed with a left IJ vein interrogation and approach. I evaluated the left side of the neck at this level the left IJ vein was noted to be of adequate size. Under ultrasound guidance I injected local anesthesia on the tissue on top of the vein. I then proceeded to cannulate the vein using an 18-gauge needle. Immediate cannulation of the vein was achieved, and the wire was advanced. The position of the wire was then verified with ultrasound and subsequently with fluoroscopy. The wire was then clamped to the drapes. I then placed my attention to the left upper chest. On the left upper chest I proceeded to inject local anesthesia and also injected local anesthesia in a tract connecting the left upper chest with the wire insertion site in the neck. A 3.5 cm incision was then made on the left upper chest, the incision was deepened to subcutaneous tissue, I then proceeded to create a subcutaneous pocket with electrocautery., Hemostat was then used to create a tract between the chest wound on the neck at the level of the wire insertion site. I then proceeded to make a 0.5 cm incision at the level of the wire insertion site of the neck and a pocket was created there to allow for advancement of the dilator. I then placed the port in the created pocket in the chest and proceeded to tunneled the catheter from the chest to the neck using the provided pulm alert. Subsequently under fluoroscopic guidance I made sure the catheter and cut it. Under direct fluoroscopic guidance and then proceeded to advance peel-off sheath with an introducer over the wire. The wire and the introducer was then removed leaving the peel-off sheath in place, the catheter was then advanced through the peel-off sheath and subsequently removed leaving the catheter in place. Fluoroscopy verified adequate position of the catheter with the distal tip projecting over the junction of the left brachiocephalic vein and the superior vena cava. The port was accessed was noted to be drawing blood and flushing well, I then hep-locked the catheter. The wounds were closed in layers using #3-0 Vicryl for the subcutaneous tissue and #4 Monocryl for the skin. Dermabond was applied and a compressive dressing was applied. At the end of the procedure all counts were correct, the patient tolerated well the procedure was transferred to the PACU in stable condition.
[2023-06-21] MEDS: meperidine 50 mg/mL INJ 12.5 MG IVP (11:23)
[2023-06-21] MEDS: HYDROcodone-acetaminophen 5-325 mg Tablet 1 TAB PO (12:18)
--- NOTE | 2023-06-21 12:30 | ANE.PACU2 ---
Inpatient post-anesthesia follow up: Airway intact: Yes Vital signs: Temperature 97.6 F Pulse Rate 88 Respiratory Rate 18 Blood Pressure 132/59 Pulse Oximetry 93 Oxygen Delivery Me thod Room Air Oxygen Flow Rate Fraction of Inspir ed Oxygen Hydration adequate: Yes Nausea and vomiting: No Pain level: 1 Mental status: Baseline
== END 2023-06-21 12:31 | disposition home or self-care (01) ==
PROVIDERS: PCP Family Medicine; Visit Provider Surgery
PROC: (CPT 36561; principal; 2023-06-21 10:00)
DX: C67.9 Malignant neoplasm of bladder, unspecified (principal); Z87.891 Personal history of nicotine dependence; Z98.1 Arthrodesis status
CPT/HCPCS: 36561; 71045; 76000; 77001; C1788; J0690; J1644; J2175; J2371; J2704; J3010; J7030

== ENCOUNTER 2023-07-02 09:27 | Outpatient (CLI) | payer MEDICARE, SELFPAY ==
--- NOTE | 2023-07-02 10:00 | PETR_ITS ---
PROCEDURE INFORMATION: Exam: PET/CT Skull Base to Mid-thigh Exam date and time: 07/02/2023 10:13 AM Age: 77 years old Clinical indication: Bladder cancer (invasive high-grade urothelial carcinoma); Initial oncological staging assessment; Prior surgery; Surgery date: 6+ months; Surgery type: Hyst elliot. LABS AND CLINICAL REPORTS: Glucose: 102 mg/dl Treatment strategy for malignancy (PET staging): Initial Staging (PI) TECHNIQUE: Imaging protocol: Following at least four-hour fasting and following the injection of radiopharmaceutical, low dose CT images were obtained. Then, PET images were obtained. Attenuation corrected images were constructed using the CT scan. Fused images of PET and CT were reviewed. The standardized uptake values (SUV) reported below are maximum values within a region of interest, expressed in gm/ml. Exam includes orbital meatal line to mid-thigh. Radiopharmaceutical: 10.78 mCi F-18 FDG (Fluorodeoxyglucose), IV. Time of imaging post radiopharmaceutical administration: 1 hour Injection site: Right antecubital vein COMPARISON: CT abdomen pelvis w con* [id number] 05/20/2023, CT pelvis 07/20/2021 FINDINGS: Tubes, catheters and devices: Port catheter placed via the left internal jugular vein terminates in the superior vena cava. Brain: Visualized brain has normal physiologic uptake. Pharynx: No abnormal uptake. Larynx: No abnormal uptake. Lungs, pleura and trachea: No abnormal uptake. No lung nodules or masses. No pleural effusion. Heart: Normal physiologic uptake. There is no cardiomegaly. Coronary artery calcification is present. There is no pericardial effusion. Mediastinal space: No abnormal uptake. There is large hiatal hernia containing the entire stomach and a segment of descending and transverse colon. Liver: No abnormal uptake. Gallbladder and bile ducts: No abnormal uptake. Status post cholecystectomy pancreas: No abnormal uptake. Pancreas: No abnormal uptake. Spleen: No abnormal uptake. No splenomegaly. Adrenal glands: No abnormal uptake. No nodules. Kidneys and ureters: Normal physiologic uptake. No hydronephrosis. Stomach and bowel: About 3 cm wide malignant mass in the small bowel loop in the pelvis on axial image 175 representing direct extension from the bladder cancer described below measures 8 SUV. No abnormal dilatation of the bowel to suggest obstruction. Mild diverticulosis of the sigmoid colon. Intraperitoneal and retroperitoneal spaces: No abnormal uptake. No ascites. Urinary bladder: Primary bladder tumor noted as a mass at the dome of the bladder with anterior-posterior diameter of about 8.5 cm producing thickening of the wall up to 2.5 cm with the highest uptake of 12.8 SUV. This mass is directly extending into the adjacent loop of small bowel as was proven on contrast enhanced CT on 05/20/2023. There is air and hyperdense material within the bladder in keeping with enterovesical fistula. Reproductive: No abnormal uptake. The uterus is absent post surgically. Vasculature: No abnormal uptake. No aortic aneurysm. Lymph nodes: No abnormal uptake. No lymphadenopathy in the head, neck, chest, abdomen, pelvis, and extremities. Bones/joints: No abnormal uptake in the visualized axial and appendicular skeleton. Irregular shaped linear areas of sclerosis in bilateral humeral heads possibly represents small lesions of a vascular necrosis. There is metallic screw within the right humeral head suggestive of sequela of prior rotator cuff repair surgery. There is exaggerated kyphosis centered in the lower thoracic spine. Status post L4 and L5 posterior laminectomy and T8-S1 fusion with bilateral transpedicular internal fixation. There is internal fixation in the right femoral shaft, neck and head. There is extensive sclerosis on both sides of bilateral sacroiliac joints which are fuse at S2 level by the small fusion screws. There are ghost of longer fusions screws removed from the iliac bones. There is chronic mild diastasis of symphysis pubis. Soft tissues: No abnormal uptake in the visualized head, neck, chest, abdomen, pelvis, and extremities. PET/PET skulltothigh SUBSEQ [id number] IMPRESSION: Locally invasive bladder cancer noted as the bladder dome directly invading into the adjacent small bowel loop with enterovesical fistula. Significant amount of air within the bladder increased since 05/20/2023 and some hyperdense material in the bladder lumen in keeping with persistent/progressive fistula. No FDG avid lymphadenopathy to suggest locoregional metastatic disease. No evidence of distant FDG avid metastatic disease. COMMENT: THIS REPORT CONTAINS FINDINGS THAT MAY BE CRITICAL TO PATIENT CARE. The exam findings were verbally communiated by me to Sarita Collins LPN via telephone conference at 1:55 PM CDT on 07/03/2023. The critical nature of the findings was acknowledged. Sarita Collins LPN indicated that they would relay the critical findings to clinician who is currently unavailable for a phone conversation.
== END 2023-07-02 09:28 | disposition home or self-care (01) ==
LOC: RAD 09:27
PROVIDERS: PCP Family Medicine; Visit Provider Internal Medicine
DX: C67.9 Malignant neoplasm of bladder, unspecified (principal)
CPT/HCPCS: 78815; A9552

== ENCOUNTER → 2023-07-03 10:22 | Outpatient (BNVA) | payer MEDICARE, OTHER, SELFPAY | PROVIDERS: PCP Family Medicine; Visit Provider Surgery | DX: C67.9 Malignant neoplasm of bladder, unspecified (principal) | CPT/HCPCS: 99213 ==

== ENCOUNTER → 2023-09-23 12:29 | Outpatient (BNVA) | payer MEDICARE, SELFPAY | PROVIDERS: PCP Family Medicine; Visit Provider Family Medicine | DX: C67.9 Malignant neoplasm of bladder, unspecified (principal); Z79.899 Other long term (current) drug therapy | CPT/HCPCS: 80053; 85025 ==

== ENCOUNTER 2023-10-08 10:50 | Oncology outpatient (recurring) (ONCR) | payer MEDICARE, SELFPAY | END 2023-10-08 23:59 | disposition home or self-care (01) | PROVIDERS: PCP Family Medicine; Visit Provider Internal Medicine | DX: C67.1 Malignant neoplasm of dome of bladder (principal); D64.9 Anemia, unspecified | CPT/HCPCS: 96523; 99215 ==

== ENCOUNTER 2023-10-17 11:50 | Outpatient (CLI) | payer MEDICARE, SELFPAY ==
--- NOTE | 2023-10-17 11:53 | CT_ITS ---
WS: [id number] CT CHEST, ABDOMEN AND PELVIS WITH CONTRAST HISTORY: BLADDER CANCER TECHNIQUE: Contiguous 5 mm axial imaging performed through the chest, abdomen and pelvis with IV cont rast, oral contrast has been provided. Coronal and sagittal reformats chest. Coronal and sagittal ref ormats through the abdomen and pelvis. All CT scans at [facility] use at least one of these d ose optimization techniques: automated exposure control; mA and/or kV adjustment per patient size (in cludes targeted exams where dose is matched to clinical indication); or iterative reconstruction. CONTRAST: Omnipaque 350; 100 mL IV. DLP: 765.01 mGy.cm COMPARISON: 05/20/2023, 07/20/2021, PET/CT 07/02/[address]: Lungs are mildly hyperinflated. No pulmonary mass or nodule. No pneumonia. There is a singl e enlarged lymph node at the LEFT hilum with a central calcification measuring 11 x 16 mm. This lymph node was also slightly enlarged in 2016 but is increased in size. May be benign or early neoplastic. There are additional smaller mediastinal lymph nodes. LEFT subclavian Mediport. Mild atherosclerosis aorta. Normal size pulmonary artery. Heart remains normal size. Heart is being displaced by the larg e previously described diaphragmatic hernia. The stomach is intrathoracic as is the proximal small dylon wel. No obstruction at the GE junction. Abdomen CT: Liver and spleen are negative. Gallbladder is been surgically removed. Mild atrophy of th e pancreas. No adrenal mass. Moderate atherosclerosis aorta with no aneurysm. Proximal SMA and celiac axis evaluation is limited. There is suboptimal opacification which may be due to through the bolus injection and artifact from extensive spine hardware. Kidneys are mildly atrophied. Small extrarenal pelves. No small bowel obstruction. Surgical anastomotic site near the rectosigmoid junction. Pelvic CT: Since the prior examination patient has undergone a total cystectomy with partial colectom y and partial small bowel resection. There does appear to be a small bowel ileostomy centrally over t he pelvis. No free fluid in the pelvis. No lymphadenopathy is identified. Extensive fusion hardware in the thoracic and lumbar spines. Advanced changes throughout the spine wi th osteopenia. RIGHT hip arthroplasty. No destructive bone lesions are appreciated. Osseous structure s are also negative on recent PET/CT. CT/CT chest abdpel w/*[id number] IMPRESSION: 1. Since the prior examination patient has undergone a total cystectomy with p artial colectomy and partial small bowel resection. 2. No ascites and no adenopathy is identified within the abdomen or pelvis. 3. Large diaphragmatic hernia containing stomach and proximal small bowel is s table over multiple prior years. 4. There is a single mildly prominent LEFT hilar lymph node which has been pre sent on prior studies with only slight increase in size. Central calcifications as this is probably benign. Negative on PET/CT of 07/02/2023.
[2023-10-17] MEDS: iohexol 350 mg/mL 500 mL Btl (per mL) PO (12:19)
[2023-10-17] MEDS: iohexol 350 mg/mL 500 mL Btl (per mL) IV (13:49)
== END 2023-10-17 11:51 | disposition home or self-care (01) ==
LOC: RAD 11:50
PROVIDERS: PCP Family Medicine; Visit Provider Urology
DX: C67.9 Malignant neoplasm of bladder, unspecified (principal); K44.9 Diaphragmatic hernia without obstruction or gangrene; R59.0 Localized enlarged lymph nodes; I70.0 Atherosclerosis of aorta; Z90.6 Acquired absence of other parts of urinary tract; Z90.49 Acquired absence of other specified parts of digestive tract
CPT/HCPCS: 71260; 74177; Q9967

== ENCOUNTER 2023-10-24 07:52 | Oncology outpatient (recurring) (ONCR) | payer MEDICARE, SELFPAY ==
[2023-10-24 08:21] LABS: Basophils # 0.1 10^3/uL (0.0-0.1); Basophils % 2.1 %; Eosinophils # 0.3 10^3/uL (0.0-0.8); Eosinophils % 7.1 %; Hematocrit 32.8 % (36-47); Lymphocytes # 1.3 10^3/uL (0.8-4.8); Lymphocytes % 35.2 %; Mean Corpuscular HGB Conc 30.5 g/dL (30-55); Mean Corpuscular Hemoglobin 30.1 pg (27-33); Mean Corpuscular Volume 98.8 fl (85-98); Mean Platelet Volume 8.7 fL (7.4-10.4); Monocytes # 0.3 10^3/uL (0.2-0.9); Monocytes % 8.7 %; Neutrophils # 1.76 10^3/uL (1.8-7.7); Neutrophils % 46.6 %; Nucleated Red Blood Cells % 0 %; Platelet Count 242 10^3/cmm (157-399); Red Blood Count 3.32 10^6/uL (3.85-5.65); Red Cell Distribution Width 16.3 % (12.1-15.1); White Blood Count 3.78 10^3/uL (3.29-11.43)
[2023-10-24 08:52] LABS: Alanine Aminotransferase 8 U/L (0-33); Albumin Level 3.4 g/dL (3.5-5.2); Alkaline Phosphatase 98 U/L (35-105); Anion Gap 11.7 (5-19); Aspartate Amino Transferase 22 U/L (0-32); Blood Urea Nitrogen 14 mg/dL (8-23); Calcium 8.9 mg/dL (8.5-10.5); Carbon Dioxide 25 mmol/L (22-29); Chloride 106 mmol/L (98-107); Globulin 3.3 g/dL (1.3-4.6); Glucose 95 mg/dL (65-115); Osmolality Calculated 288 mOsm/kg (285-295); Potassium 3.7 mmol/L (3.5-5.1); Sodium 139 mmol/L (136-145); Thyroid Stimulating Hormone 2.61 uIU/mL (0.27-4.20); Total Bilirubin 0.3 mg/dL (0.15-1.2); Total Protein 6.7 g/dL (6.6-8.7)
[2023-10-24 10:37] VITALS: BP 122/52; PULSE 57; RESP 16; TEMP 36.2; O2SAT 97
[2023-10-24] MEDS: nivolumab 240 MG in sodium chloride 0.9% 250 ML 548 MG IV (10:59)
[2023-10-24 11:39] VITALS: BP 109/55; TEMP 36.2
== END 2023-10-26 23:59 | disposition home or self-care (01) ==
PROVIDERS: Internal Medicine Medical Oncology; PCP Family Medicine; Visit Provider Internal Medicine
DX: C67.1 Malignant neoplasm of dome of bladder (principal); D64.9 Anemia, unspecified; Z79.899 Other long term (current) drug therapy; Z51.12 Encounter for antineoplastic immunotherapy
CPT/HCPCS: 80053; 84443; 85025; 96413; 99215; A4222; J7050; J9299

== ENCOUNTER 2023-11-21 15:00 | Oncology outpatient (recurring) (ONCR) | payer MEDICARE, SELFPAY ==
[2023-10-31 11:28] LABS: Basophils # 0.1 10^3/uL (0.0-0.1); Basophils % 1.3 %; Eosinophils # 0.2 10^3/uL (0.0-0.8); Eosinophils % 3.2 %; Hematocrit 32.8 % (36-47); Lymphocytes # 1.2 10^3/uL (0.8-4.8); Lymphocytes % 25.5 %; Mean Corpuscular HGB Conc 30.2 g/dL (30-55); Mean Corpuscular Hemoglobin 29.4 pg (27-33); Mean Corpuscular Volume 97.3 fl (85-98); Mean Platelet Volume 8.7 fL (7.4-10.4); Monocytes # 0.4 10^3/uL (0.2-0.9); Monocytes % 8.6 %; Neutrophils # 2.86 10^3/uL (1.8-7.7); Neutrophils % 61.2 %; Nucleated Red Blood Cells % 0 %; Platelet Count 233 10^3/cmm (157-399); Red Blood Count 3.37 10^6/uL (3.85-5.65); Red Cell Distribution Width 15.6 % (12.1-15.1); White Blood Count 4.67 10^3/uL (3.29-11.43)
[2023-10-31 11:47] LABS: Alanine Aminotransferase 10 U/L (0-33); Albumin Level 3.4 g/dL (3.5-5.2); Alkaline Phosphatase 96 U/L (35-105); Anion Gap 10.9 (5-19); Aspartate Amino Transferase 30 U/L (0-32); Blood Urea Nitrogen 13 mg/dL (8-23); Calcium 8.7 mg/dL (8.5-10.5); Carbon Dioxide 27 mmol/L (22-29); Chloride 105 mmol/L (98-107); Globulin 3.4 g/dL (1.3-4.6); Glucose 103 mg/dL (65-115); Osmolality Calculated 288 mOsm/kg (285-295); Potassium 3.9 mmol/L (3.5-5.1); Sodium 139 mmol/L (136-145); Total Bilirubin 0.2 mg/dL (0.15-1.2); Total Protein 6.8 g/dL (6.6-8.7)
[2023-11-07 10:30] LABS: Basophils # 0.1 10^3/uL (0.0-0.1); Eosinophils # 0.2 10^3/uL (0.0-0.8); Hematocrit 33.3 % (36-47); Lymphocytes # 1.1 10^3/uL (0.8-4.8); Lymphocytes % 26.8 %; Mean Corpuscular HGB Conc 30.6 g/dL (30-55); Mean Corpuscular Hemoglobin 29.5 pg (27-33); Mean Corpuscular Volume 96.2 fl (85-98); Mean Platelet Volume 8.5 fL (7.4-10.4); Monocytes # 0.4 10^3/uL (0.2-0.9); Monocytes % 9.3 %; Neutrophils # 2.31 10^3/uL (1.8-7.7); Neutrophils % 57.6 %; Nucleated Red Blood Cells % 0 %; Platelet Count 316 10^3/cmm (157-399); Red Blood Count 3.46 10^6/uL (3.85-5.65); Red Cell Distribution Width 15.1 % (12.1-15.1)
[2023-11-07 10:54] LABS: Alanine Aminotransferase 13 U/L (0-33); Albumin Level 3.4 g/dL (3.5-5.2); Alkaline Phosphatase 106 U/L (35-105); Anion Gap 11.8 (5-19); Aspartate Amino Transferase 29 U/L (0-32); Blood Urea Nitrogen 17 mg/dL (8-23); Calcium 8.8 mg/dL (8.5-10.5); Carbon Dioxide 27 mmol/L (22-29); Chloride 105 mmol/L (98-107); Globulin 3.5 g/dL (1.3-4.6); Glucose 103 mg/dL (65-115); Osmolality Calculated 292 mOsm/kg (285-295); Potassium 3.8 mmol/L (3.5-5.1); Sodium 140 mmol/L (136-145); Total Bilirubin 0.2 mg/dL (0.15-1.2); Total Protein 6.9 g/dL (6.6-8.7)
[2023-11-07] MEDS: nivolumab 240 MG in sodium chloride 0.9% 250 ML 548 MG IV (12:11)
[2023-11-07 12:54] LABS: Iron 32 ug/dL (37-145); Percent Saturation 16.8 % (20-50); Total Iron Binding Capacity 190 mcg/dl; Unsaturated Iron Binding 158 ug/dL (112-347)
[2023-11-07 12:55] VITALS: BP 133/62; PULSE 75; RESP 16; TEMP 36.6; O2SAT 93
[2023-11-21 15:00] VITALS: BP 110/56; PULSE 74; RESP 16; TEMP 36.7; O2SAT 96
[2023-11-21] MEDS: nivolumab 240 MG in sodium chloride 0.9% 250 ML 548 MG IV (15:13)
[2023-11-21 15:51] VITALS: BP 114/66; PULSE 79; RESP 18; TEMP 36.3; O2SAT 97
== END 2023-11-21 23:59 | disposition home or self-care (01) ==
PROVIDERS: Nurse Practitioner Family; PCP Family Medicine; Visit Provider Internal Medicine Medical Oncology
DX: Z53.9 Procedure and treatment not carried out, unspecified reason (principal); Z51.12 Encounter for antineoplastic immunotherapy; C67.1 Malignant neoplasm of dome of bladder; Z79.899 Other long term (current) drug therapy
CPT/HCPCS: 36591; 80053; 83540; 83550; 85025; 96413; 99214; A4222; J7050; J9299

== ENCOUNTER 2023-11-28 10:39 | Outpatient (RCR) | payer MEDICARE, SELFPAY | END 2023-12-26 23:59 | disposition home or self-care (01) | LOC: SST 10:39 | PROVIDERS: PCP Family Medicine; Visit Provider Plastic Surgery Plastic Surgery Within the Head and Neck | DX: R13.10 Dysphagia, unspecified (principal) | CPT/HCPCS: 92610 ==

== ENCOUNTER 2023-12-19 10:55 | Oncology outpatient (recurring) (ONCR) | payer MEDICARE, SELFPAY ==
[2023-12-05 11:19] LABS: Basophils # 0.1 10^3/uL (0.0-0.1); Basophils % 1.8 %; Eosinophils # 0.2 10^3/uL (0.0-0.8); Eosinophils % 4.6 %; Hematocrit 35.9 % (36-47); Lymphocytes # 1.4 10^3/uL (0.8-4.8); Lymphocytes % 32.9 %; Mean Corpuscular HGB Conc 29.8 g/dL (30-55); Mean Corpuscular Hemoglobin 29.5 pg (27-33); Mean Corpuscular Volume 98.9 fl (85-98); Monocytes # 0.4 10^3/uL (0.2-0.9); Monocytes % 9.4 %; Neutrophils # 2.24 10^3/uL (1.8-7.7); Neutrophils % 51.1 %; Nucleated Red Blood Cells % 0 %; Platelet Count 265 10^3/cmm (157-399); Red Blood Count 3.63 10^6/uL (3.85-5.65); Red Cell Distribution Width 15.4 % (12.1-15.1); White Blood Count 4.38 10^3/uL (3.29-11.43)
[2023-12-05 11:49] LABS: Alanine Aminotransferase 13 U/L (0-33); Albumin Level 3.6 g/dL (3.5-5.2); Alkaline Phosphatase 99 U/L (35-105); Anion Gap 12.2 (5-19); Aspartate Amino Transferase 34 U/L (0-32); Blood Urea Nitrogen 13 mg/dL (8-23); Calcium 8.8 mg/dL (8.5-10.5); Carbon Dioxide 27 mmol/L (22-29); Chloride 106 mmol/L (98-107); Creatinine Clr Calc Pharmacy 56.4249; Globulin 3.7 g/dL (1.3-4.6); Glucose 108 mg/dL (65-115); Osmolality Calculated 293 mOsm/kg (285-295); Potassium 4.2 mmol/L (3.5-5.1); Sodium 141 mmol/L (136-145); Thyroid Stimulating Hormone 1.78 uIU/mL (0.27-4.20); Total Bilirubin 0.3 mg/dL (0.15-1.2); Total Protein 7.3 g/dL (6.6-8.7)
[2023-12-05] MEDS: nivolumab 240 MG in sodium chloride 0.9% 250 ML 548 MG IV (13:16)
[2023-12-05 13:49] VITALS: BP 118/71; PULSE 60; RESP 16; TEMP 36.6; O2SAT 97
[2023-12-19 11:14] LABS: Basophils # 0.1 10^3/uL (0.0-0.1); Eosinophils # 0.1 10^3/uL (0.0-0.8); Eosinophils % 2.9 %; Hematocrit 33.2 % (36-47); Lymphocytes # 1.3 10^3/uL (0.8-4.8); Mean Corpuscular Hemoglobin 29.7 pg (27-33); Mean Corpuscular Volume 95.7 fl (85-98); Mean Platelet Volume 8.7 fL (7.4-10.4); Monocytes # 0.5 10^3/uL (0.2-0.9); Monocytes % 10.8 %; Neutrophils % 54.9 %; Nucleated Red Blood Cells % 0 %; Platelet Count 282 10^3/cmm (157-399); Red Blood Count 3.47 10^6/uL (3.85-5.65); Red Cell Distribution Width 14.8 % (12.1-15.1); White Blood Count 4.55 10^3/uL (3.29-11.43)
[2023-12-19 11:38] LABS: Alanine Aminotransferase 10 U/L (0-33); Albumin Level 3.6 g/dL (3.5-5.2); Alkaline Phosphatase 105 U/L (35-105); Aspartate Amino Transferase 30 U/L (0-32); Blood Urea Nitrogen 15 mg/dL (8-23); Calcium 8.6 mg/dL (8.5-10.5); Carbon Dioxide 25 mmol/L (22-29); Chloride 105 mmol/L (98-107); Creatinine Clr Calc Pharmacy 56.4249; Globulin 3.3 g/dL (1.3-4.6); Glucose 123 mg/dL (65-115); Osmolality Calculated 290 mOsm/kg (285-295); Sodium 139 mmol/L (136-145); Total Bilirubin 0.2 mg/dL (0.15-1.2); Total Protein 6.9 g/dL (6.6-8.7)
[2023-12-19 13:58] LABS: Bilirubin Urine Negative (Negative); Blood Urine Negative (Negative); Glucose Urine UA Negative (Normal); Ketones Urine Negative (Negative); Leukocyte Esterase Urine 2+ (Negative); Nitrate Urine Positive (Negative); Protein Urine 1+ (Negative); Specific Gravity, Urine 1.011 (1.005-1.030); Urine Appearance Turbid (CLEAR); Urine Color Dark Yellow (Yellow); Urobilinogen Urine 0.2 mg/dL (Negative)
[2023-12-19 14:03] LABS: Add Urine Microscopic? YES
[2023-12-19] MEDS: nivolumab 240 MG in sodium chloride 0.9% 250 ML 548 MG IV (14:11)
[2023-12-19 14:31] LABS: UA Manual Slide Review YES; UA Slide Review UA Slide Review Perf
[2023-12-19 14:32] LABS: Add Urine Culture? Yes; Bacteria Urine 4+ /hpf; WBC Urine 51-100 /hpf (0-5)
[2023-12-19] MEDS: flu vacc pf 24-25 (6 mos+) SYRINGE 45 MCG IM (14:53)
[2023-12-19 14:58] VITALS: BP 118/68; PULSE 68; RESP 18; TEMP 36.6; O2SAT 96
== END 2023-12-19 23:59 | disposition home or self-care (01) ==
PROVIDERS: Internal Medicine Medical Oncology; Nurse Practitioner; Nurse Practitioner Family; PCP Family Medicine; Visit Provider Internal Medicine Hematology & Oncology
DX: Z53.9 Procedure and treatment not carried out, unspecified reason; Z51.12 Encounter for antineoplastic immunotherapy; C67.1 Malignant neoplasm of dome of bladder; Z79.899 Other long term (current) drug therapy; C78.4 Secondary malignant neoplasm of small intestine; Z93.6 Other artificial openings of urinary tract status; Z90.6 Acquired absence of other parts of urinary tract; Z79.620 Long term (current) use of immunosuppressive biologic; Z90.49 Acquired absence of other specified parts of digestive tract; Z23 Encounter for immunization; Z95.828 Presence of other vascular implants and grafts; R60.0 Localized edema; R39.89 Other symptoms and signs involving the genitourinary system
CPT/HCPCS: 80053; 81001; 84443; 85025; 87077; 87086; 87186; 90471; 90686; 96413; 99214; A4222; J7050; J9299

== ENCOUNTER → 2024-01-13 15:02 | Outpatient (BNVA) | payer MEDICARE, SELFPAY | PROVIDERS: PCP Family Medicine; Visit Provider Specialist | DX: M70.61 Trochanteric bursitis, right hip (principal); S72.141S Displaced intertrochanteric fracture of right femur, sequela; X58.XXXS Exposure to other specified factors, sequela | CPT/HCPCS: 73502; 99214 ==

== ENCOUNTER 2024-01-16 10:51 | Oncology outpatient (recurring) (ONCR) | payer MEDICARE, SELFPAY ==
[2024-01-02 13:11] LABS: Basophils # 0.1 10^3/uL (0.0-0.1); Eosinophils # 0.1 10^3/uL (0.0-0.8); Eosinophils % 3.2 %; Hematocrit 32.4 % (36-47); Lymphocytes # 1.5 10^3/uL (0.8-4.8); Lymphocytes % 33.6 %; Mean Corpuscular HGB Conc 30.9 g/dL (30-55); Mean Corpuscular Hemoglobin 29.5 pg (27-33); Mean Corpuscular Volume 95.6 fl (85-98); Monocytes # 0.4 10^3/uL (0.2-0.9); Monocytes % 9.8 %; Neutrophils # 2.26 10^3/uL (1.8-7.7); Neutrophils % 51.2 %; Nucleated Red Blood Cells % 0 %; Platelet Count 269 10^3/cmm (157-399); Red Blood Count 3.39 10^6/uL (3.85-5.65); White Blood Count 4.41 10^3/uL (3.29-11.43)
[2024-01-02 13:40] LABS: Alanine Aminotransferase 13 U/L (0-33); Albumin Level 3.5 g/dL (3.5-5.2); Alkaline Phosphatase 97 U/L (35-105); Anion Gap 12.8 (5-19); Aspartate Amino Transferase 31 U/L (0-32); Blood Urea Nitrogen 15 mg/dL (8-23); Calcium 8.6 mg/dL (8.5-10.5); Carbon Dioxide 25 mmol/L (22-29); Chloride 105 mmol/L (98-107); Globulin 3.4 g/dL (1.3-4.6); Glucose 95 mg/dL (65-115); Osmolality Calculated 289 mOsm/kg (285-295); Potassium 3.8 mmol/L (3.5-5.1); Sodium 139 mmol/L (136-145); Thyroid Stimulating Hormone 1.97 uIU/mL (0.27-4.20); Total Bilirubin 0.2 mg/dL (0.15-1.2); Total Protein 6.9 g/dL (6.6-8.7)
[2024-01-02] MEDS: nivolumab 240 MG in sodium chloride 0.9% 250 ML 548 MG IV (14:21)
[2024-01-02 15:04] VITALS: BP 110/54; PULSE 72; RESP 17; TEMP 36.1; O2SAT 95
[2024-01-16 11:44] LABS: Basophils # 0.1 10^3/uL (0.0-0.1); Eosinophils # 0.1 10^3/uL (0.0-0.8); Eosinophils % 2.8 %; Hematocrit 32.4 % (36-47); Lymphocytes # 1.4 10^3/uL (0.8-4.8); Lymphocytes % 29.5 %; Mean Corpuscular HGB Conc 30.6 g/dL (30-55); Mean Corpuscular Hemoglobin 29.7 pg (27-33); Mean Corpuscular Volume 97.3 fl (85-98); Mean Platelet Volume 8.9 fL (7.4-10.4); Monocytes # 0.4 10^3/uL (0.2-0.9); Monocytes % 8.9 %; Neutrophils # 2.61 10^3/uL (1.8-7.7); Neutrophils % 56.6 %; Nucleated Red Blood Cells % 0 %; Platelet Count 213 10^3/cmm (157-399); Red Blood Count 3.33 10^6/uL (3.85-5.65); Red Cell Distribution Width 15.9 % (12.1-15.1); White Blood Count 4.61 10^3/uL (3.29-11.43)
[2024-01-16 12:09] LABS: Alanine Aminotransferase 11 U/L (0-33); Albumin Level 3.5 g/dL (3.5-5.2); Alkaline Phosphatase 91 U/L (35-105); Anion Gap 10.8 (5-19); Aspartate Amino Transferase 26 U/L (0-32); Blood Urea Nitrogen 12 mg/dL (8-23); Calcium 8.9 mg/dL (8.5-10.5); Carbon Dioxide 24 mmol/L (22-29); Chloride 108 mmol/L (98-107); Creatinine Clr Calc Pharmacy 57.2817; Globulin 3.1 g/dL (1.3-4.6); Glucose 103 mg/dL (65-115); Osmolality Calculated 288 mOsm/kg (285-295); Potassium 3.8 mmol/L (3.5-5.1); Sodium 139 mmol/L (136-145); Thyroid Stimulating Hormone 1.69 uIU/mL (0.27-4.20); Total Bilirubin 0.2 mg/dL (0.15-1.2); Total Protein 6.6 g/dL (6.6-8.7)
[2024-01-16] MEDS: nivolumab 240 MG in sodium chloride 0.9% 250 ML 548 MG IV (14:46)
== END 2024-01-16 23:59 | disposition home or self-care (01) ==
PROVIDERS: Nurse Practitioner Family; PCP Family Medicine; Visit Provider Internal Medicine Hematology & Oncology
DX: Z51.12 Encounter for antineoplastic immunotherapy; C67.1 Malignant neoplasm of dome of bladder; Z79.899 Other long term (current) drug therapy; Z93.6 Other artificial openings of urinary tract status; Z95.828 Presence of other vascular implants and grafts; R60.0 Localized edema; Z53.9 Procedure and treatment not carried out, unspecified reason
CPT/HCPCS: 80053; 84443; 85025; 96413; 99213; A4222; J7050; J9299

== ENCOUNTER 2024-01-21 11:02 | Outpatient (CLI) | payer MEDICARE, SELFPAY ==
--- NOTE | 2024-01-21 11:15 | USCV_ITS ---
Josephine Ellis Age: 78 Gender: F : 1945 Exam Date: 01/21/2024 11:37 Ordering Phys: Lakshmi Valverde APRN Technologist: [place] [facility] [place]: BP: / HR: 64 Rhythm: Sinus Technical Quality: Adequate MEASUREMENTS (Male / Female) Normal Values 2D ECHO LVOT Diameter 2.2 cm LV Ejection Fraction MOD 4C 65.0 % LV Ejection Fraction MOD 2C 76.1 % LV Ejection Fraction 2C AL 79.5 % LA Diameter 3.5 cm RA Systolic Volume 4C AL 42.0 ml RA Systolic Volume 4C MOD 40.4 ml LA Sys Volume AL 59.7 cm cubed Aorta at Sinotubular Diameter 2.2 cm M-MODE LA Ao Ratio MM 1.5 AV Cusp Separation MM 1.7 cm DOPPLER AV Peak Velocity 127.0 cm/s LVOT Peak Velocity 118.0 cm/s AV Area Cont Eq vti 3.9 cm squared AV Area Cont Eq pk 3.6 cm squared MV Peak Velocity 95.0 cm/s MV Area PHT 4.8 cm squared Mitral E to A Ratio 1.0 TR Peak Velocity 130.0 cm/s TR Peak Gradient 6.8 mmHg TV Peak E Velocity 75.0 cm/s PV Peak Velocity 106.0 cm/s FINDINGS Left Ventricle Normal left ventricular size and systolic function, EF 76%.. No regional wall motion abnormalities. Grade II/IV diastolic dysfunction, moderately elevated filling pressures. Right Ventricle The right ventricle is normal in size and function. Right Atrium The right atrium is normal in size. Left Atrium Mildly increased left atrial size. Mitral Valve Mild mitral valve regurgitation. Aortic Valve No gross abnormalities noted Tricuspid Valve Trace tricuspid valve regurgitation. Estimated pulmonary artery peak systolic pressure possibly within normal limits Pulmonic Valve Mild pulmonary valve regurgitation. Pericardium Normal pericardium without effusion. Aorta Normal ascending aorta dimension. IVC The inferior vena cava appears normal. CONCLUSIONS Normal left ventricular size and systolic function, EF 76%.. No regional wall motion abnormalities. Grade II/IV diastolic dysfunction, moderately elevated filling pressures. Trace tricuspid valve regurgitation. Estimated pulmonary artery peak systolic pressure possibly within normal limits. Mild pulmonary valve regurgitation. Mild mitral valve regurgitation. There is no pericardial effusion. There are no intracardiac masses. Compared to the study from 06/16/2018, there may not be a significant change Dr Gisela Conn MD FACC (Electronically Signed) Final Date: 23 January 2024 08:22 S
== END 2024-01-21 11:03 | disposition home or self-care (01) ==
LOC: RAD 11:03
PROVIDERS: PCP Family Medicine; Visit Provider Nurse Practitioner Family
DX: I50.30 Unspecified diastolic (congestive) heart failure (principal); C67.1 Malignant neoplasm of dome of bladder; R60.0 Localized edema
CPT/HCPCS: 93306

== ENCOUNTER 2024-02-13 10:00 | Oncology outpatient (recurring) (ONCR) | payer MEDICARE, SELFPAY ==
[2024-01-30 13:20] LABS: Basophils # 0.1 10^3/uL (0.0-0.1); Basophils % 1.6 %; Eosinophils # 0.2 10^3/uL (0.0-0.8); Eosinophils % 4.3 %; Hematocrit 33.3 % (36-47); Lymphocytes # 1.4 10^3/uL (0.8-4.8); Lymphocytes % 31.2 %; Mean Corpuscular HGB Conc 30.9 g/dL (30-55); Mean Corpuscular Volume 97.1 fl (85-98); Mean Platelet Volume 8.9 fL (7.4-10.4); Monocytes # 0.4 10^3/uL (0.2-0.9); Monocytes % 9.4 %; Neutrophils # 2.37 10^3/uL (1.8-7.7); Neutrophils % 53.3 %; Nucleated Red Blood Cells % 0 %; Platelet Count 243 10^3/cmm (157-399); Red Blood Count 3.43 10^6/uL (3.85-5.65); White Blood Count 4.45 10^3/uL (3.29-11.43)
[2024-01-30 13:56] LABS: Alanine Aminotransferase 12 U/L (0-33); Albumin Level 3.7 g/dL (3.5-5.2); Alkaline Phosphatase 97 U/L (35-105); Anion Gap 12.4 (5-19); Aspartate Amino Transferase 27 U/L (0-32); Blood Urea Nitrogen 18 mg/dL (8-23); Calcium 9.1 mg/dL (8.5-10.5); Carbon Dioxide 28 mmol/L (22-29); Chloride 103 mmol/L (98-107); Creatinine Clr Calc Pharmacy 56.7679; Globulin 3.6 g/dL (1.3-4.6); Glucose 101 mg/dL (65-115); Lactate Dehydrogenase 177 U/L (135-214); Osmolality Calculated 290 mOsm/kg (285-295); Potassium 4.4 mmol/L (3.5-5.1); Sodium 139 mmol/L (136-145); Thyroid Stimulating Hormone 2.14 uIU/mL (0.27-4.20); Total Bilirubin 0.3 mg/dL (0.15-1.2); Total Protein 7.3 g/dL (6.6-8.7)
[2024-01-30] MEDS: dexamethasone 4 mg/mL INJ 2 MG IVP (15:15)
[2024-01-30] MEDS: nivolumab 240 MG in sodium chloride 0.9% 250 ML 548 MG IV (15:19)
[2024-01-30 15:55] VITALS: BP 120/78; PULSE 78; RESP 18; TEMP 36.6; O2SAT 97
[2024-02-13 10:26] LABS: Basophils # 0.1 10^3/uL (0.0-0.1); Basophils % 1.3 %; Eosinophils # 0.2 10^3/uL (0.0-0.8); Eosinophils % 2.7 %; Hematocrit 33.2 % (36-47); Lymphocytes # 1.6 10^3/uL (0.8-4.8); Lymphocytes % 26.7 %; Mean Corpuscular HGB Conc 30.7 g/dL (30-55); Mean Corpuscular Hemoglobin 30.4 pg (27-33); Mean Corpuscular Volume 99.1 fl (85-98); Mean Platelet Volume 8.7 fL (7.4-10.4); Monocytes # 0.5 10^3/uL (0.2-0.9); Monocytes % 8.6 %; Neutrophils % 60.4 %; Nucleated Red Blood Cells % 0 %; Platelet Count 256 10^3/cmm (157-399); Red Blood Count 3.35 10^6/uL (3.85-5.65); White Blood Count 5.96 10^3/uL (3.29-11.43)
[2024-02-13 11:01] LABS: Alanine Aminotransferase 9 U/L (0-33); Albumin Level 3.7 g/dL (3.5-5.2); Alkaline Phosphatase 109 U/L (35-105); Anion Gap 8.7 (5-19); Aspartate Amino Transferase 19 U/L (0-32); Blood Urea Nitrogen 18 mg/dL (8-23); Calcium 8.9 mg/dL (8.5-10.5); Carbon Dioxide 28 mmol/L (22-29); Chloride 104 mmol/L (98-107); Creatinine Clr Calc Pharmacy 56.7679; Ferritin 129 ng/mL (15-150); Globulin 3.4 g/dL (1.3-4.6); Glucose 105 mg/dL (65-115); Iron 54 ug/dL (37-145); Osmolality Calculated 286 mOsm/kg (285-295); Percent Saturation 21.5 % (20-50); Potassium 3.7 mmol/L (3.5-5.1); Sodium 137 mmol/L (136-145); Thyroid Stimulating Hormone 2.04 uIU/mL (0.27-4.20); Total Bilirubin 0.3 mg/dL (0.15-1.2); Total Iron Binding Capacity 251 mcg/dl; Total Protein 7.1 g/dL (6.6-8.7); Unsaturated Iron Binding 197 ug/dL (112-347)
[2024-02-13] MEDS: nivolumab 240 MG in sodium chloride 0.9% 250 ML 548 MG IV (13:18)
[2024-02-13 14:00] VITALS: BP 148/62; PULSE 58; RESP 17; TEMP 36.7; O2SAT 96
== END 2024-02-13 23:59 | disposition home or self-care (01) ==
PROVIDERS: Internal Medicine; Nurse Practitioner; PCP Family Medicine; Visit Provider Internal Medicine Hematology & Oncology
DX: Z51.12 Encounter for antineoplastic immunotherapy (principal); C67.1 Malignant neoplasm of dome of bladder; Z53.9 Procedure and treatment not carried out, unspecified reason; Z79.890 Hormone replacement therapy; D64.9 Anemia, unspecified; Z95.828 Presence of other vascular implants and grafts; Z87.891 Personal history of nicotine dependence; Z90.49 Acquired absence of other specified parts of digestive tract; Z90.6 Acquired absence of other parts of urinary tract; Z93.6 Other artificial openings of urinary tract status
CPT/HCPCS: 80053; 82728; 83540; 83550; 83615; 84443; 85025; 96375; 96413; 99213; 99214; A4222; J1100; J7050; J9299

== ENCOUNTER 2024-02-25 12:39 | Outpatient (CLI) | payer MEDICARE, SELFPAY | END 2024-02-25 12:40 | disposition home or self-care (01) | LOC: RAD 12:44 | PROVIDERS: PCP Family Medicine; Visit Provider Family Medicine | DX: Z12.31 Encounter for screening mammogram for malignant neoplasm of breast (principal); R92.323 Mammographic fibroglandular density, bilateral breasts; R92.1 Mammographic calcification found on diagnostic imaging of breast | CPT/HCPCS: 77063; 77067 ==

== ENCOUNTER 2024-03-18 09:39 | Oncology outpatient (recurring) (ONCR) | payer MEDICARE, SELFPAY ==
--- NOTE | 2024-02-25 12:49 | MM_ITS ---
WS: [id number] BILATERAL 3D TOMOSYNTHESIS DIGITAL SCREENING MAMMOGRAPHY WITH CAD CLINICAL INFORMATION: SCREENING HISTORY: Screening mammogram. No current complaints. COMPARISON: 2021 TECHNIQUE: Bilateral CC and MLO views. FINDINGS: Scattered fibroglandular densities bilaterally. No suspicious focal mass, asymmetry, calcifications, or architectural distortion. No evidence of malignancy. Vascular calcifications. Punctate and lucent centered calcifications.
[2024-03-18 10:27] VITALS: BP 145/75; PULSE 51; RESP 17; TEMP 36.8; O2SAT 95
[2024-03-18 10:34] LABS: Basophils # 0.1 10^3/uL (0.0-0.1); Basophils % 1.4 %; Eosinophils # 0.1 10^3/uL (0.0-0.8); Eosinophils % 3.3 %; Hematocrit 33.7 % (36-47); Lymphocytes # 1.3 10^3/uL (0.8-4.8); Lymphocytes % 29.9 %; Mean Corpuscular HGB Conc 30.9 g/dL (30-55); Mean Corpuscular Hemoglobin 30.2 pg (27-33); Mean Platelet Volume 8.9 fL (7.4-10.4); Monocytes # 0.4 10^3/uL (0.2-0.9); Neutrophils # 2.32 10^3/uL (1.8-7.7); Neutrophils % 55.2 %; Nucleated Red Blood Cells % 0 %; Platelet Count 235 10^3/cmm (157-399); Red Blood Count 3.44 10^6/uL (3.85-5.65); Red Cell Distribution Width 14.5 % (12.1-15.1); White Blood Count 4.21 10^3/uL (3.29-11.43)
[2024-03-18 10:52] LABS: Alanine Aminotransferase 11 U/L (0-33); Albumin Level 3.5 g/dL (3.5-5.2); Alkaline Phosphatase 104 U/L (35-105); Aspartate Amino Transferase 24 U/L (0-32); Blood Urea Nitrogen 15 mg/dL (8-23); Calcium 9.2 mg/dL (8.5-10.5); Carbon Dioxide 27 mmol/L (22-29); Chloride 105 mmol/L (98-107); Creatinine Clr Calc Pharmacy 57.2817; Ferritin 160 ng/mL (15-150); Globulin 3.3 g/dL (1.3-4.6); Glucose 95 mg/dL (65-115); Iron 47 ug/dL (37-145); Lactate Dehydrogenase 163 U/L (135-214); Osmolality Calculated 291 mOsm/kg (285-295); Percent Saturation 20.8 % (20-50); Sodium 140 mmol/L (136-145); Total Bilirubin 0.3 mg/dL (0.15-1.2); Total Iron Binding Capacity 225 mcg/dl; Total Protein 6.8 g/dL (6.6-8.7); Unsaturated Iron Binding 178 ug/dL (112-347)
[2024-03-18 11:08] LABS: Vitamin B12 348 pg/mL (232-1245)
[2024-03-18 11:20] LABS: Folate Level > 20.0 ng/mL (4.8-37.3)
[2024-03-18] MEDS: nivolumab 240 MG in sodium chloride 0.9% 250 ML 548 MG IV (12:36)
[2024-03-18 13:40] VITALS: BP 115/54; PULSE 66; RESP 17; TEMP 35.8
== END 2024-03-18 23:59 | disposition home or self-care (01) ==
PROVIDERS: PCP Family Medicine; Visit Provider Internal Medicine
DX: Z51.12 Encounter for antineoplastic immunotherapy (principal); C67.1 Malignant neoplasm of dome of bladder; Z79.620 Long term (current) use of immunosuppressive biologic; Z90.49 Acquired absence of other specified parts of digestive tract; Z95.828 Presence of other vascular implants and grafts; D64.9 Anemia, unspecified; M54.30 Sciatica, unspecified side; Z79.899 Other long term (current) drug therapy
CPT/HCPCS: 77063; 77067; 80053; 82607; 82728; 82746; 83010; 83540; 83550; 83615; 85025; 85045; 96413; 99214; A4222; J7050; J9299

== ENCOUNTER 2024-04-23 13:20 | Oncology outpatient (recurring) (ONCR) | payer MEDICARE, SELFPAY ==
[2024-04-01 09:41] LABS: Basophils # 0.1 10^3/uL (0.0-0.1); Basophils % 1.7 %; Eosinophils # 0.2 10^3/uL (0.0-0.8); Eosinophils % 4.3 %; Hematocrit 35.1 % (36-47); Lymphocytes # 1.1 10^3/uL (0.8-4.8); Lymphocytes % 23.7 %; Mean Corpuscular HGB Conc 31.1 g/dL (30-55); Mean Corpuscular Hemoglobin 30.8 pg (27-33); Mean Corpuscular Volume 99.2 fl (85-98); Mean Platelet Volume 8.8 fL (7.4-10.4); Monocytes # 0.4 10^3/uL (0.2-0.9); Monocytes % 8.6 %; Neutrophils # 2.85 10^3/uL (1.8-7.7); Neutrophils % 61.3 %; Nucleated Red Blood Cells % 0 %; Platelet Count 259 10^3/cmm (157-399); Red Blood Count 3.54 10^6/uL (3.85-5.65); Red Cell Distribution Width 14.5 % (12.1-15.1); White Blood Count 4.65 10^3/uL (3.29-11.43)
[2024-04-01 10:12] LABS: Alanine Aminotransferase 11 U/L (0-33); Albumin Level 3.7 g/dL (3.5-5.2); Alkaline Phosphatase 107 U/L (35-105); Anion Gap 11.3 (5-19); Aspartate Amino Transferase 26 U/L (0-32); Blood Urea Nitrogen 17 mg/dL (8-23); Calcium 8.9 mg/dL (8.5-10.5); Carbon Dioxide 29 mmol/L (22-29); Chloride 102 mmol/L (98-107); Creatinine Clr Calc Pharmacy 57.1106; Globulin 3.1 g/dL (1.3-4.6); Glucose 108 mg/dL (65-115); Osmolality Calculated 288 mOsm/kg (285-295); Potassium 4.3 mmol/L (3.5-5.1); Sodium 138 mmol/L (136-145); Thyroid Stimulating Hormone 2.85 uIU/mL (0.27-4.20); Total Bilirubin 0.2 mg/dL (0.15-1.2); Total Protein 6.8 g/dL (6.6-8.7)
[2024-04-01] MEDS: nivolumab 240 MG in sodium chloride 0.9% 250 ML 548 MG IV (11:50)
[2024-04-01 12:29] VITALS: BP 128/78; PULSE 71; RESP 18; TEMP 36.6; O2SAT 99
[2024-04-23 14:17] LABS: Basophils # 0.1 10^3/uL (0.0-0.1); Basophils % 1.4 %; Eosinophils # 0.2 10^3/uL (0.0-0.8); Eosinophils % 3.3 %; Hematocrit 33.5 % (36-47); Lymphocytes # 1.5 10^3/uL (0.8-4.8); Mean Corpuscular HGB Conc 31.6 g/dL (30-55); Mean Corpuscular Hemoglobin 31.1 pg (27-33); Mean Corpuscular Volume 98.2 fl (85-98); Mean Platelet Volume 9.1 fL (7.4-10.4); Monocytes # 0.4 10^3/uL (0.2-0.9); Monocytes % 7.7 %; Neutrophils # 2.77 10^3/uL (1.8-7.7); Neutrophils % 56.4 %; Nucleated Red Blood Cells % 0 %; Platelet Count 233 10^3/cmm (157-399); Red Blood Count 3.41 10^6/uL (3.85-5.65); Red Cell Distribution Width 14.4 % (12.1-15.1); White Blood Count 4.91 10^3/uL (3.29-11.43)
[2024-04-23 14:45] LABS: Alanine Aminotransferase 8 U/L (0-33); Albumin Level 3.6 g/dL (3.5-5.2); Alkaline Phosphatase 99 U/L (35-105); Anion Gap 15.1 (5-19); Aspartate Amino Transferase 23 U/L (0-32); Blood Urea Nitrogen 22 mg/dL (8-23); Carbon Dioxide 26 mmol/L (22-29); Chloride 101 mmol/L (98-107); Creatinine Clr Calc Pharmacy 57.7958; Globulin 3.2 g/dL (1.3-4.6); Glucose 130 mg/dL (65-115); Lactate Dehydrogenase 168 U/L (135-214); Osmolality Calculated 291 mOsm/kg (285-295); Potassium 4.1 mmol/L (3.5-5.1); Sodium 138 mmol/L (136-145); Total Bilirubin 0.2 mg/dL (0.15-1.2); Total Protein 6.8 g/dL (6.6-8.7)
[2024-04-23] MEDS: nivolumab 240 MG in sodium chloride 0.9% 250 ML 548 MG IV (15:39)
[2024-04-23 16:15] VITALS: BP 126/67; PULSE 69; RESP 17; TEMP 36.5
== END 2024-04-23 23:59 | disposition home or self-care (01) ==
PROVIDERS: Nurse Practitioner; PCP Family Medicine; Visit Provider Internal Medicine
DX: Z53.9 Procedure and treatment not carried out, unspecified reason; Z51.12 Encounter for antineoplastic immunotherapy; C67.1 Malignant neoplasm of dome of bladder; Z79.620 Long term (current) use of immunosuppressive biologic; Z90.49 Acquired absence of other specified parts of digestive tract; Z93.6 Other artificial openings of urinary tract status
CPT/HCPCS: 80053; 83615; 84443; 85025; 96413; 99213; 99214; A4222; J7050; J9299

== ENCOUNTER 2024-05-21 13:15 | Oncology outpatient (recurring) (ONCR) | payer MEDICARE, SELFPAY ==
--- NOTE | 2024-05-01 09:51 | PETR_ITS ---
PROCEDURE INFORMATION: Exam: PET/CT Skull Base to Mid-thigh Exam date and time: 05/01/2024 11:11 AM Age: 78 years old Clinical indication: Condition or disease; Primary cancer: Colon and bladder cancer; Condition/disease: Abnormal findings of lung field; Prior surgery; Surgery date: 6+ months; Surgery type: Colon, bladder, hyst, gb, port, ostomy, back; Additional info: Lung mass LABS AND CLINICAL REPORTS: Glucose: 113 mg/dl Treatment strategy for malignancy (PET staging): Restaging (PS) TECHNIQUE: Imaging protocol: Following at least four-hour fasting and following the injection of radiopharmaceutical, low dose CT images were obtained. Then, PET images were obtained. Attenuation corrected images were constructed using the CT scan. Fused images of PET and CT were reviewed. The standardized uptake values (SUV) reported below are maximum values within a region of interest, expressed in gm/ml. Exam includes orbital meatal line to mid-thigh. SUV normalization method: BodyWeight Radiopharmaceutical: 11.33 mCi F-18 FDG (Fluorodeoxyglucose), IV. Time of imaging post radiopharmaceutical administration: 54 minutes Injection site: right ac COMPARISON: CT chest abdomen pelvis 10/17/2023, PET CT 07/02/2023 FINDINGS: Tubes, catheters and devices: Port catheter placed via the left internal jugular vein terminates in the superior vena cava. Brain: Normal physiologic uptake. Pharynx: No abnormal uptake. Larynx: Benign physiologic uptake. Lungs, pleura and trachea: No abnormal uptake. No lung nodules or masses. No pleural effusion. Heart: No abnormal uptake. There is no cardiomegaly. Mild coronary artery calcification is present. There is no pericardial effusion. Mediastinal space: Small focus of increased uptake of 4.3 SUV in the distal esophagus on series 301, image [address] abnormality is indeterminate. Stable large hiatal hernia containing stomach and the mid segment of transverse colon. Liver: No abnormal uptake. Maximum uptake is 3.1 SUV. Gallbladder and biliary ducts: No abnormal uptake. Pancreas: No abnormal uptake. Spleen: No abnormal uptake. No splenomegaly. Adrenal glands: No abnormal uptake. Kidneys and ureters: Normal physiologic uptake. Stomach and bowel: No abnormal uptake. Intraperitoneal and retroperitoneal spaces: No abnormal uptake. No ascites. Urinary bladder: Status post radical cystectomy with ileal conduit urinary diversion. Reproductive: No abnormal uptake. Vasculature: No abnormal uptake. No aortic aneurysm. Lymph nodes: No FDG avid lymphadenopathy in the neck, chest, abdomen, pelvis, and extremities. Skeleton: No abnormal uptake in the visualized axial and appendicular skeleton. Stable changes after L4 and L5 posterior laminectomy and T9-S1 fusion with bilateral transpedicular internal fixation. There is stable internal fixation in the right femoral shaft, head and neck. There is stable extensive sclerosis on both sides of bilateral sacroiliac joints. Mild chronic compression of T5 is a new finding since 10/17/2023 with no abnormal uptake. Soft tissues: Benign muscular uptake in the left subscapularis muscle and in bilateral forearms and hands. PET/PET skull to thigh SUBS [id number] IMPRESSION: No abnormal radiotracer uptake to suggest local recurrence or metastatic disease. No abnormal lung nodules or masses. No abnormal uptake in the left hilar lymph node. Nonspecific focus of mildly increased uptake of 4.3 SUV in the distal esophagus located within the large hiatal hernia.
[2024-05-07 11:58] LABS: Basophils # 0.1 10^3/uL (0.0-0.1); Basophils % 2.2 %; Eosinophils # 0.2 10^3/uL (0.0-0.8); Eosinophils % 4.4 %; Lymphocytes # 1.4 10^3/uL (0.8-4.8); Lymphocytes % 33.7 %; Mean Corpuscular HGB Conc 31.2 g/dL (30-55); Mean Corpuscular Hemoglobin 30.6 pg (27-33); Mean Corpuscular Volume 98.3 fl (85-98); Mean Platelet Volume 9.1 fL (7.4-10.4); Monocytes # 0.4 10^3/uL (0.2-0.9); Monocytes % 9.8 %; Neutrophils # 2.03 10^3/uL (1.8-7.7); Neutrophils % 49.7 %; Nucleated Red Blood Cells % 0 %; Platelet Count 229 10^3/cmm (157-399); Red Blood Count 3.46 10^6/uL (3.85-5.65); Red Cell Distribution Width 14.1 % (12.1-15.1); White Blood Count 4.09 10^3/uL (3.29-11.43)
[2024-05-07 12:30] LABS: Alanine Aminotransferase 9 U/L (0-33); Albumin Level 3.8 g/dL (3.5-5.2); Alkaline Phosphatase 99 U/L (35-105); Anion Gap 12.1 (5-19); Aspartate Amino Transferase 26 U/L (0-32); Blood Urea Nitrogen 20 mg/dL (8-23); Calcium 9.4 mg/dL (8.5-10.5); Carbon Dioxide 28 mmol/L (22-29); Chloride 100 mmol/L (98-107); Creatinine Clr Calc Pharmacy 57.1106; Globulin 3.4 g/dL (1.3-4.6); Glucose 104 mg/dL (65-115); Lactate Dehydrogenase 174 U/L (135-214); Osmolality Calculated 285 mOsm/kg (285-295); Potassium 4.1 mmol/L (3.5-5.1); Sodium 136 mmol/L (136-145); Thyroid Stimulating Hormone 1.82 uIU/mL (0.27-4.20); Total Bilirubin 0.5 mg/dL (0.15-1.2); Total Protein 7.2 g/dL (6.6-8.7)
[2024-05-07] MEDS: nivolumab 240 MG in sodium chloride 0.9% 250 ML 548 MG IV (13:51)
[2024-05-07 14:33] VITALS: BP 117/81; PULSE 71; RESP 18; TEMP 36.9; O2SAT 97
[2024-05-21 13:53] LABS: Basophils # 0.1 10^3/uL (0.0-0.1); Basophils % 1.4 %; Eosinophils # 0.2 10^3/uL (0.0-0.8); Eosinophils % 2.9 %; Hematocrit 34.6 % (36-47); Lymphocytes # 1.6 10^3/uL (0.8-4.8); Lymphocytes % 30.4 %; Mean Corpuscular HGB Conc 31.5 g/dL (30-55); Mean Corpuscular Hemoglobin 31.4 pg (27-33); Mean Corpuscular Volume 99.7 fl (85-98); Monocytes # 0.4 10^3/uL (0.2-0.9); Monocytes % 8.5 %; Neutrophils # 2.91 10^3/uL (1.8-7.7); Neutrophils % 56.4 %; Nucleated Red Blood Cells % 0 %; Platelet Count 219 10^3/cmm (157-399); Red Blood Count 3.47 10^6/uL (3.85-5.65); Red Cell Distribution Width 14.1 % (12.1-15.1); White Blood Count 5.16 10^3/uL (3.29-11.43)
[2024-05-21 14:17] LABS: Alanine Aminotransferase 12 U/L (0-33); Albumin Level 3.8 g/dL (3.5-5.2); Alkaline Phosphatase 89 U/L (35-105); Aspartate Amino Transferase 31 U/L (0-32); Blood Urea Nitrogen 33 mg/dL (8-23); Calcium 8.6 mg/dL (8.5-10.5); Carbon Dioxide 23 mmol/L (22-29); Chloride 104 mmol/L (98-107); Creatinine Clr Calc Pharmacy 57.4532; Ferritin 128 ng/mL (15-150); Globulin 3.1 g/dL (1.3-4.6); Glucose 107 mg/dL (65-115); Iron 38 ug/dL (37-145); Lactate Dehydrogenase 174 U/L (135-214); Osmolality Calculated 296 mOsm/kg (285-295); Percent Saturation 15.8 % (20-50); Sodium 139 mmol/L (136-145); Total Bilirubin 0.2 mg/dL (0.15-1.2); Total Iron Binding Capacity 239 mcg/dl; Total Protein 6.9 g/dL (6.6-8.7); Unsaturated Iron Binding 201 ug/dL (112-347)
[2024-05-21 14:33] LABS: Vitamin B12 311 pg/mL (232-1245)
[2024-05-21 14:57] LABS: Folate Level > 20.0 ng/mL (4.8-37.3)
[2024-05-21] MEDS: nivolumab 240 MG in sodium chloride 0.9% 250 ML 548 MG IV (15:06)
[2024-05-21 15:50] VITALS: BP 123/63; PULSE 62; RESP 18; TEMP 36.2; O2SAT 95
== END 2024-05-21 23:59 | disposition home or self-care (01) ==
PROVIDERS: Nurse Practitioner; PCP Family Medicine; Visit Provider Internal Medicine
DX: Z53.9 Procedure and treatment not carried out, unspecified reason; Z51.12 Encounter for antineoplastic immunotherapy; C67.1 Malignant neoplasm of dome of bladder; C44.722 Squamous cell carcinoma of skin of right lower limb, including hip; D64.9 Anemia, unspecified; Z79.620 Long term (current) use of immunosuppressive biologic; Z90.49 Acquired absence of other specified parts of digestive tract; Z93.6 Other artificial openings of urinary tract status; R60.0 Localized edema
CPT/HCPCS: 78815; 80053; 82607; 82728; 82746; 83010; 83540; 83550; 83615; 84443; 85025; 85045; 96413; 99213; 99214; A4222; A9552; J7050; J9299

== ENCOUNTER 2024-06-18 11:15 | Oncology outpatient (recurring) (ONCR) | payer MEDICARE, SELFPAY ==
[2024-06-04 14:20] LABS: Basophils # 0.1 10^3/uL (0.0-0.1); Basophils % 2.3 %; Eosinophils # 0.2 10^3/uL (0.0-0.8); Eosinophils % 4.5 %; Hematocrit 34.1 % (36-47); Lymphocytes # 1.5 10^3/uL (0.8-4.8); Lymphocytes % 34.8 %; Mean Corpuscular HGB Conc 31.4 g/dL (30-55); Mean Corpuscular Hemoglobin 31.7 pg (27-33); Mean Corpuscular Volume 100.9 fl (85-98); Monocytes # 0.4 10^3/uL (0.2-0.9); Monocytes % 9.5 %; Neutrophils # 2.15 10^3/uL (1.8-7.7); Neutrophils % 48.7 %; Nucleated Red Blood Cells % 0 %; Platelet Count 228 10^3/cmm (157-399); Red Blood Count 3.38 10^6/uL (3.85-5.65); Red Cell Distribution Width 14.6 % (12.1-15.1); White Blood Count 4.42 10^3/uL (3.29-11.43)
[2024-06-04 14:36] LABS: Alanine Aminotransferase 11 U/L (0-33); Albumin Level 3.8 g/dL (3.5-5.2); Alkaline Phosphatase 87 U/L (35-105); Anion Gap 13.7 (5-19); Aspartate Amino Transferase 28 U/L (0-32); Blood Urea Nitrogen 18 mg/dL (8-23); Carbon Dioxide 25 mmol/L (22-29); Chloride 105 mmol/L (98-107); Creatinine Clr Calc Pharmacy 57.4532; Globulin 3.3 g/dL (1.3-4.6); Glucose 99 mg/dL (65-115); Osmolality Calculated 290 mOsm/kg (285-295); Potassium 4.7 mmol/L (3.5-5.1); Sodium 139 mmol/L (136-145); Total Bilirubin 0.3 mg/dL (0.15-1.2); Total Protein 7.1 g/dL (6.6-8.7)
[2024-06-04] MEDS: nivolumab 240 MG in sodium chloride 0.9% 250 ML 548 MG IV (15:47)
[2024-06-04 16:27] VITALS: BP 121/74; PULSE 64; RESP 16; TEMP 36.4; O2SAT 96
[2024-06-18 11:41] LABS: Basophils # 0.1 10^3/uL (0.0-0.1); Eosinophils # 0.2 10^3/uL (0.0-0.8); Eosinophils % 3.5 %; Hematocrit 37.8 % (36-47); Lymphocytes # 1.3 10^3/uL (0.8-4.8); Lymphocytes % 27.1 %; Mean Corpuscular Hemoglobin 31.4 pg (27-33); Mean Corpuscular Volume 111.8 fl (85-98); Mean Platelet Volume 9.2 fL (7.4-10.4); Monocytes # 0.4 10^3/uL (0.2-0.9); Monocytes % 8.5 %; Neutrophils # 2.71 10^3/uL (1.8-7.7); Neutrophils % 58.7 %; Nucleated Red Blood Cells % 0 %; Platelet Count 220 10^3/cmm (157-399); Red Blood Count 3.38 10^6/uL (3.85-5.65); Red Cell Distribution Width 14.4 % (12.1-15.1); White Blood Count 4.61 10^3/uL (3.29-11.43)
[2024-06-18 12:14] LABS: Ferritin 118 ng/mL (15-150); Iron 68 ug/dL (37-145); Percent Saturation 29.6 % (20-50); Thyroid Stimulating Hormone 2.36 uIU/mL (0.27-4.20); Total Iron Binding Capacity 229 mcg/dl; Unsaturated Iron Binding 161 ug/dL (112-347)
[2024-06-18] MEDS: nivolumab 240 MG in sodium chloride 0.9% 250 ML 548 MG IV (13:38)
[2024-06-18 14:21] VITALS: BP 120/64; PULSE 64; RESP 17; TEMP 36.5; O2SAT 98
[2024-06-18 16:52] LABS: Alanine Aminotransferase 11 U/L (0-33); Albumin Level 3.6 g/dL (3.5-5.2); Alkaline Phosphatase 91 U/L (35-105); Anion Gap 16.2 (5-19); Aspartate Amino Transferase 28 U/L (0-32); Blood Urea Nitrogen 20 mg/dL (8-23); Carbon Dioxide 24 mmol/L (22-29); Chloride 104 mmol/L (98-107); Creatinine Clr Calc Pharmacy 57.6247; Globulin 3.2 g/dL (1.3-4.6); Glucose 92 mg/dL (65-115); Osmolality Calculated 292 mOsm/kg (285-295); Potassium 4.2 mmol/L (3.5-5.1); Sodium 140 mmol/L (136-145); Total Bilirubin 0.3 mg/dL (0.15-1.2); Total Protein 6.8 g/dL (6.6-8.7)
== END 2024-06-18 23:59 | disposition home or self-care (01) ==
PROVIDERS: Nurse Practitioner Family; PCP Family Medicine; Visit Provider Internal Medicine
DX: Z53.9 Procedure and treatment not carried out, unspecified reason; Z51.12 Encounter for antineoplastic immunotherapy; C67.1 Malignant neoplasm of dome of bladder; D64.9 Anemia, unspecified; K44.9 Diaphragmatic hernia without obstruction or gangrene; R03.0 Elevated blood-pressure reading, without diagnosis of hypertension; Z79.620 Long term (current) use of immunosuppressive biologic; Z95.828 Presence of other vascular implants and grafts
CPT/HCPCS: 80053; 82728; 83540; 83550; 84443; 85025; 96413; 99214; A4222; J7050; J9299

== ENCOUNTER 2024-07-16 12:45 | Oncology outpatient (recurring) (ONCR) | payer MEDICARE, SELFPAY ==
[2024-07-02 10:11] LABS: Basophils # 0.1 10^3/uL (0.0-0.1); Basophils % 2.3 %; Eosinophils # 0.2 10^3/uL (0.0-0.8); Eosinophils % 4.9 %; Hematocrit 32.7 % (36-47); Lymphocytes # 1.1 10^3/uL (0.8-4.8); Lymphocytes % 28.5 %; Mean Corpuscular HGB Conc 30.9 g/dL (30-55); Mean Corpuscular Hemoglobin 30.8 pg (27-33); Mean Corpuscular Volume 99.7 fl (85-98); Mean Platelet Volume 9.3 fL (7.4-10.4); Monocytes # 0.3 10^3/uL (0.2-0.9); Monocytes % 8.8 %; Neutrophils # 2.13 10^3/uL (1.8-7.7); Neutrophils % 55.2 %; Nucleated Red Blood Cells % 0 %; Platelet Count 217 10^3/cmm (157-399); Red Blood Count 3.28 10^6/uL (3.85-5.65); Red Cell Distribution Width 14.5 % (12.1-15.1); White Blood Count 3.86 10^3/uL (3.29-11.43)
[2024-07-02 10:35] LABS: Alanine Aminotransferase 10 U/L (0-33); Albumin Level 3.5 g/dL (3.5-5.2); Alkaline Phosphatase 90 U/L (35-105); Anion Gap 12.8 (5-19); Aspartate Amino Transferase 26 U/L (0-32); Blood Urea Nitrogen 20 mg/dL (8-23); Calcium 8.9 mg/dL (8.5-10.5); Carbon Dioxide 28 mmol/L (22-29); Chloride 104 mmol/L (98-107); Globulin 3.2 g/dL (1.3-4.6); Glucose 95 mg/dL (65-115); Osmolality Calculated 292 mOsm/kg (285-295); Potassium 4.8 mmol/L (3.5-5.1); Sodium 140 mmol/L (136-145); Thyroid Stimulating Hormone 2.15 uIU/mL (0.27-4.20); Total Bilirubin 0.4 mg/dL (0.15-1.2); Total Protein 6.7 g/dL (6.6-8.7)
[2024-07-02] MEDS: nivolumab 240 MG in sodium chloride 0.9% 250 ML 548 MG IV (12:06)
[2024-07-02 12:54] VITALS: BP 108/66; PULSE 67; RESP 16; TEMP 36.6; O2SAT 96
[2024-07-16 13:21] LABS: Basophils # 0.1 10^3/uL (0.0-0.1); Eosinophils # 0.2 10^3/uL (0.0-0.8); Eosinophils % 4.3 %; Hematocrit 34.3 % (36-47); Lymphocytes # 1.5 10^3/uL (0.8-4.8); Mean Corpuscular HGB Conc 30.9 g/dL (30-55); Mean Corpuscular Hemoglobin 31.3 pg (27-33); Mean Corpuscular Volume 101.2 fl (85-98); Mean Platelet Volume 9.3 fL (7.4-10.4); Monocytes # 0.4 10^3/uL (0.2-0.9); Monocytes % 9.3 %; Neutrophils # 2.26 10^3/uL (1.8-7.7); Neutrophils % 51.2 %; Nucleated Red Blood Cells % 0 %; Platelet Count 231 10^3/cmm (157-399); Red Blood Count 3.39 10^6/uL (3.85-5.65); Red Cell Distribution Width 14.3 % (12.1-15.1); White Blood Count 4.42 10^3/uL (3.29-11.43)
[2024-07-16 13:51] LABS: Alanine Aminotransferase 9 U/L (0-33); Albumin Level 3.7 g/dL (3.5-5.2); Alkaline Phosphatase 104 U/L (35-105); Anion Gap 15.3 (5-19); Aspartate Amino Transferase 25 U/L (0-32); Blood Urea Nitrogen 23 mg/dL (8-23); Calcium 9.2 mg/dL (8.5-10.5); Carbon Dioxide 25 mmol/L (22-29); Chloride 105 mmol/L (98-107); Creatinine Clr Calc Pharmacy 57.9674; Globulin 3.4 g/dL (1.3-4.6); Glucose 111 mg/dL (65-115); Lactate Dehydrogenase 179 U/L (135-214); Osmolality Calculated 296 mOsm/kg (285-295); Potassium 4.3 mmol/L (3.5-5.1); Sodium 141 mmol/L (136-145); Thyroid Stimulating Hormone 1.99 uIU/mL (0.27-4.20); Total Bilirubin 0.3 mg/dL (0.15-1.2); Total Protein 7.1 g/dL (6.6-8.7)
[2024-07-16] MEDS: nivolumab 240 MG in sodium chloride 0.9% 250 ML 548 MG IV (14:12)
== END 2024-07-16 23:59 | disposition home or self-care (01) ==
PROVIDERS: Nurse Practitioner Family; PCP Family Medicine; Visit Provider Internal Medicine
DX: Z53.9 Procedure and treatment not carried out, unspecified reason (principal); Z51.12 Encounter for antineoplastic immunotherapy; C67.1 Malignant neoplasm of dome of bladder; D64.9 Anemia, unspecified; Z79.620 Long term (current) use of immunosuppressive biologic; R03.0 Elevated blood-pressure reading, without diagnosis of hypertension; Z90.49 Acquired absence of other specified parts of digestive tract; M19.90 Unspecified osteoarthritis, unspecified site; Z79.52 Long term (current) use of systemic steroids
CPT/HCPCS: 80053; 83615; 84443; 85025; 96413; 99213; 99214; A4222; J7050; J9299

== ENCOUNTER 2024-08-12 10:00 | Oncology outpatient (recurring) (ONCR) | payer MEDICARE, SELFPAY ==
[2024-07-29 10:58] LABS: Basophils # 0.1 10^3/uL (0.0-0.1); Basophils % 1.5 %; Eosinophils # 0.1 10^3/uL (0.0-0.8); Eosinophils % 2.5 %; Hematocrit 32.7 % (36-47); Lymphocytes # 1.2 10^3/uL (0.8-4.8); Lymphocytes % 25.7 %; Mean Corpuscular HGB Conc 31.8 g/dL (30-55); Mean Corpuscular Hemoglobin 31.6 pg (27-33); Mean Corpuscular Volume 99.4 fl (85-98); Mean Platelet Volume 9.3 fL (7.4-10.4); Monocytes # 0.4 10^3/uL (0.2-0.9); Monocytes % 8.8 %; Neutrophils # 2.93 10^3/uL (1.8-7.7); Neutrophils % 61.3 %; Nucleated Red Blood Cells % 0 %; Platelet Count 221 10^3/cmm (157-399); Red Blood Count 3.29 10^6/uL (3.85-5.65); Red Cell Distribution Width 14.3 % (12.1-15.1); White Blood Count 4.78 10^3/uL (3.29-11.43)
[2024-07-29 11:44] LABS: Alanine Aminotransferase 9 U/L (0-33); Albumin Level 3.7 g/dL (3.5-5.2); Alkaline Phosphatase 95 U/L (35-105); Anion Gap 15.7 (5-19); Aspartate Amino Transferase 25 U/L (0-32); Blood Urea Nitrogen 24 mg/dL (8-23); Carbon Dioxide 25 mmol/L (22-29); Chloride 103 mmol/L (98-107); Ferritin 124 ng/mL (15-150); Globulin 3.2 g/dL (1.3-4.6); Glucose 110 mg/dL (65-115); Iron 64 ug/dL (37-145); Osmolality Calculated 293 mOsm/kg (285-295); Percent Saturation 24.4 % (20-50); Potassium 4.7 mmol/L (3.5-5.1); Sodium 139 mmol/L (136-145); Thyroid Stimulating Hormone 1.38 uIU/mL (0.27-4.20); Total Bilirubin 0.4 mg/dL (0.15-1.2); Total Iron Binding Capacity 262 mcg/dl; Total Protein 6.9 g/dL (6.6-8.7); Unsaturated Iron Binding 198 ug/dL (112-347)
[2024-07-29] MEDS: nivolumab 240 MG in sodium chloride 0.9% 250 ML 548 MG IV (12:56)
[2024-08-12 10:14] LABS: Basophils # 0.1 10^3/uL (0.0-0.1); Basophils % 1.9 %; Eosinophils # 0.2 10^3/uL (0.0-0.8); Eosinophils % 3.6 %; Hematocrit 32.4 % (36-47); Lymphocytes # 1.3 10^3/uL (0.8-4.8); Lymphocytes % 26.5 %; Mean Corpuscular HGB Conc 31.2 g/dL (30-55); Mean Corpuscular Hemoglobin 31.6 pg (27-33); Mean Corpuscular Volume 101.3 fl (85-98); Mean Platelet Volume 9.1 fL (7.4-10.4); Monocytes # 0.4 10^3/uL (0.2-0.9); Monocytes % 8.1 %; Neutrophils # 2.82 10^3/uL (1.8-7.7); Neutrophils % 59.7 %; Nucleated Red Blood Cells % 0 %; Platelet Count 231 10^3/cmm (157-399); Red Cell Distribution Width 14.6 % (12.1-15.1); White Blood Count 4.72 10^3/uL (3.29-11.43)
[2024-08-12 10:32] LABS: Alanine Aminotransferase 9 U/L (0-33); Albumin Level 3.8 g/dL (3.5-5.2); Alkaline Phosphatase 114 U/L (35-105); Anion Gap 11.9 (5-19); Aspartate Amino Transferase 23 U/L (0-32); Blood Urea Nitrogen 22 mg/dL (8-23); Calcium 8.9 mg/dL (8.5-10.5); Carbon Dioxide 25 mmol/L (22-29); Chloride 104 mmol/L (98-107); Globulin 3.3 g/dL (1.3-4.6); Glucose 121 mg/dL (65-115); Lactate Dehydrogenase 158 U/L (135-214); Osmolality Calculated 289 mOsm/kg (285-295); Potassium 3.9 mmol/L (3.5-5.1); Sodium 137 mmol/L (136-145); Total Bilirubin 0.3 mg/dL (0.15-1.2); Total Protein 7.1 g/dL (6.6-8.7)
[2024-08-12] MEDS: nivolumab 240 MG in sodium chloride 0.9% 250 ML 548 MG IV (11:57)
[2024-08-12 12:25] LABS: Magnesium 1.8 mg/dL (1.7-2.3)
[2024-08-12 12:40] VITALS: BP 118/66; PULSE 66; RESP 16; TEMP 35.7; O2SAT 98
== END 2024-08-13 16:40 | disposition home or self-care (01) ==
PROVIDERS: Internal Medicine; PCP Family Medicine; Visit Provider Nurse Practitioner Family
DX: Z51.12 Encounter for antineoplastic immunotherapy; C67.1 Malignant neoplasm of dome of bladder; M62.838 Other muscle spasm; Z79.620 Long term (current) use of immunosuppressive biologic; Z79.899 Other long term (current) drug therapy; Z53.9 Procedure and treatment not carried out, unspecified reason
CPT/HCPCS: 80053; 82728; 83540; 83550; 83615; 83735; 84443; 85025; 96413; 99213; 99214; A4222; J7050; J9299

== ENCOUNTER 2024-09-09 13:00 | Oncology outpatient (recurring) (ONCR) | payer MEDICARE, SELFPAY ==
[2024-08-26 11:57] LABS: Hematocrit 34.4 % (36-47); Hemoglobin 10.70 g/dL (11.27-16.99); Mean Corpuscular HGB Conc 31.1 g/dL (30-55); Mean Corpuscular Hemoglobin 31.6 pg (27-33); Mean Corpuscular Volume 101.5 fl (85-98); Nucleated Red Blood Cells % 0 %; Platelet Count 192 10^3/cmm (157-399); Red Blood Count 3.39 10^6/uL (3.85-5.65); White Blood Count 3.82 10^3/uL (3.29-11.43)
[2024-08-26 12:13] LABS: Slide Review Slide Review Perform
[2024-08-26 12:15] LABS: Alanine Aminotransferase 13 U/L (0-33); Albumin Level 3.8 g/dL (3.5-5.2); Alkaline Phosphatase 130 U/L (35-105); Anion Gap 16.5 (5-19); Aspartate Amino Transferase 33 U/L (0-32); Blood Urea Nitrogen 21 mg/dL (8-23); Calcium 8.6 mg/dL (8.5-10.5); Carbon Dioxide 25 mmol/L (22-29); Chloride 106 mmol/L (98-107); Creatinine Clr Calc Pharmacy 57.4532; Globulin 3.2 g/dL (1.3-4.6); Glucose 93 mg/dL (65-115); Osmolality Calculated 299 mOsm/kg (285-295); Potassium 4.5 mmol/L (3.5-5.1); Sodium 143 mmol/L (136-145); Total Protein 7.0 g/dL (6.6-8.7)
[2024-08-26] MEDS: nivolumab 240 MG in sodium chloride 0.9% 250 ML 548 MG IV (13:16)
[2024-08-26 13:55] VITALS: BP 109/55; PULSE 88; O2SAT 100
[2024-09-09 13:20] LABS: Hematocrit 31.9 % (36-47); Hemoglobin 10.00 g/dL (11.27-16.99); Mean Corpuscular HGB Conc 31.3 g/dL (30-55); Mean Corpuscular Hemoglobin 31.6 pg (27-33); Mean Corpuscular Volume 100.9 fl (85-98); Nucleated Red Blood Cells % 0 %; Platelet Count 215 10^3/cmm (157-399); Red Blood Count 3.16 10^6/uL (3.85-5.65); White Blood Count 4.11 10^3/uL (3.29-11.43)
[2024-09-09 13:51] LABS: Alanine Aminotransferase 9 U/L (0-33); Albumin Level 3.6 g/dL (3.5-5.2); Alkaline Phosphatase 104 U/L (35-105); Anion Gap 13.0 (5-19); Aspartate Amino Transferase 24 U/L (0-32); Blood Urea Nitrogen 18 mg/dL (8-23); Calcium 8.6 mg/dL (8.5-10.5); Carbon Dioxide 26 mmol/L (22-29); Chloride 103 mmol/L (98-107); Creatinine Clr Calc Pharmacy 57.7958; Globulin 3.1 g/dL (1.3-4.6); Glucose 124 mg/dL (65-115); Osmolality Calculated 289 mOsm/kg (285-295); Potassium 4.0 mmol/L (3.5-5.1); Sodium 138 mmol/L (136-145); Thyroid Stimulating Hormone 1.24 uIU/mL (0.27-4.20); Total Protein 6.7 g/dL (6.6-8.7)
[2024-09-09] MEDS: nivolumab 240 MG in sodium chloride 0.9% 250 ML 548 MG IV (14:33)
[2024-09-09 15:19] VITALS: BP 129/70; PULSE 64; RESP 16; TEMP 36.8; O2SAT 94
== END 2024-09-09 23:59 | disposition home or self-care (01) ==
PROVIDERS: Internal Medicine; Nurse Practitioner; PCP Family Medicine; Visit Provider Nurse Practitioner Family
DX: Z51.12 Encounter for antineoplastic immunotherapy; C67.1 Malignant neoplasm of dome of bladder; Z79.620 Long term (current) use of immunosuppressive biologic; D64.9 Anemia, unspecified; R60.0 Localized edema; Z79.899 Other long term (current) drug therapy; Z95.828 Presence of other vascular implants and grafts; Z53.9 Procedure and treatment not carried out, unspecified reason
CPT/HCPCS: 80053; 83615; 84443; 85025; 96413; 99213; 99214; A4222; J7050; J9299

== ENCOUNTER 2024-09-24 12:15 | Oncology outpatient (recurring) (ONCR) | payer MEDICARE, SELFPAY ==
[2024-09-23 13:55] LABS: Hematocrit 34.9 % (36-47); Hemoglobin 10.90 g/dL (11.27-16.99); Mean Corpuscular HGB Conc 31.2 g/dL (30-55); Mean Corpuscular Hemoglobin 31.3 pg (27-33); Mean Corpuscular Volume 100.3 fl (85-98); Nucleated Red Blood Cells % 0 %; Platelet Count 229 10^3/cmm (157-399); Red Blood Count 3.48 10^6/uL (3.85-5.65); White Blood Count 5.48 10^3/uL (3.29-11.43)
[2024-09-23 14:08] LABS: Alanine Aminotransferase 8 U/L (0-33); Albumin Level 3.8 g/dL (3.5-5.2); Alkaline Phosphatase 111 U/L (35-105); Anion Gap 12.4 (5-19); Aspartate Amino Transferase 25 U/L (0-32); Blood Urea Nitrogen 25 mg/dL (8-23); Calcium 9.1 mg/dL (8.5-10.5); Carbon Dioxide 30 mmol/L (22-29); Chloride 104 mmol/L (98-107); Creatinine Clr Calc Pharmacy 56.5555; Globulin 3.4 g/dL (1.3-4.6); Glucose 100 mg/dL (65-115); Osmolality Calculated 298 mOsm/kg (285-295); Potassium 4.4 mmol/L (3.5-5.1); Sodium 142 mmol/L (136-145); Total Protein 7.2 g/dL (6.6-8.7)
[2024-09-23 15:15] VITALS: BP 122/52; PULSE 68; TEMP 36.1; O2SAT 94
[2024-09-23] MEDS: nivolumab 240 MG in sodium chloride 0.9% 250 ML 548 MG IV (15:26)
[2024-09-23 16:31] VITALS: BP 144/62; PULSE 74; RESP 18; TEMP 36.2; O2SAT 98
--- NOTE | 2024-09-24 12:15 | USCV_ITS ---
Josephine Ellis Age: 79 Gender: F : 1945 Exam Date: 09/24/2024 12:19 Ordering Phys: Greg Haq MD Technologist: Exam Location: [facility] – [place] Indication: bilat pedal edmema PROCEDURES: The venous duplex Doppler examination of both lower extremities was performed in the standard fashion. The following venous structures were evaluated: common femoral vein, profunda vein, proximal portion of the greater saphenous vein, superficial femoral vein, and the popliteal vein. FINDINGS: Normal 2-D Doppler and augmentation and compressibility throughout the lower extremity venous structures. Additional imaging through the proximal calf veins also reveals no thrombus. Limited evaluation of the greater saphenous vein is patent with no thrombus. CONCLUSIONS No evidence of right lower extremity DVT. No evidence of left lower extremity DVT. Lars Pickett MD (Electronically Signed) Final Date: 24 September 2024 12:50 S
== END 2024-09-24 23:59 | disposition home or self-care (01) ==
LOC: RAD 09-25
PROVIDERS: Internal Medicine; PCP Family Medicine; Visit Provider Nurse Practitioner Family
DX: Z53.9 Procedure and treatment not carried out, unspecified reason; R60.0 Localized edema
CPT/HCPCS: 80053; 83615; 85025; 93970; 96413; 99214; A4222; J7050; J9299

== ENCOUNTER 2024-10-08 11:22 | Oncology outpatient (recurring) (ONCR) | payer MEDICARE, SELFPAY ==
[2024-10-08 11:59] LABS: Hematocrit 35.5 % (36-47); Hemoglobin 11.10 g/dL (11.27-16.99); Mean Corpuscular HGB Conc 31.3 g/dL (30-55); Mean Corpuscular Hemoglobin 31.0 pg (27-33); Mean Corpuscular Volume 99.2 fl (85-98); Nucleated Red Blood Cells % 0 %; Platelet Count 219 10^3/cmm (157-399); Red Blood Count 3.58 10^6/uL (3.85-5.65); White Blood Count 4.53 10^3/uL (3.29-11.43)
[2024-10-08 12:24] LABS: Alanine Aminotransferase 9 U/L (0-33); Albumin Level 3.8 g/dL (3.5-5.2); Alkaline Phosphatase 112 U/L (35-105); Anion Gap 13.3 (5-19); Aspartate Amino Transferase 26 U/L (0-32); Blood Urea Nitrogen 27 mg/dL (8-23); Calcium 9.0 mg/dL (8.5-10.5); Carbon Dioxide 27 mmol/L (22-29); Chloride 106 mmol/L (98-107); Creatinine Clr Calc Pharmacy 56.7243; Globulin 3.4 g/dL (1.3-4.6); Glucose 101 mg/dL (65-115); Osmolality Calculated 299 mOsm/kg (285-295); Potassium 4.3 mmol/L (3.5-5.1); Sodium 142 mmol/L (136-145); Thyroid Stimulating Hormone 1.41 uIU/mL (0.27-4.20); Total Protein 7.2 g/dL (6.6-8.7)
[2024-10-08] MEDS: nivolumab 240 MG in sodium chloride 0.9% 250 ML 548 MG IV (13:21)
== END 2024-10-08 23:59 | disposition home or self-care (01) ==
PROVIDERS: Nurse Practitioner Family; PCP Family Medicine; Visit Provider Internal Medicine
DX: Z51.12 Encounter for antineoplastic immunotherapy (principal); C67.1 Malignant neoplasm of dome of bladder; D64.9 Anemia, unspecified; K44.9 Diaphragmatic hernia without obstruction or gangrene; R60.0 Localized edema; Z79.899 Other long term (current) drug therapy; Z95.828 Presence of other vascular implants and grafts
CPT/HCPCS: 80053; 83615; 84443; 85025; 96413; 99214; A4222; J7050; J9299

== ENCOUNTER → 2024-11-18 09:09 | Outpatient (BNVA) | payer MEDICARE, SELFPAY | PROVIDERS: PCP Family Medicine; Visit Provider Family Medicine | DX: R60.0 Localized edema (principal) | CPT/HCPCS: 80048 ==

== ENCOUNTER 2024-11-20 08:22 | Oncology outpatient (recurring) (ONCR) | payer MEDICARE, SELFPAY ==
--- NOTE | 2024-11-20 08:30 | PETR_ITS ---
PROCEDURE INFORMATION: Exam: PET/CT Skull Base to Mid-thigh Exam date and time: 11/20/2024 9:12 AM Age: 79 years old Clinical indication: Symptoms: Malignant neoplasm of dome bladder; Additional info: Malignant neoplasm of dome of bladder, Dr. Haq would like this done on 11/20/24 LABS AND CLINICAL REPORTS: Glucose: 108 mg/dl Treatment strategy for malignancy (PET staging): Restaging (PS) TECHNIQUE: Imaging protocol: Following at least four-hour fasting and following the injection of radiopharmaceutical, low dose CT images were obtained. Then, PET images were obtained. Attenuation corrected images were constructed using the CT scan. Fused images of PET and CT were reviewed. The standardized uptake values (SUV) reported below are maximum values within a region of interest, expressed in gm/ml. Exam includes orbital meatal line to mid-thigh. SUV normalization method: BodyWeight Radiopharmaceutical: 11.1 mCi F-18 FDG (Fluorodeoxyglucose), IV. Time of imaging post radiopharmaceutical administration: 45 minutes Injection site: RAC COMPARISON: PT PET skull to thigh SUBS [id number] 05/01/2024 11:11 AM FINDINGS: Tubes, catheters and devices: Left chest port terminates near the superior cavoatrial junction. Brain: Visualized brain has normal physiologic uptake. Pharynx: No abnormal uptake. Larynx: No abnormal uptake. Lungs, pleura and trachea: No abnormal uptake. Mild bibasilar platelike atelectasis versus scarring. Bilateral calcified granulomata. Heart: Normal physiologic uptake. Coronary arteries: Mild coronary artery calcification. Mediastinal space: No abnormal uptake. Diaphragm: Redemonstrated large hiatal hernia. Liver: No abnormal uptake. Gallbladder and biliary ducts: No abnormal uptake. Pancreas: No abnormal uptake. Spleen: No abnormal uptake. Adrenal glands: No abnormal uptake. Kidneys and ureters: Normal physiologic uptake. Stomach and bowel: No abnormal uptake. Colonic diverticulosis without findings of diverticulitis. Urinary bladder: Stable postsurgical changes from prior cystectomy with ileal conduit urinary diversion. Vasculature: No abnormal uptake. Moderate systemic atherosclerotic calcification without aortic aneurysm. Lymph nodes: Low-level bilateral hilar FDG uptake with partially calcified node on the left showing SUV max 4.2 on axial image 65. FDG avid distal periesophageal node versus esophageal thickening measures approximately 1 cm on axial image 91 and shows SUV max 3.9 on axial image 90. FDG avid nonenlarged periportal node with SUV max 5.1. Skeleton: Degenerative changes along the spine and sacroiliac joints. Stable pubic symphysis diastasis. Extensive thoracolumbar spine posterior instrumented fusion hardware and proximal right femur intramedullary nail and screw fixation. Evidence of prior right rotator cuff repair with increased FDG avid sclerosis at the right humeral head showing SUV max 7.9 on axial image 57, previously 6.9. Soft tissues: Bilateral shoulder muscle FDG uptake without underlying CT abnormality is likely benign physiologic activation or strain. METRICS: Mediastinal blood pool: SUV mean 2.2 Liver uptake: SUV mean 2.7 PET/PET skull to thigh SUBS [id number] IMPRESSION: 1. Prior cystectomy with ileal conduit without evidence of local recurrence. 2. FDG avid nonenlarged periportal lymph node may be reactive or metastatic. 3. Indeterminate FDG avid distal periesophageal lymph node versus esophageal thickening. 4. Large hiatal hernia. 5. Mild bilateral hilar FDG uptake with partially calcified node on the left may be benign granulomatous or reactive, metastasis not entirely excluded. 6. Evidence of prior right rotator cuff repair with increased FDG avid sclerosis at the right humeral head may indicate increased inflammatory posttreatment change, metastasis not excluded.
== END 2024-11-24 23:59 | disposition home or self-care (01) ==
LOC: RAD 09:15 → ONCMED 11-23 09:11
PROVIDERS: PCP Family Medicine; Visit Provider Internal Medicine
DX: C67.1 Malignant neoplasm of dome of bladder (principal); Z90.6 Acquired absence of other parts of urinary tract; R59.0 Localized enlarged lymph nodes; R93.89 Abnormal findings on diagnostic imaging of other specified body structures; K44.9 Diaphragmatic hernia without obstruction or gangrene; Z98.890 Other specified postprocedural states; Z96.89 Presence of other specified functional implants; R91.8 Other nonspecific abnormal finding of lung field; J84.10 Pulmonary fibrosis, unspecified; I25.10 Atherosclerotic heart disease of native coronary artery without angina pectoris; K57.30 Diverticulosis of large intestine without perforation or abscess without bleeding; M47.9 Spondylosis, unspecified; M46.1 Sacroiliitis, not elsewhere classified; M62.08 Separation of muscle (nontraumatic), other site
CPT/HCPCS: 78815; A9552

== ENCOUNTER 2024-11-26 10:43 | Oncology outpatient (recurring) (ONCR) | payer MEDICARE, SELFPAY ==
[2024-11-26 11:05] LABS: Hematocrit 35.9 % (36-47); Hemoglobin 11.30 g/dL (11.27-16.99); Mean Corpuscular HGB Conc 31.5 g/dL (30-55); Mean Corpuscular Hemoglobin 31.1 pg (27-33); Mean Corpuscular Volume 98.9 fl (85-98); Nucleated Red Blood Cells % 0 %; Platelet Count 218 10^3/cmm (157-399); Red Blood Count 3.63 10^6/uL (3.85-5.65); White Blood Count 5.04 10^3/uL (3.29-11.43)
[2024-11-26 11:33] LABS: Alanine Aminotransferase 8 U/L (0-33); Albumin Level 4.0 g/dL (3.5-5.2); Alkaline Phosphatase 116 U/L (35-105); Anion Gap 14.5 (5-19); Aspartate Amino Transferase 21 U/L (0-32); Blood Urea Nitrogen 27 mg/dL (8-23); Calcium 9.2 mg/dL (8.5-10.5); Carbon Dioxide 25 mmol/L (22-29); Chloride 104 mmol/L (98-107); Creatinine Clr Calc Pharmacy 56.2710; Globulin 3.5 g/dL (1.3-4.6); Glucose 104 mg/dL (65-115); Osmolality Calculated 293 mOsm/kg (285-295); Potassium 4.5 mmol/L (3.5-5.1); Sodium 139 mmol/L (136-145); Thyroid Stimulating Hormone 1.75 uIU/mL (0.27-4.20); Total Protein 7.5 g/dL (6.6-8.7)
== END 2024-12-25 23:59 | disposition home or self-care (01) ==
PROVIDERS: Nurse Practitioner Family; PCP Family Medicine; Visit Provider Internal Medicine
DX: C67.1 Malignant neoplasm of dome of bladder (principal); D64.9 Anemia, unspecified; R60.0 Localized edema; K46.9 Unspecified abdominal hernia without obstruction or gangrene; Z92.25 Personal history of immunosuppression therapy; Z95.828 Presence of other vascular implants and grafts; Z79.899 Other long term (current) drug therapy; Z98.890 Other specified postprocedural states
CPT/HCPCS: 36591; 80053; 83615; 84443; 85025; 99214

== ENCOUNTER 2025-01-07 09:24 | Oncology outpatient (recurring) (ONCR) | payer MEDICARE, SELFPAY ==
[2025-01-07 09:55] LABS: Hematocrit 33.9 % (36-47); Hemoglobin 10.90 g/dL (11.27-16.99); Mean Corpuscular HGB Conc 32.2 g/dL (30-55); Mean Corpuscular Hemoglobin 31.9 pg (27-33); Mean Corpuscular Volume 99.1 fl (85-98); Nucleated Red Blood Cells % 0 %; Platelet Count 287 10^3/cmm (157-399); Red Blood Count 3.42 10^6/uL (3.85-5.65); White Blood Count 4.45 10^3/uL (3.29-11.43)
[2025-01-07 10:19] LABS: Alanine Aminotransferase 12 U/L (0-33); Albumin Level 3.8 g/dL (3.5-5.2); Alkaline Phosphatase 121 U/L (35-105); Anion Gap 16.7 (5-19); Aspartate Amino Transferase 23 U/L (0-32); Blood Urea Nitrogen 21 mg/dL (8-23); Calcium 9.4 mg/dL (8.5-10.5); Carbon Dioxide 25 mmol/L (22-29); Chloride 105 mmol/L (98-107); Creatinine Clr Calc Pharmacy 56.2182; Globulin 3.5 g/dL (1.3-4.6); Glucose 145 mg/dL (65-115); Osmolality Calculated 300 mOsm/kg (285-295); Potassium 4.7 mmol/L (3.5-5.1); Sodium 142 mmol/L (136-145); Total Protein 7.3 g/dL (6.6-8.7)
== END 2025-01-24 23:59 | disposition home or self-care (01) ==
PROVIDERS: PCP Family Medicine; Visit Provider Nurse Practitioner
DX: C67.1 Malignant neoplasm of dome of bladder (principal); D64.9 Anemia, unspecified; R03.0 Elevated blood-pressure reading, without diagnosis of hypertension; R60.0 Localized edema; K46.9 Unspecified abdominal hernia without obstruction or gangrene; R59.0 Localized enlarged lymph nodes; Z92.25 Personal history of immunosuppression therapy; Z95.828 Presence of other vascular implants and grafts; Z79.899 Other long term (current) drug therapy; Z98.890 Other specified postprocedural states
CPT/HCPCS: 36591; 80053; 85025; 99213

== ENCOUNTER 2025-02-24 12:05 | Oncology outpatient (recurring) (ONCR) | payer MEDICARE, SELFPAY | END 2025-02-24 23:59 | disposition home or self-care (01) | PROVIDERS: PCP Family Medicine; Visit Provider Nurse Practitioner | DX: Z45.2 Encounter for adjustment and management of vascular access device (principal); Z95.828 Presence of other vascular implants and grafts | CPT/HCPCS: 96523 ==